=== PATIENT | female | born 1975 | race Hispanic/Latino ===

== ENCOUNTER 2017-06-18 21:17 | Emergency (ER) | payer SELFPAY ==
[2017-06-18] MEDS ORDERED: ALBUTEROL 2.5 MG/3 ML NEB SOL ONE (21:34)
[2017-06-18] MEDS ORDERED: IPRATROPIUM BROM 0.5MG/2.5ML ONE (21:34)
[2017-06-18] MEDS ORDERED: DEXAMETHASONE 10 MG/ML VIAL ONE (21:58)
[2017-06-18] MEDS ORDERED: AZITHROMYCIN 250 MG TAB ONE (21:58)
--- NOTE | 2017-06-18 22:49 | RAD REPORT ---
EXAM DESCRIPTION: RAD - Chest Pa And Lat (2 Views) - 06/18/2017 10:42 pm CLINICAL HISTORY: SOB COMPARISON: None. FINDINGS: The lungs are clear. The heart is normal in size. No displaced fractures. IMPRESSION: No acute or concerning finding suspected.
--- NOTE | 2017-06-18 23:33 | EDPHYS ---
Physician Documentation [facility] Name: Devora Baez Age: 41 yrs Sex: Female : 1975 Arrival Date: 06/18/2017 Time: 21:18 Bed 6 Private MD: ED Physician Chuck Joseph HPI: 06/18 21:48 This 41 yrs old Female presents to ER via Ambulatory with complaints of Cough, snw Shortness Of Breath, Breathing Difficulty. 21:48 The patient or guardian reports airway noise, cough, hoarse voice. Onset: The snw symptoms/episode began/occurred suddenly, and became persistent. Severity of symptoms: At their worst the symptoms were moderate, severe. Associated signs and symptoms: The patient has no apparent associated signs or symptoms. The patient has experienced similar episodes in the past, chronically, but today's symptoms are worse. The patient has not recently seen a physician. pt states she recently moved to [facility] to get assistance with medications and physicians. states she was dx with cystic fibrosis "a long time ago". states she takes no daily meds. Requests nebs, steroids, antibiotics.. 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 - Social history:: Smoking status: Patient/guardian denies using tobacco. ROS: 21:47 Constitutional: Negative for fever, chills, and weight loss, Eyes: Negative for injury, snw pain, redness, and discharge, ENT: Negative for injury, pain, and discharge, Neck: Negative for injury, pain, and swelling, Cardiovascular: Negative for chest pain, palpitations, and edema, Abdomen/GI: Negative for abdominal pain, nausea, vomiting, diarrhea, and constipation, Back: Negative for injury and pain, : Negative for injury, bleeding, discharge, and swelling, MS/Extremity: Negative for injury and deformity, Skin: Negative for injury, rash, and discoloration, Neuro: Negative for headache, weakness, numbness, tingling, and seizure. 21:47 Respiratory: Positive for cough, shortness of breath, wheezing, inspiratory, expiratory. Exam: 21:45 Constitutional: This is a well developed, well nourished patient who is awake, alert, snw and in no acute distress. Head/Face: Normocephalic, atraumatic. Eyes: Pupils equal round and reactive to light, extra-ocular motions intact. Lids and lashes normal. Conjunctiva and sclera are non-icteric and not injected. Cornea within normal limits. Periorbital areas with no swelling, redness, or edema. ENT: Nares patent. No nasal discharge, no septal abnormalities noted. Tympanic membranes are normal and external auditory canals are clear. Oropharynx with no redness, swelling, or masses, exudates, or evidence of obstruction, uvula midline. Mucous membranes moist. Neck: Trachea midline, no thyromegaly or masses palpated, and no cervical lymphadenopathy. Supple, full range of motion without nuchal rigidity, or vertebral point tenderness. No Meningismus. Chest/axilla: Normal chest wall appearance and motion. Nontender with no deformity. No lesions are appreciated. Cardiovascular: Regular rate and rhythm with a normal S1 and S2. No gallops, murmurs, or rubs. Normal PMI, no JVD. No pulse deficits. 21:45 Abdomen/GI: Soft, non-tender, with normal bowel sounds. No distension or tympany. No guarding or rebound. No evidence of tenderness throughout. Back: No spinal tenderness. No costovertebral tenderness. Full range of motion. Skin: Warm, dry with normal turgor. Normal color with no rashes, no lesions, and no evidence of cellulitis. MS/ Extremity: Pulses equal, no cyanosis. Neurovascular intact. Full, normal range of motion. Neuro: Awake and alert, GCS 15, oriented to person, place, time, and situation. Cranial nerves II-XII grossly intact. Motor strength 5/5 in all extremities. Sensory grossly intact. Cerebellar exam normal. Normal gait. 21:45 Respiratory: mild respiratory distress is noted, Respirations: labored breathing, accessory muscle usage, shallow respirations, tachypnea, Breath sounds: wheezing: inspiratory expiratory is heard diffusely. Vital Signs: 21:22 BP 136 / 86; Pulse 87; Resp 19; Temp 97.8; Pulse Ox 100% on R/A; Weight 92.99 kg; la1 Height 4 ft. 11 in. (149.86 cm); 22:28 BP 119 / 91; Pulse 109; Resp 20; Pulse Ox 98% on R/A; Pain 0/10; ao 23:27 BP 118 / 73; Pulse 98; Resp 16; Pulse Ox 99% on R/A; Pain 0/10; ao 21:22 Body Mass Index 41.40 (92.99 kg, 149.86 cm) la1 MDM: 21:25 Patient medically screened. snw 23:35 Data reviewed: vital signs, nurses notes. Data interpreted: Pulse oximetry: on room air snw is 99 %. Interpretation: normal. Counseling: I had a detailed discussion with the patient and/or guardian regarding: the historical points, exam findings, and any diagnostic results supporting the discharge/admit diagnosis, radiology results, the need for outpatient follow up, to return to the emergency department if symptoms worsen or persist or if there are any questions or concerns that arise at home. Special discussion: Based on the history and exam findings, there is no indication for further emergent testing or inpatient evaluation. I discussed with the patient/guardian the need to see the primary care provider for further evaluation of the symptoms. I discussed with the patient/guardian the need to see the associate professor of library science for further evaluation of the symptoms. 06/18 21:25 Order name: Chest Pa And Lat (2 Views) XRAY; Complete Time: 23:03 snw Administered Medications: 21:36 Drug: DuoNeb (3:1) (2.5 mg - 0.5 mg) 3 ml Route: Nebulizer; la1 23:43 Follow up: Response: No adverse reaction ao 22:03 Drug: Decadron 10 mg Route: IM; Site: left deltoid; ao 23:43 Follow up: Response: No adverse reaction ao 22:03 Drug: Zithromax 500 mg Route: PO; ao 23:43 Follow up: Response: No adverse reaction ao Disposition: 06/19 05:44 Co-signature as Attending Physician, Chuck Joseph MD I agree with the assessment and tw4 plan of care. Disposition: 06/18/17 23:32 Discharged to Home. Impression: Wheezing, Dyspnea, unspecified. - Condition is Stable. - Discharge Instructions: Asthma, Adult, Shortness of Breath. - Prescriptions for Prednisone 20 mg Oral Tablet - take 2 tablet by ORAL route once daily for 5 days; 10 tablet. Albuterol Sulfate 90 mcg/actuation - inhale 1-2 puff by INHALATION route every 4-6 hours; 1 Inhaler. Zithromax 500 mg Oral Tablet - take 1 tablet by ORAL route once daily for 5 days; 5 tablet. - Medication Reconciliation Form, Thank You Letter, Antibiotic Education, Prescription Opioid Use form. - Follow up: Private Physician; When: 1 - 2 days; Reason: Recheck today's complaints, Continuance of care, Re-evaluation by your physician. Follow up: Emergency Department; When: As needed; Reason: Worsening of condition. Signatures: Dispatcher [employer] EDMS Mandie Clark, MILAGRO-C METAL TUBE CUTTER-Csnw Venancio Alberts RN RN la1 Jose Eduardo Phillips RN RN ao Chuck Joseph MD MD tw4 Corrections: (The following items were deleted from the chart) 06/18 23:42 23:32 06/18/2017 23:32 Discharged to Home. Impression: Wheezing; Dyspnea, unspecified. ao Condition is Stable. Forms are Medication Reconciliation Form, Thank You Letter, Antibiotic Education, Prescription Opioid Use. Follow up: Private Physician; When: 1 - 2 days; Reason: Recheck today's complaints, Continuance of care, Re-evaluation by your physician. Follow up: Emergency Department; When: As needed; Reason: Worsening of condition. snw
--- NOTE | 2017-06-18 23:33 | ER ---
Nurse's Notes [facility] Name: Devora Baez Age: 41 yrs Sex: Female : 1975 Arrival Date: 06/18/2017 Time: 21:18 Bed 6 Private MD: Diagnosis: Wheezing;Dyspnea, unspecified Presentation: 06/18 21:22 Presenting complaint: Patient states: I have cystic fibrosis and I cannot afford to get la1 care anywhere. I am getting frequent attacks of SOB and I just had a really bad one. I need some IV steroids and breathing treatments. Transition of care: patient was not received from another setting of care. Onset of symptoms was June 18, 2017. Initial Sepsis Screen: Does the patient meet any 2 criteria? No. Patient's initial sepsis screen is negative. Does the patient have a suspected source of infection? No. Patient's initial sepsis screen is negative. Care prior to arrival: None. 21:22 Method Of Arrival: Ambulatory la1 21:22 Acuity: GARCIA 3 la1 Triage Assessment: 21:43 General: Appears in no apparent distress. General: Behavior is cooperative. ao Respiratory: Reports shortness of breath cough that is Onset: The symptoms/episode began/occurred at an unknown time. the patient has moderate shortness of breath. 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 - Social history:: Smoking status: Patient/guardian denies using tobacco. Screenin:42 Abuse screen: Denies threats or abuse. Denies injuries from another. Nutritional ao screening: No deficits noted. Tuberculosis screening: No symptoms or risk factors identified. Fall Risk None identified. Assessment: 21:35 General: Appears in no apparent distress. uncomfortable, obese, Behavior is. Pain: ao Complains of pain in chest. Pain:. Neuro: Level of Consciousness is awake, alert, obeys commands, Oriented to person, place, time, situation, Appropriate for age Moves all extremities. Speech is normal, Facial symmetry appears normal. Cardiovascular: Capillary refill < 3 seconds Patient's skin is warm and dry. Rhythm is regular. Respiratory: Airway is compromised Respiratory effort is even, Respiratory pattern is regular, Sputum is thick, GI: Abdomen is obese, Bowel sounds present X 4 quads. : No signs and/or symptoms were reported regarding the genitourinary system. EENT: No signs and/or symptoms were reported regarding the EENT system. Derm: No signs and/or symptoms reported regarding the dermatologic system. Musculoskeletal: No signs and/or symptoms reported regarding the musculoskeletal system. 22:26 Reassessment: Patient appears in no apparent distress at this time. Patient and/or ao family updated on plan of care and expected duration. Pain level reassessed. Patient is alert, oriented x 3, equal unlabored respirations, skin warm/dry/pink. waiting on dispo. 23:27 Reassessment: Patient appears in no apparent distress at this time. Patient and/or ao family updated on plan of care and expected duration. Pain level reassessed. Patient is alert, oriented x 3, equal unlabored respirations, skin warm/dry/pink. Patient states that she is feeling better and would like to be discharge. Mandie was notified and agree to discharge her. 23:42 Reassessment: DC instructions given to patient. Patient understand the POC and to ao follow up with PCP. Patient has no questions at this time. Vital Signs: 21:22 BP 136 / 86; Pulse 87; Resp 19; Temp 97.8; Pulse Ox 100% on R/A; Weight 92.99 kg; la1 Height 4 ft. 11 in. (149.86 cm); 22:28 BP 119 / 91; Pulse 109; Resp 20; Pulse Ox 98% on R/A; Pain 0/10; ao 23:27 BP 118 / 73; Pulse 98; Resp 16; Pulse Ox 99% on R/A; Pain 0/10; ao 21:22 Body Mass Index 41.40 (92.99 kg, 149.86 cm) la1 ED Course: 21:18 Patient arrived in ED. am2 21:22 Triage completed. la1 21:23 Arm band placed on left wrist. la1 21:24 Mandie Clark FNP-C is PHCP. snw 21:24 Chuck Joseph MD is Attending Physician. snw 21:28 Jose Eduardo Phillips, RN is Primary Nurse. ao 21:42 Patient has correct armband on for positive identification. Pulse ox on. NIBP on. ao 22:40 Chest Pa And Lat (2 Views) XRAY In Process Unspecified. EDMS 23:41 No provider procedures requiring assistance completed. Patient admitted, IV remains in ao place. Administered Medications: 21:36 Drug: DuoNeb (3:1) (2.5 mg - 0.5 mg) 3 ml Route: Nebulizer; la1 23:43 Follow up: Response: No adverse reaction ao 22:03 Drug: Decadron 10 mg Route: IM; Site: left deltoid; ao 23:43 Follow up: Response: No adverse reaction ao 22:03 Drug: Zithromax 500 mg Route: PO; ao 23:43 Follow up: Response: No adverse reaction ao Outcome: 23:32 Discharge ordered by . snmilagro 23:41 Discharged to home ambulatory. ao 23:41 Condition: stable 23:41 Discharge instructions given to patient, Instructed on discharge instructions, follow up and referral plans. Demonstrated understanding of instructions, follow-up care, medications, Prescriptions given X 3. 23:42 Patient left the ED. ao Signatures: Dispatcher [employer] EDMS Mandie Clark, PRODUCT/INDUSTRY CONSULTANT-C PRODUCT/INDUSTRY CONSULTANT-Csnw Venancio Alberts RN RN la1 Jose Eduardo Phillips, RN RN Salina Hdz
== END 2017-06-18 23:42 | disposition home or self-care (01) ==
LOC: ER 21:17
DX: R06.00 Dyspnea, unspecified (principal); Z88.8 Allergy status to other drugs, medicaments and biological substances
CPT/HCPCS: 71046; 94640; 96372; 99284; J1100

== ENCOUNTER 2021-05-29 19:02 | Emergency (ER) | payer OTHER ==
--- OUTSIDE RECORDS SUMMARY | 2021-05-29 19:09 | XMS REPORT | Continuity of Care Document ---
:1975 Author Organization [facility] t Address [address] [place] [address] Care Team Providers Name Role Phone PCP, DOES NOT HAVE A Primary Care Physician Unavailable Joyce Phillips Attending Clinician Unavailable GAURAV ARREOLA Attending Clinician Unavailable GAURAV ARREOLA Attending Clinician Unavailable VIKASH LOMBARDI Attending Clinician Unavailable JOSEFA Attending Clinician Unavailable Lab, - Db Attending Clinician Unavailable Gaurav Arreola MD Attending Clinician [place] Attending Clinician Unavailable Nicholas Cabrera Attending Clinician Unavailable Joyce Phillips Admitting Clinician Unavailable Nicholas Patrick Admitting Clinician Unavailable Payers Payer Name Policy Type Policy Number Effective Date Expiration Date S ource Problems This patient has no known problems. Allergies, Adverse Reactions, Alerts Allergy Allergy Status Severity Reaction(s) Onset Inactive Treating Comm ents Source Name Type Date Date Clinician DOXYCYCL DRUG Active Hiv Univers INE INGREDI 4-22 ity of 00:00: [address] PROMETHA DRUG Active Other-Cmnt Univ ers ZINE INGREDI -22 ity of 00:00: [address] Doxycycl Propensi Active Hives Univer s ine ty to - ity of adverse 00:00: [place] reaction [facility] Prometha Propensi Active Hives 2021-0 Univer s zine ty to 4-22 ity of adverse 00:00: [place] reaction [facility] prometha DA Active U 2020-0 [facility] zine HCl 6-21 Corpus 00:00: [place] [address] [place] prometha DA Active U HYPOTENSION 2020-0 [facility] zine HCl 6-21 Corpus 00:00: [place]amm[place] 00 [place] clindamy DA Active U hives 2020-0 [facility] leanna 6-21 Corpus 00:00: [place]ammie 00 [place] clindamy DA Active U 2020-0 [facility] leanna 6-21 Corpus 00:00: [place]ammie 00 [place] clindamy DA Active U 2020-0 [facility] leanna 1-05 Corpus 00:00: [place]amm[place] 00 [place] clindamy DA Active U hives 2020-0 [facility] leanna 1-05 Corpus 00:00: [place] 00 [place] prometha DA Active U 2020-1 [facility] zine HCl 2-19 Corpus 00:00: [place] 00 [place] prometha DA Active U HYPOTENSION 2020-1 [facility] zine HCl 2-19 Corpus 00:00: [place]ammie 00 [place] prometha DA Active U 2020-0 [facility] zine HCl 3-08 Corpus 00:00: [place]ammie 00 [place] prometha DA Active U HYPOTENSION 2020-0 [facility] zine HCl 3-08 Corpus 00:00: [place]ammie 00 [place] prometha DA Active U 2010-0 [facility] zine HCl 8-01 Corpus 00:00: [place]amm[place] 00 [place] prometha DA Active U HYPOTENSION 2010-0 [facility] zine HCl 8-01 Corpus 00:00: [place]amm[place] 00 [place] NO KNOWN Drug Active Univers ALLERGIE Class ity of [facility] Social History Social Habit Start Date Stop Date Quantity Comments Source Exposure to 2021-05-18 2021-05-28 Not sure [facility] SARS-CoV-2 (event) 00:00:00 13:13:00 Medica l Branch Sex Assigned At [birth year] [facility] 00:00:00 00:00:00 Medical Branch Smoking Status Start Date Stop Date Source Unknown if ever smoked [facility] Medications Ordered Filled Start Stop Current Ordering Indication Dosage Frequency Signature Comments Components Source Medication Medication Date Date Medication? Clinician (SIG) Name Name cetirizine Yes 10mg Take 10 mg U nivers 10 mg 4-18 by mouth ity of tablet 00:00: daily. [place] [address] Medical Branch pantoprazol Yes 40mg Take 40 mg Univers e 40 mg EC 4-14 by mouth ity o f tablet 00:00: daily. [place] [address] Medical Branch venlafaxine Yes TAKE ONE Un keanu 75 mg 4-06 (1) ity of tablet 00:00: TABLET(S) BY MOUTH Medical WITH FOOD Branch ONCE A DAY FOR 30 DAY(S). propranolol Yes TAKE ONE Un keanu [place] 80 mg 24 4-06 (1) ity of hr capsule 00:00: CAPSULE(S) [place] 00 BY MOUTH Medical ONCE A DAY Branch FOR 30 DAYS. gabapentin Yes 400mg Take 400 Un keanu 400 mg 4-06 mg by ity of capsule 00:00: mouth [place] daily. Medical Branch fluticasone Yes INSTILL Uni vers propionate 4-06 ONE (1) ity of 50 00:00: SPRAY IN [place] mcg/actuati 00 EACH Medical on nasal NOSTRIL Branch spray ONCE A DAY FOR 30 DAY(S). PROAIR HFA Yes INHALE ONE U nivers 90 4-05 (1) PUFF ity of mcg/actuati 00:00: NEEDED [place] on inhaler 00 BY MOUTH Medic al EVERY 4 Branch HOURS. predniSONE Yes TAKE TWO Uni vers 20 mg 4-05 (2) ity of tablet 00:00: TABLET(S) BY MOUTH Medical DAILY FOR Branch FIVE DAYS. levalbutero Yes INHALE THE Univers l 1.25 mg/3 4-05 CONTENTS ity of mL 00:00: OF ONE [place] nebulizer 00 VIAL VIA Medica l solution NEBULIZER Branch EVERY 8 HOURS. LINZESS 290 Yes TAKE ONE Un keanu mcg Cap 3-25 (1) ity of 00:00: CAPSULE(S) BY MOUTH Medical ONCE A DAY Branch AT LEAST 30 MINUTES BEFORE THE FIRST MEAL OF THE DAY. escitalopra Yes TAKE ONE Un keanu m oxalate 2-26 (1) ity of 10 mg 00:00: TABLET(S) [place] tablet 00 BY MOUTH Medical ONCE A DAY Branch FOR 90 DAYS. oseltamivir Yes TAKE ONE Un keanu 75 mg 2-25 (1) ity of capsule 00:00: CAPSULE(S) [place] 00 BY MOUTH Medical TWICE A Branch DAY FOR 5 DAYS. butalbital- Yes TAKE ONE Un keanu acetaminoph 2-25 (1) ity of en-caff 00:00: TABLET(S) [place] 50-325-40 00 BY MOUTH Medica l mg tablet EVERY FOUR Bran ch HOURS NEEDED. Procedures Procedure Date / Time Performed Performing Clinician [facility] ava [id number] 2020-07-28 00:00:00 REDVE [facility] Encounters Start End Encounter Admission Attending Care Care Encounter Source Date/Time Date/Time Type Type Clinicians Facility Department ID 2020-07-28 [facility] [id number] 11:53:00 Rachel [id number] [facility] 2020-02-11 Inpatient [facility] ER [id number] [facility] 13:38:00 [id number] [facility] 2020-02-03 Inpatient [facility] ER [id number] [facility] 13:40:00 [id number] [facility] 2020-01-28 Inpatient [facility] ER [id number] [facility] 11:40:00 [id number] [facility] 2020-01-25 Inpatient [facility] ER [id number] [facility] 19:07:00 [id number] [facility] 2020-01-06 Inpatient [facility] ER [id number] [facility] 09:54:00 [id number] [facility] 2019-11-09 Inpatient [facility] ER [id number] [facility] 22:06:00 [id number] [facility] 2019-07-04 Inpatient [facility] ER [id number] [facility] 02:45:00 [id number] [facility] 2019-05-23 Inpatient [facility] ER [id number] 16:42:00 [id number] [facility] 2019-04-14 Inpatient [facility] ER [id number] [facility] 17:14:00 [id number] [facility] 2019-03-19 Inpatient [facility] ER [id number] [facility] 17:44:00 [id number] [facility] 2021-07-30 2021-07-30 Outpatient R NEGRITO ARREOLA [facility] [id number] Univers 11:00:00 11:00:00 NEGRITO ARREOLA [id number] [facility] 2021-06-29 2021-06-29 Outpatient R HARJIT, [facility] [id number] Univers 11:00:00 11:00:00 JACKSON [id number] [facility] 2021-06-10 2021-06-10 Outpatient R JOSEFA, [facility] [id number] Univers 13:00:00 13:00:00 ANALI [id number] [facility] 2021-05-28 2021-05-28 [facility], Ang - Db [facility] [id number] Univers 15:00:00 15:15:00 Visit Negrito Arreola [facility] [id number] [facility] [id number] Obed as SHAKILA?BLEA [phone] [address] MEDICAL OFFICE BUILDING 2021-05-28 2021-05-28 Outpatient R [facility] [id number] Univers 15:00:00 15:00:00 [id number] [facility] 2021-05-28 2021-05-28 Outpatient NEGRITO GALE [facility] [id number] Univers 15:00:00 15:00:00 ELBANEGRITO Mena [facility] 2021-01-26 2021-01-26 Emergency EM [place], [facility] ER [id number] [facility] 21:25:00 22:28:00 Sendy [id number] [facility] 2021-01-26 2021-01-26 Emergency EM [place], [facility] [id number] [facility] 21:25:00 22:28:00 Sendy 30 [facility] 2020-09-19 2020-09-[address] [facility], [facility] ER [id number] [facility] 17:03:00 21:50:00 Medda [id number] [facility] 2020-07-27 2020-07-30 Inpatient SIMEON Phillips, [facility] [id number] [facility] 16:41:00 20:11:00 Rachel [id number] [facility] Results Test Description Test Time Test Comments Results Result Comments Source UA RFLX MICROSCOPIC CULTURE 2021-01-26 22:03:00 Test Item Value Reference Range Interpretation Comme nts UA COLOR (test code = COLU) YELLOW YELLOW UA APPEARANCE (test code = APPU) CLEAR CLEAR UA GLUCOSE DIPSTICK (test code = DGLUU) NEGATIVE mg/dL NEGATIVE UA BILIRUBIN DIPSTICK (test code = BILU) NEGATIVE NEGATIVE UA KETONE DIPSTICK (test code = KETU) NEGATIVE mg/dL NEGATIVE UA SPECIFIC GRAVITY (test code = SGU) 1.025 1.001-1.035 N UA BLOOD DIPSTICK (test code = ЮЛИЯ) 1+ NEGATIVE A UA PH DIPSTICK (test code = EDY) 6.0 5.5-7.0 N UA PROTEIN DIPSTICK (test code = PROU) 15 mg/dL NEGATIVE A UA UROBILINOGEN DIPSTICK (test code = URO) NORMAL mg/dL NORMAL UA NITRITE DIPSTICK (test code = BLANQUITA) NEGATIVE NEGATIVE UA LEUKOCYTE ESTERASE DIPSTICK (test code = LEUU) 25 NEGA TIVE A UA COMMENT (test code = COMU) LESS THAN 10 ML VOL URINE SPECIMEN DESCRIPTION (test code = UASPEC) Clean Catch UA WBC (test code = WBCU) < 10 #/hpf <10 UA SQUAMOUS CELLS (test code = SQU) 40 - 60 #/lpf <100 UA CULTURE NEEDED? (test code = UACULT) Criteria not met Indication for culture: Suprapubic PainURINE SOURCE: Clean CatchUA [id number] 22:03:00 Test Item Value Reference Range Interpretation Comments UA RBC (test code = RBCU) 16-20 #/hpf NONE SEEN UA BACTERIA (test code = BACU) 3+ #/hpf NONE SEEN UA MUCUS (test code = MUCU) 1+ #/lpf NONE SEEN Indication for culture: Suprapubic PainURINE SOURCE: Clean CatchLACTIC ACID 2020-09-19 19:59:00 Test Item Value Reference Range Interpretation Comments LACTIC ACID (test code = LACT) 0.8 MMOL/L 0.5-2.2 N COMPREHENSIVE METABOLIC [id number] 19:57:00 Test Item Value Reference Range Interpretation Comments SODIUM (test code = 138 MMOL/L 133-145 N NA) POTASSIUM (test code = 4.2 MMOL/L 3.6-5.2 N K) CHLORIDE (test code = 103 MMOL/L 100-108 N CL) CARBON DIOXIDE (test 29 MMOL/L 22-32 N code = CO2) GLUCOSE (test code = 76 MG/DL 65-99 N Results of this assay GLU) method may be f alsely depressed orele vated if patient is t aking sulfasalazine. BLOOD UREA NITROGEN 7 MG/DL 6-20 N (test code = BUN) GLOMERULAR FILTRATION 75 58-135 N Report ing units: RATE (test code = GFR) mL/mi n/1.73m\\S\\2 (Modified MDRD Formula) CREATININE (test code 0.82 MG/DL 0.60-1.00 N = CREAT) TOTAL PROTEIN (test 7.2 G/DL 6.4-8.2 N code = PROT) ALBUMIN (test code = 3.4 G/DL 3.4-5.0 N ALB) GLOBULIN (test code = 3.8 G/DL 1.5-3.8 N GLOB) ALBUMIN/GLOBULIN RATIO 0.9 1.1-2.2 L (test code = A/G) CALCIUM (test code = 8.8 MG/DL 8.7-10.5 N CA) BILIRUBIN TOTAL (test 0.3 MG/DL 0.0-1.0 N code = BILT) SGOT/AST (test code = 30 Units/L 15-37 N Result s of this assay AST) method may be f alsely depressed orele vated if patient is t aking sulfasalazine. SGPT/ALT (test code = 51 Units/L 30-65 N Result s of this assay ALT) method may be f alsely depressed orele vated if patient is t aking sulfasalazine. ALKALINE PHOSPHATASE 95 Units/L 50-136 N TOTAL (test code = ALKP) HCG SERUM [id number] 19:43:00 Test Item Value Reference Range Interpretation Comments HCG SERUM QUAL NEGATIVE NEGATIVE False negativ es may occur (test code = when levels of hCGare below HCGQL) 10 mIU/ml. When is still suspec ronald, a new specimenshould be obtained after 48 hours and re-tested.If wa iting 48 hours is not me dically advisable,the t est result should be confi rmed using aquantitative h CG assay. CBC W/AUTO [id number] 19:38:00 Test Item Value Reference Range Interpretation Comments WHITE BLOOD CELL (test code = 5.74 x10 3/uL 4.80-10.80 N WBC) RED BLOOD CELL (test code = 4.45 x10 6/uL 4.2-5.4 N RBC) HEMOGLOBIN (test code = HGB) 12.6 G/DL 12.0-16.0 N HEMATOCRIT (test code = HCT) 38.9 % 37-47 N MEAN CELL VOLUME (test code = 87.4 FL 81-99 N MCV) MEAN CELL HGB (test code = MCH) 28.3 PG 27-31 N MEAN CELL HGB CONCENTRATION 32.4 G/DL 33-37 L (test code = MCHC) RED CELL DISTRIBUTION WIDTH 17.2 % 11.5-14.5 H (test code = RDW) PLATELET COUNT (test code = 282 x10 3/uL 150-450 N PLT) MEAN PLATELET VOLUME (test code 8.8 FL 7.4-10.4 N = MPV) NEUTROPHIL % (test code = NT%) 45.9 % 42-86 N LYMPHOCYTE % (test code = LY%) 33.3 % 24-44 N MONOCYTE % (test code = MO%) 19.2 % 0.0-4.0 H EOSINOPHIL % (test code = EO%) 1.6 % 0.0-2.7 N BASOPHIL % (test code = BA%) 0.0 % 0.0-0.5 N NEUTROPHIL # (test code = NT#) 2.64 x10 3/uL 1.8-7.7 N LYMPHOCYTE # (test code = LY#) 1.91 x10 3/uL 1.0-4.8 N MONOCYTE # (test code = MO#) 1.10 x10 3/uL 0.0-0.8 H EOSINOPHIL # (test code = EO#) 0.09 x10 3/uL 0.0-0.5 N BASOPHIL # (test code = BA#) 0.00 x10 3/uL 0.0-0.2 N - XR CHEST 1 [id number] 18:12:00 [facility] : 1975 Sex: F Patient Name: KAREEN LOTT Unit No: [id number] EXAMS: CPT CODE: [id number] XR CHEST 1 V [id number] Reason: COUGH EXAM: - XR CHEST 1 V LOCATION: C3 HISTORY: COUGH COMPARISON: 07/27/2020 FINDINGS: Single view of the chest. No indwelling lines or tubes. No pneumothorax. The lungs are clear without significant effusions. The mediastinal contours are unremarkable/unchanged. No acute osseous findings are present. IMPRESSION: No acute cardiopulmonary abnormality. at 1812 Reported and signed by: Surjit Ortiz MD CC: Christiano Singh SAP ARIBA CONSULTANT; Radha Patrick DO; Omi Cabrera MD Technologist: Jame Medina CT Trscrpt Dt/ ([email or web address] Orig Print D/T: S: 09/19/2020 (181) [place] FSED NAME: KAREEN LOTT [facility] [address] [place] [address] PHYS: Omi Oh MD [address] : 1975 AGE: 45 SEX: F [place], [place] [address] LOC: REJI PHONE #: [phone] EXAM DATE: 09/19/2020 STATUS: REG ER FAX #: RAD NO: DC Dt: PAGE 1 Signed ReportCOVID 19 INHOUSE [id number] 17:59:00 Test Item Value Reference Range Interpretation Comments COVID 19 POSITIVE Negative A Results called to and read back INHOUSE AG by ARLEEN MORRIS PE, RN; [id number], (test code = 09/19/20, Mamadou Walters." [id number]) The Kelsie SARS Antigen DARELL does not differentia te betweenSARS-CoV and SARS-CoV-2 " The Kelsie SARS Antigen DARELL emp loys immunofluoresce ncetechnology in a sandwich design that is used with Kelsie todetect nucleocapsid protein from SA RS-CoV and SARS-CoV-2.This test allows for the detection o f SARS-CoV [id number]-6. The test detects, but does not differentiate,b etween the two viruses. " Resu lts are for the identification of UMBW-ArU-1kygwr ocapsid protein antigen. Antige n is generallydetect able in upper respiratory spe cimens during the acutephase of i nfection. Positive results indicat e the presenceof viral antigens, but clinical correlation wit h patienthistory and other diagn ostic information is necessary to determine infection statu s. Positive results do not rule outbacterial infection or co -infection with other viruses. Theagent detected may not be the definite cause of disease. " Nega tive results should be treat ed as presumptive " This test has not been FDA cleared or appr carol; the testhas been authorized by FDA under an Emergency UseAu thorization (EUA) for use by labo ratories certified underthe CLIA t hat meet the requirements to perform moderate,high o r waived complexity test s. This test is authorized foru se at the Point of Care (POC), i.e ., in patient caresettings op erating under a CLIA Certificat e of Waiver,Certific ate of Compliance, or Certificate of Accreditation MYCOPLASMA PNEUMONIAE [id number] 07:15:00 Test Item Value Reference Range Interpretation Comments MYCOPLASMA Negative Negative No Mycoplasma p neumoniae DNA PNEUMONIAE DNA detected.This test was (test code = developed and i ts performance MYCODNA) characteristics determined by [facility]. It kuo s not been cleared or appr ovedby the Food and Drug Admini stration. The FDA hasdetermin ed that such clearance or ap proval is notnecessary.Pe rformed At: [facility] [id number] [place], [place] [id number] ra Ame [place] Ph:[phone] AB MYCOPLASMA [id number] 22:07:00 Test Item Value Reference Range Interpretation Comments AB MYCOPLASMA IGM < 770 U/mL 0-769 (test code = Negative MYCOMAB) <770Clinically significant latonya unt of M. pneumoniae antibodynot det ected. Low Positive 770 - 950M. pneumonia e specific IgM presumptively d etected. Itis recommend ed that another sample be collected 1-2we eks later to assure reactivity. Positive >950Highly sign ificant amount of M. pn eumoniae specificIgM ant ibody detected.Perfor med At: [facility] [address] [id number] ra Ame [place] Ph:[phone] COMPREHENSIVE METABOLIC [id number] 17:26:00 Test Item Value Reference Range Interpretation Comments SODIUM (test code = 139 MMOL/L 133-145 N NA) POTASSIUM (test code = 4.2 MMOL/L 3.6-5.2 N K) CHLORIDE (test code = 102 MMOL/L 100-108 N CL) CARBON DIOXIDE (test 24 MMOL/L 22-32 N code = CO2) GLUCOSE (test code = 97 MG/DL 65-99 N Results of this GLU) assay method ma y be falsely depress ed orelevated if patient is taki ng sulfasalazine. BLOOD UREA NITROGEN 7 MG/DL 6-20 N (test code = BUN) GLOMERULAR FILTRATION 97 58-135 N Report ing units: RATE (test code = GFR) mL/mi n/1.73m\\S\\2 (Modified MDRD Formula) CREATININE (test code 0.66 MG/DL 0.60-1.00 N = CREAT) TOTAL PROTEIN (test 6.8 G/DL 6.4-8.2 N code = PROT) ALBUMIN (test code = 3.1 G/DL 3.4-5.0 L ALB) GLOBULIN (test code = 3.7 G/DL 1.5-3.8 N GLOB) ALBUMIN/GLOBULIN RATIO 0.8 1.1-2.2 L (test code = A/G) CALCIUM (test code = 8.4 MG/DL 8.7-10.5 L CA) BILIRUBIN TOTAL (test 0.3 MG/DL 0.0-1.0 N code = BILT) SGOT/AST (test code = 30 Units/L 15-37 N Result s of this AST) assay method ma y be falsely depress ed orelevated if patient is taki ng sulfasalazine. SGPT/ALT (test code = 44 Units/L 30-65 N Result s of this ALT) assay method ma y be falsely depress ed orelevated if patient is taki ng sulfasalazine. ALKALINE PHOSPHATASE 108 Units/L 50-136 N TOTAL (test code = ALKP) [id number] 17:26:00 Test Item Value Reference Range Interpretation Comments MAGNESIUM (test code = MAG) 2.1 MG/DL 1.8-2.4 N COMPREHENSIVE METABOLIC [id number] 08:59:00 Test Item Value Reference Range Interpretation Comments SODIUM (test code = 140 MMOL/L 133-145 N NA) POTASSIUM (test code = 3.9 MMOL/L 3.6-5.2 N K) CHLORIDE (test code = 107 MMOL/L 100-108 N CL) CARBON DIOXIDE (test 26 MMOL/L 22-32 N code = CO2) GLUCOSE (test code = 86 MG/DL 65-99 N Results of this assay GLU) method may be f alsely depressed orele vated if patient is t aking sulfasalazine. BLOOD UREA NITROGEN 9 MG/DL 6-20 N (test code = BUN) GLOMERULAR FILTRATION 85 58-135 N Report ing units: RATE (test code = GFR) mL/mi n/1.73m\\S\\2 (Modified MDRD Formula) CREATININE (test code 0.74 MG/DL 0.60-1.00 N = CREAT) TOTAL PROTEIN (test 6.6 G/DL 6.4-8.2 N code = PROT) ALBUMIN (test code = 2.8 G/DL 3.4-5.0 L ALB) GLOBULIN (test code = 3.8 G/DL 1.5-3.8 N GLOB) ALBUMIN/GLOBULIN RATIO 0.7 1.1-2.2 L (test code = A/G) CALCIUM (test code = 8.2 MG/DL 8.7-10.5 L CA) BILIRUBIN TOTAL (test 0.4 MG/DL 0.0-1.0 N code = BILT) SGOT/AST (test code = 16 Units/L 15-37 N Result s of this assay AST) method may be f alsely depressed orele vated if patient is t aking sulfasalazine. SGPT/ALT (test code = 37 Units/L 30-65 N Result s of this assay ALT) method may be f alsely depressed orele vated if patient is t aking sulfasalazine. ALKALINE PHOSPHATASE 86 Units/L 50-136 N TOTAL (test code = ALKP) [id number] 08:59:00 Test Item Value Reference Range Interpretation Comments MAGNESIUM (test code = MAG) 2.0 MG/DL 1.8-2.4 N C REACTIVE [id number] 08:50:00 Test Item Value Reference Range Interpretation Comments C REACTIVE PROTEIN (test code = 11.9 MG/DL < 0.9 H CRP) CBC W/AUTO [id number] 08:25:00 Test Item Value Reference Range Interpretation Comments WHITE BLOOD CELL (test code = 8.00 x10 3/uL 4.80-10.80 N WBC) RED BLOOD CELL (test code = 4.16 x10 6/uL 4.2-5.4 L RBC) HEMOGLOBIN (test code = HGB) 10.8 G/DL 12.0-16.0 L HEMATOCRIT (test code = HCT) 36.4 % 37-47 L MEAN CELL VOLUME (test code = 87.5 FL 81-99 N MCV) MEAN CELL HGB (test code = MCH) 26.0 PG 27-31 L MEAN CELL HGB CONCENTRATION 29.7 G/DL 33-37 L (test code = MCHC) RED CELL DISTRIBUTION WIDTH 19.7 % 11.5-14.5 H (test code = RDW) PLATELET COUNT (test code = 275 x10 3/uL 150-450 N PLT) MEAN PLATELET VOLUME (test code 9.3 FL 7.4-10.4 N = MPV) NEUTROPHIL % (test code = NT%) 64.2 % 42-86 N IMMATURE GRANULOCYTE % (test 0.6 % 0.0-2.0 N code = IG%) LYMPHOCYTE % (test code = LY%) 22.8 % 24-44 L MONOCYTE % (test code = MO%) 7.6 % 0.0-4.0 H EOSINOPHIL % (test code = EO%) 4.3 % 0.0-2.7 H BASOPHIL % (test code = BA%) 0.5 % 0.0-0.5 N NUCLEATED RBC % (test code = 0.0 % 0.0-0.0 N NRBC%) NEUTROPHIL # (test code = NT#) 5.14 x10 3/uL 1.8-7.7 N IMMATURE GRANULOCYTE # (test 0.05 x10 3/uL 0.00-0.03 H code = IG#) LYMPHOCYTE # (test code = LY#) 1.82 x10 3/uL 1.0-4.8 N MONOCYTE # (test code = MO#) 0.61 x10 3/uL 0.0-0.8 N EOSINOPHIL # (test code = EO#) 0.34 x10 3/uL 0.0-0.5 N BASOPHIL # (test code = BA#) 0.04 x10 3/uL 0.0-0.2 N NUCLEATED RBC # (test code = 0.0 X10 3/uL 0.0-0.2 N NRBC#) COMPREHENSIVE METABOLIC [id number] 08:23:00 Test Item Value Reference Range Interpretation Comments SODIUM (test code = 141 MMOL/L 133-145 N NA) POTASSIUM (test code = 3.8 MMOL/L 3.6-5.2 N K) CHLORIDE (test code = 106 MMOL/L 100-108 N CL) CARBON DIOXIDE (test 25 MMOL/L 22-32 N code = CO2) GLUCOSE (test code = 93 MG/DL 65-99 N Results of this assay GLU) method may be f alsely depressed orele vated if patient is t aking sulfasalazine. BLOOD UREA NITROGEN 8 MG/DL 6-20 N (test code = BUN) GLOMERULAR FILTRATION 96 58-135 N Report ing units: RATE (test code = GFR) mL/mi n/1.73m\\S\\2 (Modified MDRD Formula) CREATININE (test code 0.67 MG/DL 0.60-1.00 N = CREAT) TOTAL PROTEIN (test 5.9 G/DL 6.4-8.2 L code = PROT) ALBUMIN (test code = 2.9 G/DL 3.4-5.0 L ALB) GLOBULIN (test code = 3.0 G/DL 1.5-3.8 N GLOB) ALBUMIN/GLOBULIN RATIO 1.0 1.1-2.2 L (test code = A/G) CALCIUM (test code = 8.1 MG/DL 8.7-10.5 L CA) BILIRUBIN TOTAL (test 0.7 MG/DL 0.0-1.0 N code = BILT) SGOT/AST (test code = 15 Units/L 15-37 N Result s of this assay AST) method may be f alsely depressed orele vated if patient is t aking sulfasalazine. SGPT/ALT (test code = 35 Units/L 30-65 N Result s of this assay ALT) method may be f alsely depressed orele vated if patient is t aking sulfasalazine. ALKALINE PHOSPHATASE 90 Units/L 50-136 N TOTAL (test code = ALKP) [id number] 08:23:00 Test Item Value Reference Range Interpretation Comments MAGNESIUM (test code = MAG) 2.3 MG/DL 1.8-2.4 N CBC W/AUTO [id number] 08:20:00 Test Item Value Reference Range Interpretation Comments WHITE BLOOD CELL (test code = 12.63 x10 3/uL 4.80-10.80 H WBC) RED BLOOD CELL (test code = 4.15 x10 6/uL 4.2-5.4 L RBC) HEMOGLOBIN (test code = HGB) 10.7 G/DL 12.0-16.0 L HEMATOCRIT (test code = HCT) 36.0 % 37-47 L MEAN CELL VOLUME (test code = 86.7 FL 81-99 N MCV) MEAN CELL HGB (test code = 25.8 PG 27-31 L MCH) MEAN CELL HGB CONCENTRATION 29.7 G/DL 33-37 L (test code = MCHC) RED CELL DISTRIBUTION WIDTH 19.8 % 11.5-14.5 H (test code = RDW) PLATELET COUNT (test code = 278 x10 3/uL 150-450 N PLT) MEAN PLATELET VOLUME (test 9.0 FL 7.4-10.4 N code = MPV) NEUTROPHIL % (test code = NT%) 84.6 % 42-86 N IMMATURE GRANULOCYTE % (test 0.6 % 0.0-2.0 N code = IG%) LYMPHOCYTE % (test code = LY%) 9.0 % 24-44 L MONOCYTE % (test code = MO%) 5.1 % 0.0-4.0 H EOSINOPHIL % (test code = EO%) 0.2 % 0.0-2.7 N BASOPHIL % (test code = BA%) 0.5 % 0.0-0.5 N NUCLEATED RBC % (test code = 0.0 % 0.0-0.0 N NRBC%) NEUTROPHIL # (test code = NT#) 10.68 x10 3/uL 1.8-7.7 H IMMATURE GRANULOCYTE # (test 0.08 x10 3/uL 0.00-0.03 H code = IG#) LYMPHOCYTE # (test code = LY#) 1.14 x10 3/uL 1.0-4.8 N MONOCYTE # (test code = MO#) 0.65 x10 3/uL 0.0-0.8 N EOSINOPHIL # (test code = EO#) 0.02 x10 3/uL 0.0-0.5 N BASOPHIL # (test code = BA#) 0.06 x10 3/uL 0.0-0.2 N NUCLEATED RBC # (test code = 0.0 X10 3/uL 0.0-0.2 N NRBC#) AG STREPTOCOCCUS [id number] 06:43:00 Test Item Value Reference Range Interpretation Comments AG STREPTOCOCCUS NEGATIVE NEGATIVE Presumptive negative PNEUMO (test code = for pneu mococcal STREPPNAG) pneumonia, sugg estingno current or rece nt pneumococcal in fection. Infection duet o Strep pneumonia canno t be ruled out since the antigenpresent in the sample may be b elow the detection limit ofthe test. LEGIONELLA ANTIGEN [id number] 06:43:00 Test Item Value Reference Range Interpretation Comments LEGIONELLA ANTIGEN NEGATIVE Negative Presumpti ve NEGATIVE for URINE (test code = L. pneumo nphila serogroup LEGAGUR) 1 antigenin the urine, suggesting no c urrent, or past infection. Infection due to Legionel la cannot be ruled out si nce otherserogroups and species may cau se disease, antige n may not bepresent in ea rly detection, and the level of antigen pres entin the urine may be be low the detection limit of the test. UA RFLX MICROSCOPIC [id number] 06:29:00 Test Item Value Reference Range Interpretation Comments UA COLOR (test code = COLU) Light-Yellow YELLOW UA APPEARANCE (test code = CLEAR CLEAR APPU) UA GLUCOSE DIPSTICK (test NORMAL mg/dL NEGATIVE code = DGLUU) UA BILIRUBIN DIPSTICK (test NEGATIVE NEGATIVE code = BILU) UA KETONE DIPSTICK (test NEGATIVE mg/dL NEGATIVE code = KETU) UA SPECIFIC GRAVITY (test 1.042 1.001-1.035 H code = SGU) UA BLOOD DIPSTICK (test code NEGATIVE NEGATIVE = ЮЛИЯ) UA PH DIPSTICK (test code = 7.0 5.5-7.0 N EDY) UA PROTEIN DIPSTICK (test 10 mg/dL NEGATIVE code = PROU) UA UROBILINOGEN DIPSTICK NORMAL mg/dL NORMAL (test code = URO) UA NITRITE DIPSTICK (test NEGATIVE NEGATIVE code = BLANQUITA) UA LEUKOCYTE ESTERASE NEGATIVE NEGATIVE DIPSTICK (test code = LEUU) UA COMMENT (test code = VOLUME 10-12 ML COMU) URINE SPECIMEN DESCRIPTION Clean Catch (test code = UASPEC) UA WBC (test code = WBCU) < 10 #/HPF 0-10 UA SQUAMOUS CELLS (test code 41 - 60 #/LPF <100 A = SQU) UA CULTURE NEEDED? (test Criteria not met code = UACULT) Indication for culture: Suprapubic PainURINE SOURCE: Clean CatchUA [id number] 06:29:00 Test Item Value Reference Range Interpretation Comments UA RBC (test code = RBCU) 0-2 #/HPF NONE SEEN UA BACTERIA (test code = BACU) Trace HPF NONE SEEN UA TRANSITIONAL CELLS (test code = RARE #/LPF NONE SEEN TRANU) Indication for culture: Suprapubic PainURINE SOURCE: Clean CatchUA RFLX MICROSCOPIC [id number] 06:23:00 Test Item Value Reference Range Interpretation Comments UA COLOR (test code = COLU) Light-Yellow YELLOW UA APPEARANCE (test code = CLEAR CLEAR APPU) UA GLUCOSE DIPSTICK (test NORMAL mg/dL NEGATIVE code = DGLUU) UA BILIRUBIN DIPSTICK (test NEGATIVE NEGATIVE code = BILU) UA KETONE DIPSTICK (test code NEGATIVE mg/dL NEGATIVE = KETU) UA SPECIFIC GRAVITY (test 1.042 1.001-1.035 H code = SGU) UA BLOOD DIPSTICK (test code NEGATIVE NEGATIVE = ЮЛИЯ) UA PH DIPSTICK (test code = 7.0 5.5-7.0 N EDY) UA PROTEIN DIPSTICK (test 10 mg/dL NEGATIVE code = PROU) UA UROBILINOGEN DIPSTICK NORMAL mg/dL NORMAL (test code = URO) UA NITRITE DIPSTICK (test NEGATIVE NEGATIVE code = BLANQUITA) UA LEUKOCYTE ESTERASE NEGATIVE NEGATIVE DIPSTICK (test code = LEUU) UA COMMENT (test code = COMU) VOLUME 10-12 ML URINE SPECIMEN DESCRIPTION Clean Catch (test code = UASPEC) UA WBC (test code = WBCU) #/hpf <10 UA SQUAMOUS CELLS (test code #/lpf <100 = SQU) UA CULTURE NEEDED? (test code = UACULT) Indication for culture: Suprapubic PainURINE SOURCE: Clean CatchUA [id number] 06:23:00 Test Item Value Reference Range Interpretation Comments UA RBC (test code = RBCU) #/hpf NONE SEEN Indication for culture: Suprapubic PainURINE SOURCE: Clean CatchUA RFLX MICROSCOPIC [id number] 06:23:00 Test Item Value Reference Range Interpretation Comments UA COLOR (test code = COLU) Light-Yellow YELLOW UA APPEARANCE (test code = CLEAR CLEAR APPU) UA GLUCOSE DIPSTICK (test NORMAL mg/dL NEGATIVE code = DGLUU) UA BILIRUBIN DIPSTICK (test NEGATIVE NEGATIVE code = BILU) UA KETONE DIPSTICK (test code NEGATIVE mg/dL NEGATIVE = KETU) UA SPECIFIC GRAVITY (test 1.042 1.001-1.035 H code = SGU) UA BLOOD DIPSTICK (test code NEGATIVE NEGATIVE = ЮЛИЯ) UA PH DIPSTICK (test code = 7.0 5.5-7.0 N EDY) UA PROTEIN DIPSTICK (test 10 mg/dL NEGATIVE code = PROU) UA UROBILINOGEN DIPSTICK NORMAL mg/dL NORMAL (test code = URO) UA NITRITE DIPSTICK (test NEGATIVE NEGATIVE code = BLANQUITA) UA LEUKOCYTE ESTERASE NEGATIVE NEGATIVE DIPSTICK (test code = LEUU) UA COMMENT (test code = COMU) VOLUME 10-12 ML URINE SPECIMEN DESCRIPTION Clean Catch (test code = UASPEC) UA WBC (test code = WBCU) #/hpf <10 UA SQUAMOUS CELLS (test code #/lpf <100 = SQU) UA CULTURE NEEDED? (test code = UACULT) Indication for culture: Suprapubic PainURINE SOURCE: Clean CatchUA [id number] 06:23:00 Test Item Value Reference Range Interpretation Comments UA RBC (test code = RBCU) #/hpf NONE SEEN Indication for culture: Suprapubic PainURINE SOURCE: Clean CatchARTERIAL BLOOD [id number] 04:24:00 Test Item Value Reference Range Interpretation Comments ARTERIAL BLOOD GAS PH (test code 7.37 7.35-7.45 N = PHA) ARTERIAL BLOOD GAS PCO2 (test 41.3 mmHg 35.0-45.0 N code = PCO2A) ARTERIAL BLOOD GAS PO2 (test code 75.5 mmHg 80.0-100.0 L = PO2A) BICARBONATE TOTAL HCO3 (test code 23.5 mmol/L 20.0-26.0 N = HCO3) BASE EXCESS (test code = BESSIE) -1.6 mmol/L -3.0-3.0 N ABG O2 SATURATION (test code = 95.9 % 95-100 N SATA) ABG TYPE (test code = TYPEA) Arterial MODE (test code = MODE) RA ABG PATIENT RESP RATE (test code 20.0 /MIN = RRPATA) ABG TEMPERATURE (test code = 98.6 F TEMPA) CHANEL TEST (test code = ALN) Yes ABG SITE (test code = SITEA) LR TOTAL HGB (test code = THB) 12.3 G/DL 12.0-16.0 N OXYHEMOGLOBIN (test code = 94.0 % 92.0-98.0 N OOHGBT) CARBOXYHEMOGLOBIN (test code = 1.6 % 0.5-1.5 H HOHGBT) METHEMOGLOBIN (test code = 0.4 % 0.4-1.5 N METHGB) SED [id number] 23:10:00 Test Item Value Reference Range Interpretation Comments SED RATE (test code = SEDW) 19 MM/HR 0-20 N [id number] 22:39:00 Test Item Value Reference Range Interpretation Comments FERRITIN (test code = ORTIZ) 63 NG/ML 3-105 N PROTHROMBIN [id number] 22:27:00 Test Item Value Reference Range Interpretation Comments PROTHROMBIN TIME 14.2 SECONDS 9.6-12.3 H PATIENT (test code = PTP) INTERNATIONAL NORMAL 1.25 Recomme nded INR range RATIO (test code = (warfarin therapy): INR) 2.0 - 3.0I NR (International Normalized Rati o) should beused w hen interpreting or al anticoaglulant therapy. For at rial fibrillation an d treatment orprevention of deep vein thrombosis . Patients with Palmaz-Fran s tent *: 2 .0 - 3.0 Patients wi th mechanical hear t valve *: 2.5 - 3.5 Patients with flex-stent *: 3.0 - 4.0(*) = sign language interpreter's suggested range Is patient on anticoagulants? No AnticoagulantsTOTAL IRON BINDING PROFILE 2020-07-27 22:24:00 Test Item Value Reference Range Interpretation Comments SERUM IRON (test code = IRON) 26 MCG/DL 50-170 L TOTAL IRON BINDING CAPACITY (test 307 MCG/DL 280-400 N code = TIBC) IRON SATURATION (test code = 8 % 15-50 L FESAT) C REACTIVE [id number] 22:23:00 Test Item Value Reference Range Interpretation Comments C REACTIVE PROTEIN (test code = 9.3 MG/DL < 0.9 H CRP) - CTA CHEST FOR [id number] 21:13:00 [facility] : 1975 Sex: F Patient Name: KAREEN LOTT Unit No: [id number] EXAMS: CPT CODE: [id number] [place] [address] Reason: PE PROTOCOL DICTATION LOCATION: H48 HISTORY: Female, 44 years of age with cough, chest pain, sepsis, cellulitis EXAM: CT ANGIOGRAPHY OF THE CHEST COMPARISON: Chest x-ray performed same day; CT angiography of chest performed 02/11/2020 TECHNIQUE: Helical axial images were obtained from thoracic inlet to upper abdomen with nonionic IV contrast using the CT angiography protocol. Image post processing with MIP and multiplanar reconstruction were performed at the advancedworkstation. One or more of the following dose reduction techniques were used: Automatedexposure control; adjustment of the mA and/or kV according to the patient size; and/or use of iterative reconstruction technique. STATEMENT: Study is technically limited by patient's large body habitus. There is limited opacification of pulmonary arteries. FINDINGS: AORTA: No aneurysm or dissection. PULMONARY ARTERIES: Within normal limits size and only moderately enhanced. No obvious central or subcentral pulmonary artery filling defect. Distal pulmonary arteries not well assessed due to hemodilution. HEART: Heart is enlarged. No significant pericardial effusion. MEDIASTINUM: No pathologically enlarged lymph nodes by CT criteria. Visualized portions of thyroid gland unremarkable. PLEURA: No pleural effusions. LUNGS: Mild dependent atelectasis is noted. No significant emphysema. No focal infiltrate, consolidation or mass. OTHER: Cuts through the upper abdomen are unremarkable. IMPRESSION: 1. No obvious central or subcentral pulmonary embolism. 2. No aortic aneurysm or dissection. 3. Bibasilar atelectasis. No focal infiltrate or effusion. at 2112 Reported and signed by: Anali Carvalho MD CC: Kristi Quezada Technologist: Felicia MOTTA Trscrpt Dt/ (2112)RosaW Orig Print D/T: S: 07/27/2020 (2115) CTDI: DLP: [facility] NAME: KAREEN LOTT [address] PHYS: ALEE - Krist[place] [address] : 1975 AGE: 44 SEX: F LOC: DDelvinDERMS 1 PHONE #: [phone] EXAM DATE: 07/27/2020 STATUS: ADM IN FAX #: RAD NO: DC Dt: PAGE 1 Signed ReportCoronavirus 2019 nCoV [id number] 16:29:00 Test Item Value Reference Range Interpretation Comments Coronavirus 2019 nCoV Negative Negative ID NOW COVID-19 assay Bedside (test code = perform ed on the ID NOW [id number]) Instrument agustina rapid molecular in vi tro diagnostic test utilizing aniso thermal nucleic acid amplification t echnology intendedfor the qualitative det ection of nucleic acid fr om [id number]-DzJ-1 v iral RNA in direct nasal , nasopharyngeal orthroat swabs and nasal , nasopharyngeal or throat swabseluted in viral transport media from individuals who aresuspected of COVID-19 by their health care provider. Resu lts are for the identif ication of SARS-CoV-2 R NA.For Use Under an Em ergency Use Authorizati on (EUA) Only Negative r esults do not preclude SA RS-CoV-2 infection andsh ould not be used as the sole basis for patie nt managementdecis ions. Negative result s must be combined with clinicalobserva tions, patient history , and epidemiological informati on. NT PRO-BRAIN NATRIURETIC [id number] 15:41:00 Test Item Value Reference Range Interpretation Comments NT PRO-BRAIN 50 PG/ML 0-125 N Results of this assay NATRIURETIC PEPTI (test meth od may be falsely code = PROBNP) depressed ore levated if patient is t aking high doses of B iotin. - XR CHEST 1 [id number] 14:37:00 [facility] : 1975 Sex: F Patient Name: KAREEN LOTT Unit No: [id number] EXAMS: CPT CODE: [id number] XR CHEST 1 V 38764 Reason: CODE SEPSIS EXAM: - XR CHEST 1 V CLINICAL HISTORY: CODE SEPSIS COMPARISON: CTA chest 02/11/2020, chest radiograph 02/03/2020. LOCATION: C1 FINDINGS: The trachea appears normal. The mediastinum and cardiac silhouette are within normal limits for size. Minimal streaky airspace opacities are noted in the right lung base. No pleural ef fusions. Limited evaluation of soft tissues and osseous structures is grossly unremarkable. IMPRESSION: Minimal streaky airspace opacities noted in the right lung base. This finding is nonspecific and may represent atelectasis, sequelae of aspiration, or developing infection. at 1437 Reported and signed by: Behzad Lakhani MD CC: Kristi Guadarrama DO; Radha Patrick DO Technologist: Ana Paula Jordan RT; Karri Robertson Students Trscrpt Dt/ (6730)[email or web address] Orig PrintD/T: S: 07/27/2020 (7702) [facility] NAME: ORENPIPPA [address] PHYS: ALEE - [place] [address] : 1975 AGE: 44 SEX: F LOC: KIRBY PHONE #: [phone] EXAM DATE: 07/27/2020 STATUS: REG ER FAX #: RAD NO: DC Dt: PAGE 1 Signed ReportLACTIC [id number] 14:34:00 Test Item Value Reference Range Interpretation Comments LACTIC ACID (test code = LACT) 1.6 MMOL/L 0.5-2.2 N BASIC METABOLIC [id number] 14:34:00 Test Item Value Reference Range Interpretation Comments SODIUM (test code = 138 MMOL/L 133-145 N NA) POTASSIUM (test code = 3.9 MMOL/L 3.6-5.2 N K) CHLORIDE (test code = 101 MMOL/L 100-108 N CL) CARBON DIOXIDE (test 28 MMOL/L 22-32 N code = CO2) GLUCOSE (test code = 112 MG/DL 65-99 H Results of this assay GLU) method may be f alsely depressed orele vated if patient is t aking sulfasalazine. BLOOD UREA NITROGEN 11 MG/DL 6-20 N (test code = BUN) GLOMERULAR FILTRATION 85 58-135 N Report ing units: RATE (test code = GFR) mL/mi n/1.73m\\S\\2 (Modified MDRD Formula) CREATININE (test code 0.74 MG/DL 0.60-1.00 N = CREAT) CALCIUM (test code = 8.9 MG/DL 8.7-10.5 N CA) HEPATIC FUNCTION [id number] 14:34:00 Test Item Value Reference Range Interpretation Comments TOTAL PROTEIN (test 7.6 G/DL 6.4-8.2 N code = PROT) ALBUMIN (test code = 3.6 G/DL 3.4-5.0 N ALB) GLOBULIN (test code = 4.0 G/DL 1.5-3.8 H GLOB) ALBUMIN/GLOBULIN RATIO 0.9 1.1-2.2 L (test code = A/G) BILIRUBIN TOTAL (test 0.6 MG/DL 0.0-1.0 N code = BILT) BILIRUBIN DIRECT (test 0.1 MG/DL 0.0-0.3 N code = BILD) BILIRUBIN INDIRECT 0.5 MG/DL 0.0-0.7 N (test code = BILIND) SGOT/AST (test code = 21 Units/L 15-37 N Result s of this AST) assay method ma y be falsely depress ed orelevated if patient is taki ng sulfasalazine. SGPT/ALT (test code = 40 Units/L 30-65 N Result s of this ALT) assay method ma y be falsely depress ed orelevated if patient is taki ng sulfasalazine. ALKALINE PHOSPHATASE 102 Units/L 50-136 N TOTAL (test code = ALKP) [id number] 14:34:00 Test Item Value Reference Range Interpretation Comments TROPONIN-I (test < 0.04 NG/ML 0.00-0.06 N - The use of serial code = TROPI) sampling and t esting protocol is a recommended pra ctice.- An elevated tro ponin level alone is often not sufficient fo r diagnosis of my ocardial infarction.Resu lts of this assay meth od may be falsely depress ed orelevated if p atient is taking high dos es of Biotin. CBC W/AUTO [id number] 14:22:00 Test Item Value Reference Range Interpretation Comments WHITE BLOOD CELL 24.24 x10 3/uL 4.80-10.80 H Results c alled to (test code = WBC) and read b ack by LYNDSEY KEITH;1339, 07/27/20, D.[facility]. RED BLOOD CELL (test 4.64 x10 6/uL 4.2-5.4 N code = RBC) HEMOGLOBIN (test 12.0 G/DL 12.0-16.0 N code = HGB) HEMATOCRIT (test 39.3 % 37-47 N code = HCT) MEAN CELL VOLUME 84.7 FL 81-99 N (test code = MCV) MEAN CELL HGB (test 25.9 PG 27-31 L code = MCH) MEAN CELL HGB 30.5 G/DL 33-37 L CONCENTRATION (test code = MCHC) RED CELL 19.0 % 11.5-14.5 H DISTRIBUTION WIDTH (test code = RDW) PLATELET COUNT (test 361 x10 3/uL 150-450 N code = PLT) MEAN PLATELET VOLUME 8.8 FL 7.4-10.4 N (test code = MPV) NEUTROPHIL % (test 89.5 % 42-86 H code = NT%) IMMATURE GRANULOCYTE 0.6 % 0.0-2.0 N % (test code = IG%) LYMPHOCYTE % (test 4.3 % 24-44 L code = LY%) MONOCYTE % (test 4.7 % 0.0-4.0 H code = MO%) EOSINOPHIL % (test 0.5 % 0.0-2.7 N code = EO%) BASOPHIL % (test 0.4 % 0.0-0.5 N code = BA%) NUCLEATED RBC % 0.0 % 0.0-0.0 N (test code = NRBC%) NEUTROPHIL # (test 21.71 x10 3/uL 1.8-7.7 H code = NT#) IMMATURE GRANULOCYTE 0.14 x10 3/uL 0.00-0.03 H # (test code = IG#) LYMPHOCYTE # (test 1.04 x10 3/uL 1.0-4.8 N code = LY#) MONOCYTE # (test 1.15 x10 3/uL 0.0-0.8 H code = MO#) EOSINOPHIL # (test 0.11 x10 3/uL 0.0-0.5 N code = EO#) BASOPHIL # (test 0.09 x10 3/uL 0.0-0.2 N code = BA#) NUCLEATED RBC # 0.0 X10 3/uL 0.0-0.2 N (test code = NRBC#) MANUAL DIFF REQUIRED AUTODIFF TECH REVIEW Auto (test code = MDIFF) VERIFIED Differen tial verified by danita h review of smear . HCG SERUM [id number] 14:17:00 Test Item Value Reference Range Interpretation Comments HCG SERUM QUAL NEGATIVE NEGATIVE False negativ es may occur (test code = when levels of hCGare below HCGQL) 10 mIU/ml. When is still suspec ronald, a new specimenshould be obtained after 48 hours and re-tested.If wa iting 48 hours is not me dically advisable,the t est result should be confi rmed using aquantitative h CG assay. - DUP VEIN UNI/[id number] 13:50:00 [facility] : 1975 Sex: F Patient Name: KAREEN LOTT Unit No: [id number] EXAMS: CPT CODE: [id number] DUP VEIN UNI/LTD 38218 Right lower extremity venous Doppler ultrasound 07/27/2020 CLINICAL INDICATION: Pain and swelling COMPARISON: None available LOCATION: W1 TECHNIQUE: Grayscale, color Doppler, spectral wave form analysis of the deep venous system of the right lower extremity was performed. FINDINGS: The common femoral, femoral, and popliteal veins are normally compressible and demonstrate normal spontaneous phasic wave forms. The visualized calf veins are patent. IMPRESSION: No evidence for deep venous thrombus in the right lower extremity. at 1350 Reported and signed by: Hua Schneider MD CC: Kristi Guadarrama DO; Radha Patrick DO Technologist: Lauryn Lee Trnscrbd D/ (5470) [email or web address] Orig Print D/T: S: 07/27/2020 (6423) Probe: [facility] NAME: KAREEN LOTT [address] PHYS: ALEE Guadarrama,[place] [address] : 1975 AGE: 44 SEX: F LOC: YesiDelvinMECCA PHONE #: [phone] EXAM DATE: 07/27/2020 STATUS: REG ER FAX #: RAD NO: Page 1 [facility] W/AUTO [id number] 13:39:00 Test Item Value Reference Range Interpretation Comments WHITE BLOOD CELL (test 24.24 x10 3/uL 4.80-10.80 H Res ults called to code = WBC) and read back b henrique KEITH;1339, 07/27/20, D[facility]. RED BLOOD CELL (test 4.64 x10 6/uL 4.2-5.4 N code = RBC) HEMOGLOBIN (test code = 12.0 G/DL 12.0-16.0 N HGB) HEMATOCRIT (test code = 39.3 % 37-47 N HCT) MEAN CELL VOLUME (test 84.7 FL 81-99 N code = MCV) MEAN CELL HGB (test 25.9 PG 27-31 L code = MCH) MEAN CELL HGB 30.5 G/DL 33-37 L CONCENTRATION (test code = MCHC) RED CELL DISTRIBUTION 19.0 % 11.5-14.5 H WIDTH (test code = RDW) PLATELET COUNT (test 361 x10 3/uL 150-450 N code = PLT) MEAN PLATELET VOLUME 8.8 FL 7.4-10.4 N (test code = MPV) NEUTROPHIL % (test code 89.5 % 42-86 H = NT%) IMMATURE GRANULOCYTE % 0.6 % 0.0-2.0 N (test code = IG%) LYMPHOCYTE % (test code 4.3 % 24-44 L = LY%) MONOCYTE % (test code = 4.7 % 0.0-4.0 H MO%) EOSINOPHIL % (test code 0.5 % 0.0-2.7 N = EO%) BASOPHIL % (test code = 0.4 % 0.0-0.5 N BA%) NUCLEATED RBC % (test 0.0 % 0.0-0.0 N code = NRBC%) NEUTROPHIL # (test code 21.71 x10 3/uL 1.8-7.7 H = NT#) IMMATURE GRANULOCYTE # 0.14 x10 3/uL 0.00-0.03 H (test code = IG#) LYMPHOCYTE # (test code 1.04 x10 3/uL 1.0-4.8 N = LY#) MONOCYTE # (test code = 1.15 x10 3/uL 0.0-0.8 H MO#) EOSINOPHIL # (test code 0.11 x10 3/uL 0.0-0.5 N = EO#) BASOPHIL # (test code = 0.09 x10 3/uL 0.0-0.2 N BA#) NUCLEATED RBC # (test 0.0 X10 3/uL 0.0-0.2 N code = NRBC#) - CTA CHEST FOR [id number] 23:52:00 [facility] : 1975 Sex: F Patient Name: KAREEN LOTT Unit No: [id number] EXAMS: CPT CODE: [id number] [place] [address] Reason: right sided chest pain and short PROCEDURE INFORMATION: Exam: CT Angiography Chest With Contrast Exam date and time: 02/11/2020 11:20 PM Age: 44 years old Clinical indication: Other: Right sided chest pain and shortness of breath TECHNIQUE: Imaging protocol: Computed tomographic angiography of the chest with intravenous contrast. 3D rendering (Not supervised by radiologist): MIP and/or 3D reconstructed imageswere created by the technologist. Radiation optimization: All CT scans at this facility use at least one of these dose optimization techniques: automated exposure control; mA and/or kV adjustment per patient size (includes targeted exams where dose is matched to clinical indication); or iterative reconstruction. Contrast material: ISOVUE 370; Contrast volume:60 ml; Contrast route: INTRAVENOUS (IV); COMPARISON: CT CHEST W/O CONTRAST 08/30/2018 9:18 AM FINDINGS: Pulmonary arteries: Normal. No pulmonary emboli. Aorta:Unremarkable. No aortic aneurysm. No aortic dissection. Lungs: There is bibasilar atelectasis. There is mild interstitial coarsening. No consolidation. No masses. Pleuralspace: Unremarkable. No pneumothorax. No pleural effusion. Heart: The heart is enlarged. No pericardial effusion. Lymph nodes: Unremarkable. No enlarged lymph nodes. Bones/joints: Unremarkable. No acute fracture. Soft tissues: Unremarkable. IMPRESSION: No acute findings. INTERNAL CODING PURPOSES ONLY RESULT CODE: CVR at 2352 Reported and signed by: Sam Garibay MD CC: Fernando Gr MD; Danilo Patrick DO Technologist: Tiffany Kenny RT; Roxanna Perrin RT PRN Trscrpt Dt/ (2351)[email or web address].[email or web address] Orig Print D/T: S: 02/11/2020 (235) CTDI: DLP: [facility] NAME: KAREEN LOTT [address] PHYS: [place] [address] : 1975 AGE: 44 SEX: F LOC: ROSMERY PHONE #: [phone] EXAM DATE: 02/11/2020 STATUS: REG ER FAX #: RAD NO: DC Dt: PAGE 1 Signed Report- US ABDOMEN [id number] 19:21:00 [facility] : 1975 Sex: F Patient Name: KAREEN LOTT Unit No: [id number] EXAMS: CPT CODE: [id number] US ABDOMEN LTD 52484 INDICATION: Right upper quadrant abdominal pain COMPARISON: None TECHNIQUE: Multiple images from a real-time, duplex and color Doppler ultrasound of the gallbladder and biliary system are obtained. FINDINGS: Gallbladder wall is normal measuring 2 mm. There is a single large gallstone in the gallbladder neck measuring 2.7 cm in diameter. No sludge, polyps or abnormal tenderness over the gallbladder fossa is noted on real-time exam. Common bile duct is nondilated measuring 3 mm. IMPRESSION: Cholelithiasis. at 192 Reported and signed by: Fernando Solorio MD CC: Danilo Patrick DO Technologist: kSyla Delatorre Trnscrbd D/ (1920) [email or web address] Orig Print D/T: S: 02/11/2020 (1923) Probe: [facility] NAME: KAREEN LOTT [address] PHYS: Danilo Lanza [facility],[place] [address] : 1975 AGE: 44 SEX: F LOC: ROSMERY PHONE #: [phone] EXAM DATE: 02/11/2020TATUS: JUS ER FAX #: RAD NO: Page 1 Signed ReportCOMPREHENSIVE METABOLIC [id number] 14:49:00 Test Item Value Reference Range Interpretation Comments SODIUM (test code = 137 MMOL/L 133-145 N NA) POTASSIUM (test code = 4.4 MMOL/L 3.6-5.2 N K) CHLORIDE (test code = 102 MMOL/L 100-108 N CL) CARBON DIOXIDE (test 24 MMOL/L 22-32 N code = CO2) GLUCOSE (test code = 121 MG/DL 65-99 H Results of this assay GLU) method may be f alsely depressed orele vated if patient is t aking sulfasalazine. BLOOD UREA NITROGEN 11 MG/DL 6-20 N (test code = BUN) GLOMERULAR FILTRATION 101 58-135 N Report ing units: RATE (test code = GFR) mL/mi n/1.73m\\S\\2 (Modified MDRD Formula) CREATININE (test code 0.64 MG/DL 0.60-1.00 N = CREAT) TOTAL PROTEIN (test 7.9 G/DL 6.4-8.2 N code = PROT) ALBUMIN (test code = 3.4 G/DL 3.4-5.0 N ALB) GLOBULIN (test code = 4.5 G/DL 1.5-3.8 H GLOB) ALBUMIN/GLOBULIN RATIO 0.8 1.1-2.2 L (test code = A/G) CALCIUM (test code = 9.4 MG/DL 8.7-10.5 N CA) BILIRUBIN TOTAL (test 0.4 MG/DL 0.0-1.0 N code = BILT) SGOT/AST (test code = 14 Units/L 15-37 L Result s of this assay AST) method may be f alsely depressed orele vated if patient is t aking sulfasalazine. SGPT/ALT (test code = 32 Units/L 30-65 N Result s of this assay ALT) method may be f alsely depressed orele vated if patient is t aking sulfasalazine. ALKALINE PHOSPHATASE 95 Units/L 50-136 N TOTAL (test code = ALKP) [id number] 14:49:00 Test Item Value Reference Range Interpretation Comments LIPASE (test code = LIP) 238 Units/L 73-393 N UA RFLX [id number] 14:45:00 Test Item Value Reference Range Interpretation Comments UA COLOR (test code = COLU) YELLOW YELLOW UA APPEARANCE (test code = CLEAR CLEAR APPU) UA GLUCOSE DIPSTICK (test NEGATIVE mg/dL NEGATIVE code = DGLUU) UA BILIRUBIN DIPSTICK (test NEGATIVE NEGATIVE code = BILU) UA KETONE DIPSTICK (test code NEGATIVE mg/dL NEGATIVE = KETU) UA SPECIFIC GRAVITY (test 1.015 1.001-1.035 N code = SGU) UA BLOOD DIPSTICK (test code NEGATIVE NEGATIVE = ЮЛИЯ) UA PH DIPSTICK (test code = 9.0 5.5-7.0 H EDY) UA PROTEIN DIPSTICK (test NEGATIVE mg/dL NEGATIVE code = PROU) UA UROBILINOGEN DIPSTICK NORMAL mg/dL NORMAL (test code = URO) UA NITRITE DIPSTICK (test NEGATIVE NEGATIVE code = BLANQUITA) UA LEUKOCYTE ESTERASE TRACE NEGATIVE A DIPSTICK (test code = LEUU) UA COMMENT (test code = COMU) VOLUME 10-12 ML URINE SPECIMEN DESCRIPTION Clean Catch (test code = UASPEC) UA [id number] 14:45:00 Test Item Value Reference Range Interpretation Comments UA WBC (test code = WBCU) < 10 #/hpf <10 UA RBC (test code = RBCU) None Seen #/hpf NONE SEEN UA BACTERIA (test code = RARE #/hpf NONE SEEN BACU) UA SQUAMOUS CELLS (test code 20 - 40 #/lpf <100 = SQU) UA CULTURE NEEDED? (test Criteria not met code = UACULT) CBC W/AUTO [id number] 14:43:00 Test Item Value Reference Range Interpretation Comments WHITE BLOOD CELL (test 15.23 x10 3/uL 4.80-10.80 H Res ults called to code = WBC) and read back Aquiles RUTLEDGE RN;1430, 02/11/20, [id number]. RED BLOOD CELL (test 4.46 x10 6/uL 4.2-5.4 N code = RBC) HEMOGLOBIN (test code = 9.3 G/DL 12.0-16.0 L HGB) HEMATOCRIT (test code = 32.8 % 37-47 L HCT) MEAN CELL VOLUME (test 73.5 FL 81-99 L code = MCV) MEAN CELL HGB (test 20.9 PG 27-31 L code = MCH) MEAN CELL HGB 28.4 G/DL 33-37 L CONCENTRATION (test code = MCHC) RED CELL DISTRIBUTION 17.7 % 11.5-14.5 H WIDTH (test code = RDW) PLATELET COUNT (test 417 x10 3/uL 150-450 N code = PLT) MEAN PLATELET VOLUME 8.7 FL 7.4-10.4 N (test code = MPV) NEUTROPHIL % (test code 83.2 % 42-86 N = NT%) LYMPHOCYTE % (test code 13.3 % 24-44 L = LY%) MONOCYTE % (test code = 3.0 % 0.0-4.0 N MO%) EOSINOPHIL % (test code 0.3 % 0.0-2.7 N = EO%) BASOPHIL % (test code = 0.2 % 0.0-0.5 N BA%) NEUTROPHIL # (test code 12.68 x10 3/uL 1.8-7.7 H = NT#) LYMPHOCYTE # (test code 2.02 x10 3/uL 1.0-4.8 N = LY#) MONOCYTE # (test code = 0.45 x10 3/uL 0.0-0.8 N MO#) EOSINOPHIL # (test code 0.05 x10 3/uL 0.0-0.5 N = EO#) BASOPHIL # (test code = 0.03 x10 3/uL 0.0-0.2 N BA#) MANUAL DIFF REQUIRED SCAN PLT_RBC TECH REVIEW (test code = MDIFF) RBC [id number] 14:43:00 Test Item Value Reference Range Interpretation Comments RBC MORPHOLOGY COMMENT (test code See Comment = RBCM) POLYCHROMASIA (test code = POLC) 2+ HYPOCHROMIA (test code = HYPO) 1+ ANISOCYTOSIS (test code = ANISO) 1+ MICROCYTOSIS (test code = MICR) 1+ PLATELET [id number] 14:43:00 Test Item Value Reference Range Interpretation Comments PLATELET ESTIMATE (test code = PLTEST) Inc ADEQ A PLATELET [id number] 14:43:00 Test Item Value Reference Range Interpretation Comments PLATELET MORPHOLOGY (test code = Normal Normal PLTMORPH) LACTIC [id number] 14:43:00 Test Item Value Reference Range Interpretation Comments LACTIC ACID (test code = LACT) 1.4 MMOL/L 0.5-2.2 N CBC W/AUTO [id number] 14:39:00 Test Item Value Reference Range Interpretation Comments WHITE BLOOD CELL (test 15.23 x10 3/uL 4.80-10.80 H Res ults called to code = WBC) and read back Aquiles RUTLEDGE RN;1430, 02/11/20, [id number]. RED BLOOD CELL (test 4.46 x10 6/uL 4.2-5.4 N code = RBC) HEMOGLOBIN (test code = 9.3 G/DL 12.0-16.0 L HGB) HEMATOCRIT (test code = 32.8 % 37-47 L HCT) MEAN CELL VOLUME (test 73.5 FL 81-99 L code = MCV) MEAN CELL HGB (test 20.9 PG 27-31 L code = MCH) MEAN CELL HGB 28.4 G/DL 33-37 L CONCENTRATION (test code = MCHC) RED CELL DISTRIBUTION 17.7 % 11.5-14.5 H WIDTH (test code = RDW) PLATELET COUNT (test 417 x10 3/uL 150-450 N code = PLT) MEAN PLATELET VOLUME 8.7 FL 7.4-10.4 N (test code = MPV) NEUTROPHIL % (test code % 42-86 N = NT%) LYMPHOCYTE % (test code % 24-44 L = LY%) MONOCYTE % (test code = % 0.0-4.0 N MO%) EOSINOPHIL % (test code % 0.0-2.7 N = EO%) BASOPHIL % (test code = % 0.0-0.5 N BA%) NEUTROPHIL # (test code x10 3/uL 1.8-7.7 H = NT#) LYMPHOCYTE # (test code x10 3/uL 1.0-4.8 N = LY#) MONOCYTE # (test code = x10 3/uL 0.0-0.8 N MO#) EOSINOPHIL # (test code x10 3/uL 0.0-0.5 N = EO#) BASOPHIL # (test code = x10 3/uL 0.0-0.2 N BA#) MANUAL DIFF REQUIRED SCAN PLT_RBC TECH REVIEW (test code = MDIFF) RBC [id number] 14:39:00 Test Item Value Reference Range Interpretation Comments RBC MORPHOLOGY COMMENT (test code = RBCM) PLATELET [id number] 14:39:00 Test Item Value Reference Range Interpretation Comments PLATELET ESTIMATE (test code = PLTEST) ADEQ CBC W/AUTO [id number] 14:39:00 Test Item Value Reference Range Interpretation Comments WHITE BLOOD CELL (test 15.23 x10 3/uL 4.80-10.80 H Res ults called to code = WBC) and read back Aquiles RUTLEDGE RN;1430, 02/11/20, [id number]. RED BLOOD CELL (test 4.46 x10 6/uL 4.2-5.4 N code = RBC) HEMOGLOBIN (test code = 9.3 G/DL 12.0-16.0 L HGB) HEMATOCRIT (test code = 32.8 % 37-47 L HCT) MEAN CELL VOLUME (test 73.5 FL 81-99 L code = MCV) MEAN CELL HGB (test 20.9 PG 27-31 L code = MCH) MEAN CELL HGB 28.4 G/DL 33-37 L CONCENTRATION (test code = MCHC) RED CELL DISTRIBUTION 17.7 % 11.5-14.5 H WIDTH (test code = RDW) PLATELET COUNT (test 417 x10 3/uL 150-450 N code = PLT) MEAN PLATELET VOLUME 8.7 FL 7.4-10.4 N (test code = MPV) NEUTROPHIL % (test code % 42-86 N = NT%) LYMPHOCYTE % (test code % 24-44 L = LY%) MONOCYTE % (test code = % 0.0-4.0 N MO%) EOSINOPHIL % (test code % 0.0-2.7 N = EO%) BASOPHIL % (test code = % 0.0-0.5 N BA%) NEUTROPHIL # (test code x10 3/uL 1.8-7.7 H = NT#) LYMPHOCYTE # (test code x10 3/uL 1.0-4.8 N = LY#) MONOCYTE # (test code = x10 3/uL 0.0-0.8 N MO#) EOSINOPHIL # (test code x10 3/uL 0.0-0.5 N = EO#) BASOPHIL # (test code = x10 3/uL 0.0-0.2 N BA#) MANUAL DIFF REQUIRED SCAN PLT_RBC TECH REVIEW (test code = MDIFF) RBC [id number] 14:39:00 Test Item Value Reference Range Interpretation Comments RBC MORPHOLOGY COMMENT (test code = RBCM) PLATELET [id number] 14:39:00 Test Item Value Reference Range Interpretation Comments PLATELET ESTIMATE (test code = PLTEST) ADEQ UA RFLX [id number] 14:38:00 Test Item Value Reference Range Interpretation Comments UA COLOR (test code = COLU) YELLOW YELLOW UA APPEARANCE (test code = CLEAR CLEAR APPU) UA GLUCOSE DIPSTICK (test NEGATIVE mg/dL NEGATIVE code = DGLUU) UA BILIRUBIN DIPSTICK (test NEGATIVE NEGATIVE code = BILU) UA KETONE DIPSTICK (test code NEGATIVE mg/dL NEGATIVE = KETU) UA SPECIFIC GRAVITY (test 1.015 1.001-1.035 N code = SGU) UA BLOOD DIPSTICK (test code NEGATIVE NEGATIVE = ЮЛИЯ) UA PH DIPSTICK (test code = 9.0 5.5-7.0 H EDY) UA PROTEIN DIPSTICK (test NEGATIVE mg/dL NEGATIVE code = PROU) UA UROBILINOGEN DIPSTICK NORMAL mg/dL NORMAL (test code = URO) UA NITRITE DIPSTICK (test NEGATIVE NEGATIVE code = BLANQUITA) UA LEUKOCYTE ESTERASE TRACE NEGATIVE A DIPSTICK (test code = LEUU) UA COMMENT (test code = COMU) VOLUME 10-12 ML URINE SPECIMEN DESCRIPTION Clean Catch (test code = UASPEC) UA [id number] 14:38:00 Test Item Value Reference Range Interpretation Comments UA WBC (test code = WBCU) #/hpf <10 UA RBC (test code = RBCU) #/hpf NONE SEEN UA SQUAMOUS CELLS (test code = SQU) #/lpf <100 UA CULTURE NEEDED? (test code = UACULT) COMPREHENSIVE METABOLIC [id number] 14:38:00 Test Item Value Reference Range Interpretation Comments SODIUM (test code = 137 MMOL/L 133-145 N NA) POTASSIUM (test code = 4.4 MMOL/L 3.6-5.2 N K) CHLORIDE (test code = 102 MMOL/L 100-108 N CL) CARBON DIOXIDE (test 24 MMOL/L 22-32 N code = CO2) GLUCOSE (test code = 121 MG/DL 65-99 H Results of this assay GLU) method may be f alsely depressed orele vated if patient is t aking sulfasalazine. BLOOD UREA NITROGEN 11 MG/DL 6-20 N (test code = BUN) GLOMERULAR FILTRATION 101 58-135 N Report ing units: RATE (test code = GFR) mL/mi n/1.73m\\S\\2 (Modified MDRD Formula) CREATININE (test code 0.64 MG/DL 0.60-1.00 N = CREAT) TOTAL PROTEIN (test G/DL 6.4-8.2 code = PROT) ALBUMIN (test code = G/DL 3.4-5.0 ALB) GLOBULIN (test code = G/DL 1.5-3.8 GLOB) ALBUMIN/GLOBULIN RATIO 1.1-2.2 (test code = A/G) CALCIUM (test code = 9.4 MG/DL 8.7-10.5 N CA) BILIRUBIN TOTAL (test MG/DL 0.0-1.0 code = BILT) SGOT/AST (test code = Units/L 15-37 AST) SGPT/ALT (test code = Units/L 30-65 ALT) ALKALINE PHOSPHATASE Units/L 50-136 TOTAL (test code = ALKP) [id number] 14:38:00 Test Item Value Reference Range Interpretation Comments LIPASE (test code = LIP) Units/L 73-393 UA RFLX [id number] 14:38:00 Test Item Value Reference Range Interpretation Comments UA COLOR (test code = COLU) YELLOW YELLOW UA APPEARANCE (test code = CLEAR CLEAR APPU) UA GLUCOSE DIPSTICK (test NEGATIVE mg/dL NEGATIVE code = DGLUU) UA BILIRUBIN DIPSTICK (test NEGATIVE NEGATIVE code = BILU) UA KETONE DIPSTICK (test code NEGATIVE mg/dL NEGATIVE = KETU) UA SPECIFIC GRAVITY (test 1.015 1.001-1.035 N code = SGU) UA BLOOD DIPSTICK (test code NEGATIVE NEGATIVE = ЮЛИЯ) UA PH DIPSTICK (test code = 9.0 5.5-7.0 H EDY) UA PROTEIN DIPSTICK (test NEGATIVE mg/dL NEGATIVE code = PROU) UA UROBILINOGEN DIPSTICK NORMAL mg/dL NORMAL (test code = URO) UA NITRITE DIPSTICK (test NEGATIVE NEGATIVE code = BLANQUITA) UA LEUKOCYTE ESTERASE TRACE NEGATIVE A DIPSTICK (test code = LEUU) UA COMMENT (test code = COMU) VOLUME 10-12 ML URINE SPECIMEN DESCRIPTION Clean Catch (test code = UASPEC) UA [id number] 14:38:00 Test Item Value Reference Range Interpretation Comments UA WBC (test code = WBCU) #/hpf <10 UA RBC (test code = RBCU) #/hpf NONE SEEN UA SQUAMOUS CELLS (test code = SQU) #/lpf <100 UA CULTURE NEEDED? (test code = UACULT) UR HCG [id number] 14:37:00 Test Item Value Reference Range Interpretation Comments UR HCG QUAL (test NEGATIVE NEGATIVE False nega tives may occur code = HCGQLU) when levels o f hCGare below 20 mIU/ml. When is still suspec ronald, a new specimenshould be obtained after 48 hours and re-tested.If wa iting 48 hours is not me dically advisable,the t est result should be confi rmed using aquantitative h CG assay. CBC W/AUTO [id number] 14:30:00 Test Item Value Reference Range Interpretation Comments WHITE BLOOD CELL (test 15.23 x10 3/uL 4.80-10.80 H Res ults called to code = WBC) and read back Aquiles RUTLEDGE RN;1430, 02/11/20, [id number]. RED BLOOD CELL (test 4.46 x10 6/uL 4.2-5.4 N code = RBC) HEMOGLOBIN (test code = 9.3 G/DL 12.0-16.0 L HGB) HEMATOCRIT (test code = 32.8 % 37-47 L HCT) MEAN CELL VOLUME (test 73.5 FL 81-99 L code = MCV) MEAN CELL HGB (test 20.9 PG 27-31 L code = MCH) MEAN CELL HGB 28.4 G/DL 33-37 L CONCENTRATION (test code = MCHC) RED CELL DISTRIBUTION 17.7 % 11.5-14.5 H WIDTH (test code = RDW) PLATELET COUNT (test 417 x10 3/uL 150-450 N code = PLT) MEAN PLATELET VOLUME 8.7 FL 7.4-10.4 N (test code = MPV) NEUTROPHIL % (test code % 42-86 N = NT%) LYMPHOCYTE % (test code % 24-44 L = LY%) MONOCYTE % (test code = % 0.0-4.0 N MO%) EOSINOPHIL % (test code % 0.0-2.7 N = EO%) BASOPHIL % (test code = % 0.0-0.5 N BA%) NEUTROPHIL # (test code x10 3/uL 1.8-7.7 H = NT#) LYMPHOCYTE # (test code x10 3/uL 1.0-4.8 N = LY#) MONOCYTE # (test code = x10 3/uL 0.0-0.8 N MO#) EOSINOPHIL # (test code x10 3/uL 0.0-0.5 N = EO#) BASOPHIL # (test code = x10 3/uL 0.0-0.2 N BA#) - US ABDOMEN [id number] 18:10:00 [facility] 1975 Sex: F Patient Name: KAREEN LOTT Unit No: [id number] EXAMS: CPT CODE: [id number] US ABDOMEN LTD 29118 HISTORY: 44 years old Female withRUQ PAIN TECHNIQUE: Gonzales-scale and color and spectral Doppler ultrasound imaging of the abdomen was performed. COMPARISON: None. FINDINGS: Image quality: Degraded by body habitus and/or bowel gas artifact. LIVER: Partially imaged and is unremarkable. B ILIARY DUCTAL SYSTEM: Dilation: No intra- or extrahepatic biliary ductal dilation. Common Bile Duct: Measures 5 mm in greatest diameter. GALLBLADDER: Size: Normal. Gallbladder Wall: No gallbladder wall thickening. Cholelithiasis/Sludge: Wall echo shadowsign suggestive of a gallbladder full of gallstones. Pericholecystic Fluid: None identified. PERITONEUM: No free fluid is identified within the provided images. IMPRESSION: Cholelithiasis without sonographic evidence of cholecystitis. at 1810 Reported and signed by: Danelle Thrasher MD CC: Fely Watkins SAP ARIBA CONSULTANT; Cameron Pollard MD; Radha Ptarick DO Technologist: Sandee Garcia Trnscrbd D/ (1809) t.SDR.RKG Orig Print D/T: S: 02/03/2020 (1812) Probe: [facility] NAME: KAREEN LOTT [address] [facility] PHYS: [email or web address] [facility]ameron [place] [phone] : 1975 AGE: 44 SEX: F LOC: KIRBY PHONE #: [phone] EXAM DATE: 02/03/2020 STATUS: REG ER FAX #: RAD NO: Page 1 Signed Report- XR CHEST 1 [id number] 14:45:00 [facility] 1975 Sex: F Patient Name: KAREEN LOTT Unit No: [id number] EXAMS: CPT CODE: [id number] XR CHEST 1 V 65636 Reason: DYSPNEA, HX CHF, CF Indication: Dyspnea FINDINGS: Single view of the chest shows normal heart size and pulmonaryvasculature. The lungs are clear bilaterally. There is no focal infiltrate, pleural effusion or pneumothorax. IMPRESSION: No acute cardiopulmonary findings at 1444 Reported and signed by:Fernando Myles MD CC: Fely Watkins SAP ARIBA CONSULTANT; Cameron Ochoa MD; Radha Patrick DO Technologist: Flaco Guadarrama RT Trscrpt Dt/ (2654)t. ADAL.DKW Orig Print D/T: S: 02/03/2020 (0311) [facility] NAME: KAREEN LOTT [address] PHYS: [email or web address] - Gabriela,[place] [address] : 1975 AGE: 44 SEX: F LOC: KIRBY PHONE #: [phone] EXAM DATE: 02/03/2020 STATUS: REG ER FAX #: RAD NO: DC Dt: PAGE 1 Signed ReportCOMPREHENSIVE METABOLIC [id number] 14:28:00 Test Item Value Reference Range Interpretation Comments SODIUM (test code = 142 MMOL/L 133-145 N NA) POTASSIUM (test code = 4.1 MMOL/L 3.6-5.2 N K) CHLORIDE (test code = 106 MMOL/L 100-108 N CL) CARBON DIOXIDE (test 26 MMOL/L 22-32 N code = CO2) GLUCOSE (test code = 97 MG/DL 65-99 N Results of this assay GLU) method may be f alsely depressed orele vated if patient is t aking sulfasalazine. BLOOD UREA NITROGEN 10 MG/DL 6-20 N (test code = BUN) GLOMERULAR FILTRATION 101 58-135 N Report ing units: RATE (test code = GFR) mL/mi n/1.73m\\S\\2 (Modified MDRD Formula) CREATININE (test code 0.64 MG/DL 0.60-1.00 N = CREAT) TOTAL PROTEIN (test 7.1 G/DL 6.4-8.2 N code = PROT) ALBUMIN (test code = 3.1 G/DL 3.4-5.0 L ALB) GLOBULIN (test code = 4.0 G/DL 1.5-3.8 H GLOB) ALBUMIN/GLOBULIN RATIO 0.8 1.1-2.2 L (test code = A/G) CALCIUM (test code = 8.3 MG/DL 8.7-10.5 L CA) BILIRUBIN TOTAL (test 0.3 MG/DL 0.0-1.0 N code = BILT) SGOT/AST (test code = 20 Units/L 15-37 N Result s of this assay AST) method may be f alsely depressed orele vated if patient is t aking sulfasalazine. SGPT/ALT (test code = 44 Units/L 30-65 N Result s of this assay ALT) method may be f alsely depressed orele vated if patient is t aking sulfasalazine. ALKALINE PHOSPHATASE 97 Units/L 50-136 N TOTAL (test code = ALKP) [id number] 14:28:00 Test Item Value Reference Range Interpretation Comments LIPASE (test code = LIP) 154 Units/L 73-393 N [id number] 14:28:00 Test Item Value Reference Range Interpretation Comments MAGNESIUM (test code = MAG) 2.0 MG/DL 1.8-2.4 N NT PRO-BRAIN NATRIURETIC [id number] 14:28:00 Test Item Value Reference Range Interpretation Comments NT PRO-BRAIN 332 PG/ML 0-125 H Results of this assay NATRIURETIC PEPTI (test meth od may be falsely code = PROBNP) depressed ore levated if patient is t aking high doses of B iotin. [id number] 14:28:00 Test Item Value Reference Range Interpretation Comments TROPONIN-I (test < 0.04 NG/ML 0.00-0.06 N - The use of serial code = TROPI) sampling and t esting protocol is a recommended pra ctice.- An elevated tro ponin level alone is often not sufficient fo r diagnosis of my ocardial infarction.Resu lts of this assay meth od may be falsely depress ed orelevated if p atient is taking high dos es of Biotin. COMPREHENSIVE METABOLIC [id number] 14:27:00 Test Item Value Reference Range Interpretation Comments SODIUM (test code = 142 MMOL/L 133-145 N NA) POTASSIUM (test code = 4.1 MMOL/L 3.6-5.2 N K) CHLORIDE (test code = 106 MMOL/L 100-108 N CL) CARBON DIOXIDE (test 26 MMOL/L 22-32 N code = CO2) GLUCOSE (test code = 97 MG/DL 65-99 N Results of this assay GLU) method may be f alsely depressed orele vated if patient is t aking sulfasalazine. BLOOD UREA NITROGEN 10 MG/DL 6-20 N (test code = BUN) GLOMERULAR FILTRATION 101 58-135 N Report ing units: RATE (test code = GFR) mL/mi n/1.73m\\S\\2 (Modified MDRD Formula) CREATININE (test code 0.64 MG/DL 0.60-1.00 N = CREAT) TOTAL PROTEIN (test G/DL 6.4-8.2 code = PROT) ALBUMIN (test code = G/DL 3.4-5.0 ALB) GLOBULIN (test code = G/DL 1.5-3.8 GLOB) ALBUMIN/GLOBULIN RATIO 1.1-2.2 (test code = A/G) CALCIUM (test code = 8.3 MG/DL 8.7-10.5 L CA) BILIRUBIN TOTAL (test MG/DL 0.0-1.0 code = BILT) SGOT/AST (test code = Units/L 15-37 AST) SGPT/ALT (test code = Units/L 30-65 ALT) ALKALINE PHOSPHATASE Units/L 50-136 TOTAL (test code = ALKP) [id number] 14:27:00 Test Item Value Reference Range Interpretation Comments LIPASE (test code = LIP) Units/L 73-393 [id number] 14:27:00 Test Item Value Reference Range Interpretation Comments MAGNESIUM (test code = MAG) MG/DL 1.8-2.4 NT PRO-BRAIN NATRIURETIC [id number] 14:27:00 Test Item Value Reference Range Interpretation Comments NT PRO-BRAIN NATRIURETIC PEPTI (test PG/ML 0-125 code = PROBNP) [id number] 14:27:00 Test Item Value Reference Range Interpretation Comments TROPONIN-I (test < 0.04 NG/ML 0.00-0.06 N - The use of serial code = TROPI) sampling and t esting protocol is a recommended pra ctice.- An elevated tro ponin level alone is often not sufficient fo r diagnosis of my ocardial infarction.Resu lts of this assay meth od may be falsely depress ed orelevated if p atient is taking high dos es of Biotin. HCG SERUM [id number] 14:16:00 Test Item Value Reference Range Interpretation Comments HCG SERUM QUAL NEGATIVE NEGATIVE False negativ es may occur (test code = when levels of hCGare below HCGQL) 10 mIU/ml. When is still suspec ronald, a new specimenshould be obtained after 48 hours and re-tested.If wa iting 48 hours is not me dically advisable,the t est result should be confi rmed using aquantitative h CG assay. CBC W/AUTO [id number] 14:04:00 Test Item Value Reference Range Interpretation Comments WHITE BLOOD CELL (test code = 11.55 x10 3/uL 4.80-10.80 H WBC) RED BLOOD CELL (test code = 4.13 x10 6/uL 4.2-5.4 L RBC) HEMOGLOBIN (test code = HGB) 8.8 G/DL 12.0-16.0 L HEMATOCRIT (test code = HCT) 31.6 % 37-47 L MEAN CELL VOLUME (test code = 76.5 FL 81-99 L MCV) MEAN CELL HGB (test code = 21.3 PG 27-31 L MCH) MEAN CELL HGB CONCENTRATION 27.8 G/DL 33-37 L (test code = MCHC) RED CELL DISTRIBUTION WIDTH 17.3 % 11.5-14.5 H (test code = RDW) PLATELET COUNT (test code = 368 x10 3/uL 150-450 N PLT) MEAN PLATELET VOLUME (test 8.4 FL 7.4-10.4 N code = MPV) NEUTROPHIL % (test code = NT%) 68.7 % 42-86 N IMMATURE GRANULOCYTE % (test 1.0 % 0.0-2.0 N code = IG%) LYMPHOCYTE % (test code = LY%) 19.6 % 24-44 L MONOCYTE % (test code = MO%) 8.1 % 0.0-4.0 H EOSINOPHIL % (test code = EO%) 2.3 % 0.0-2.7 N BASOPHIL % (test code = BA%) 0.3 % 0.0-0.5 N NUCLEATED RBC % (test code = 0.3 % 0.0-0.0 H NRBC%) NEUTROPHIL # (test code = NT#) 7.94 x10 3/uL 1.8-7.7 H IMMATURE GRANULOCYTE # (test 0.11 x10 3/uL 0.00-0.03 H code = IG#) LYMPHOCYTE # (test code = LY#) 2.26 x10 3/uL 1.0-4.8 N MONOCYTE # (test code = MO#) 0.94 x10 3/uL 0.0-0.8 H EOSINOPHIL # (test code = EO#) 0.26 x10 3/uL 0.0-0.5 N BASOPHIL # (test code = BA#) 0.04 x10 3/uL 0.0-0.2 N NUCLEATED RBC # (test code = 0.0 X10 3/uL 0.0-0.2 N NRBC#) BASIC METABOLIC [id number] 12:42:00 Test Item Value Reference Range Interpretation Comments SODIUM (test code = 141 MMOL/L 133-145 N NA) POTASSIUM (test code = 4.1 MMOL/L 3.6-5.2 N K) CHLORIDE (test code = 105 MMOL/L 100-108 N CL) CARBON DIOXIDE (test 23 MMOL/L 22-32 N code = CO2) GLUCOSE (test code = 90 MG/DL 65-99 N Results of this assay GLU) method may be f alsely depressed orele vated if patient is t aking sulfasalazine. BLOOD UREA NITROGEN 10 MG/DL 6-20 N (test code = BUN) GLOMERULAR FILTRATION 94 58-135 N Report ing units: RATE (test code = GFR) mL/mi n/1.73m\\S\\2 (Modified MDRD Formula) CREATININE (test code 0.68 MG/DL 0.60-1.00 N = CREAT) CALCIUM (test code = 8.7 MG/DL 8.7-10.5 N CA) CBC W/AUTO [id number] 12:40:00 Test Item Value Reference Range Interpretation Comments WHITE BLOOD CELL 9.28 x10 3/uL 4.80-10.80 N (test code = WBC) RED BLOOD CELL (test 4.05 x10 6/uL 4.2-5.4 L code = RBC) HEMOGLOBIN (test 8.7 G/DL 12.0-16.0 L code = HGB) HEMATOCRIT (test 30.4 % 37-47 L code = HCT) MEAN CELL VOLUME 75.1 FL 81-99 L (test code = MCV) MEAN CELL HGB (test 21.5 PG 27-31 L code = MCH) MEAN CELL HGB 28.6 G/DL 33-37 L CONCENTRATION (test code = MCHC) RED CELL 17.7 % 11.5-14.5 H DISTRIBUTION WIDTH (test code = RDW) PLATELET COUNT (test 283 x10 3/uL 150-450 N code = PLT) MEAN PLATELET VOLUME 9.5 FL 7.4-10.4 N (test code = MPV) NEUTROPHIL % (test 58.3 % 42-86 N code = NT%) LYMPHOCYTE % (test 28.4 % 24-44 N code = LY%) MONOCYTE % (test 9.7 % 0.0-4.0 H code = MO%) EOSINOPHIL % (test 3.4 % 0.0-2.7 H code = EO%) BASOPHIL % (test 0.2 % 0.0-0.5 N code = BA%) NEUTROPHIL # (test 5.40 x10 3/uL 1.8-7.7 N code = NT#) LYMPHOCYTE # (test 2.64 x10 3/uL 1.0-4.8 N code = LY#) MONOCYTE # (test 0.90 x10 3/uL 0.0-0.8 H code = MO#) EOSINOPHIL # (test 0.32 x10 3/uL 0.0-0.5 N code = EO#) BASOPHIL # (test 0.02 x10 3/uL 0.0-0.2 N code = BA#) MANUAL DIFF REQUIRED AUTODIFF TECH REVIEW Auto (test code = MDIFF) VERIFIED Differen tial verified by danita h review of smear . CBC W/AUTO [id number] 12:38:00 Test Item Value Reference Range Interpretation Comments WHITE BLOOD CELL (test code = 9.28 x10 3/uL 4.80-10.80 N WBC) RED BLOOD CELL (test code = 4.05 x10 6/uL 4.2-5.4 L RBC) HEMOGLOBIN (test code = HGB) 8.7 G/DL 12.0-16.0 L HEMATOCRIT (test code = HCT) 30.4 % 37-47 L MEAN CELL VOLUME (test code = 75.1 FL 81-99 L MCV) MEAN CELL HGB (test code = MCH) 21.5 PG 27-31 L MEAN CELL HGB CONCENTRATION 28.6 G/DL 33-37 L (test code = MCHC) RED CELL DISTRIBUTION WIDTH 17.7 % 11.5-14.5 H (test code = RDW) PLATELET COUNT (test code = 283 x10 3/uL 150-450 N PLT) MEAN PLATELET VOLUME (test code 9.5 FL 7.4-10.4 N = MPV) NEUTROPHIL % (test code = NT%) % 42-86 N LYMPHOCYTE % (test code = LY%) % 24-44 N MONOCYTE % (test code = MO%) % 0.0-4.0 H EOSINOPHIL % (test code = EO%) % 0.0-2.7 H BASOPHIL % (test code = BA%) % 0.0-0.5 N NEUTROPHIL # (test code = NT#) x10 3/uL 1.8-7.7 N LYMPHOCYTE # (test code = LY#) x10 3/uL 1.0-4.8 N MONOCYTE # (test code = MO#) x10 3/uL 0.0-0.8 H EOSINOPHIL # (test code = EO#) x10 3/uL 0.0-0.5 N BASOPHIL # (test code = BA#) x10 3/uL 0.0-0.2 N Novel Coronavirus 2018 [id number] 18:45:00 Test Item Value Reference Range Interpretation Comments Novel Coronavirus Negative Negative [facility] Dx COVID-19 test 2019 nCoV (test code is a qu alitative test = COVID19) and does notpro vide quantitative va lue of the organism Results from this test must be correlated with theclinical his tory, epidemiological data and other dataavail able to the clinician e valuation the patient Interference fr om substances that were not evaluated could lead to erroneous resul ts A negative result does not exclude the pos sibility ofCOVID-19 infe ction. False negative test results may occ urdue to the presence of inhibitors. Te st results may als o beaffected by l evels of organism in the specimen that arebelow t hreshold detection for t he test. Negative result sshould not be used as a sole basis for diagn osis, treatment,or ot her patient managem ent decisions. - CT ABD PELVIS [id number] 00:20:00 Patient Name: KAREEN LOTT Unit No: [id number] EXAMS: CPT CODE: [id number] CT ABD PELVIS W/CONT [id number] Reason: epigastric and left upper quadra PROCEDURE INFORMATION: Exam: CT Abdomen And Pelvis With Contrast Exam date and time: 11/09/2019 11:53 PM Age: 44 years old Clinical indication: Abdominal pain; Epigastric; Prior surgery; Surgery date: 6+ months; Surgery type: Tubal and 4 c sections; Additional info: Epigastric and left upper quadrant abdominalpain TECHNIQUE: Imaging protocol: Computed tomography of the abdomen and pelviswith intravenous contrast. Radiation optimization: All CT scans at this facility use at least one of these dose optimization techniques: automated exposure control; mA and/or kV adjustment per patient size (includes targeted exams where dose is matched to clinical indication); or iterative reconstruction. Contrast material: [id number]; Contrast volume: 100 ml;Contrast route: INTRAVENOUS (IV); COMPARISON: CT ABD PELVIS W/CONT 04/14/2019 7:25 PM FINDINGS: Lungs: Respiratory motion at the lung bases. Lingular and right middle lobe scarring or atelectasis. Right lower lobe 5 mm pulmonary nodule (series 3, image 5), not significantly changed in size from April 2019. Liver: Liver size mildly prominent but not enlarged. e decreased hepatic attenuation suggestive of hepatic steatosis. Gallbladder and bile ducts: No calcified stones. No ductal dilation. Pancreas: Extensive fatty interdigitation throughout the pancreatic parenchyma. No peripancreatic inflammation. Spleen: No splenomegaly. Adrenals: No adrenal nodule. Kidneys and ureters: Symmetric phase of contrast. No hydronephrosis. Stomach and bowel: Stomach partially decompressed. No dilated loop of small bowel. Fluid-filled nondilated loops of distal small bowel. Mild colonic redundancy. Small colonic stool. Distal colon partially decompressed. Appendix: No evidence of appendicitis. Intraperitoneal space: No free air. No significant fluid collection. Vasculature: Normal caliber aorta. Lymph nodes: Scattered subcentimeter lymph nodes including along the aortocaval and periaortic chains. Non pathologically enlarged inguinal nodes. Urinary bladder: Urinary bladder partially decompressed. Reproductive: Uterus is present. Heterogenous uterine appearance suggestive of underlying leiomyoma. Trace hypoattenuating fluid/debris within the endometrial canal. Likely tampon in place. Bones/joints: Mild degenerative changes of the spine. Few tiny likely bone island similar to prior. Soft tissues: Fat containing periumbilical hernia. [facility] NAME: KAREEN LOTT [address] PHYS: [place] [address] : 1975 AGE: 44 SEX: F LOC: DBRIELLE PHONE #: [phone] EXAM DATE: 11/09/2019 STATUS: REG ER FAX #: RAD NO: DC Dt: PAGE 1 Signed Report (CONTINUED) Patient Name: KAREEN LOTT Unit No: [id number] EXAMS: CPT CODE: [id number] CT ABD PELVIS W/CONT [id number] <Continued> Reason: epigastric and left upper quadra IMPRESSION: No acute finding within the abdomen or pelvis. 5 mm pulmonary nodule, similar in size to April 2019. For patients at low risk (minimal or absent history of smoking and of other known risk factors), no routine follow-up is indicated. For patients at high risk (history of smoking or of other known risk factors), consider optional CT Chest at 12 months. (Reference: Kane) Hepatic steatosis. Likely leiomyomatous uterus. References: Kane H, et al. Guidelines for Management of Incidental Pulmonary Nodules Detected onCT Images: From the Fleischner Society 2017. Radiology. 2017;284(1):228-243. INTERNAL CODING PURPOSES ONLY RESULT CODE: CVR at 0020 Reported and signed by: Chao Skinner CC: Ari Al MD; Radha Patrick DO Technologist: Smita Hicks RT CT Trscrpt Dt/ (19)TARA.VR Orig Print D/T: S: 11/10/2019 (0020) CTDI: DLP: [facility] NAME: KAREEN LOTT [address] [facility] PHYS: [place] [address] : 1975 AGE: 44 SEX: F LOC: JORDYN PHONE #: [phone] EXAM DATE: 11/09/2019 STATUS: REG ER FAX #: RAD NO: DC Dt: PAGE 2 Signed ReportDRUG OF ABUSE SCREEN URINE 2019-11-09 23:33:00 Test Item Value Reference Interpretation Comments Range UR COCAINE (test NEGATIVE NEGATIVE code = COCAU) UR MDMA (test code = NEGATIVE NEGATIVE MDMAQLU) UR CANNABINOIDS NEGATIVE NEGATIVE (test code = CANU) UR AMPHETAMINE (test NEGATIVE NEGATIVE code = AMPHU) UR BARBITURATE QUAL NEGATIVE NEGATIVE (test code = BARBQLU) UR BENZODIAZEPINE NEGATIVE NEGATIVE (test code = BENZU) UR OPIATES QUAL NEGATIVE NEGATIVE (test code = OPIAQLU) UR PHENCYCLIDINE NEGATIVE NEGATIVE Urine Drug Abuse Screen (PCP) (test code = provides preliminary PHENCU) results thatmay be confirmed by fausto aguilar methods (i.e., GC[facility]) [facility]. Results of scre en may not be usedin crimi nal justice, job performance or professionalcre dential review, or infa nt custody issues. Negativ e [place] Level ng/ml ------- ----- Cocaine 300 Methamp hetamine (Ecstacy) 500 Cannabinoids (THC) 50 Amphetamine 1000 Barbiturate s 200 Benzodia zepines 200 Opiat es 300 Ph encyclidine (PCP) 25 ADD ONUA RFLX MICROSCOPIC [id number] 23:01:00 Test Item Value Reference Range Interpretation Comments UA COLOR (test code = COLU) YELLOW YELLOW UA APPEARANCE (test code = CLEAR CLEAR APPU) UA GLUCOSE DIPSTICK (test NEGATIVE mg/dL NEGATIVE code = DGLUU) UA BILIRUBIN DIPSTICK (test NEGATIVE NEGATIVE code = BILU) UA KETONE DIPSTICK (test code NEGATIVE mg/dL NEGATIVE = KETU) UA SPECIFIC GRAVITY (test 1.015 1.001-1.035 N code = SGU) UA BLOOD DIPSTICK (test code NEGATIVE NEGATIVE = ЮЛИЯ) UA PH DIPSTICK (test code = 8.0 5.5-7.0 H EDY) UA PROTEIN DIPSTICK (test NEGATIVE mg/dL NEGATIVE code = PROU) UA UROBILINOGEN DIPSTICK NORMAL mg/dL NORMAL (test code = URO) UA NITRITE DIPSTICK (test NEGATIVE NEGATIVE code = BLANQUITA) UA LEUKOCYTE ESTERASE NEGATIVE NEGATIVE DIPSTICK (test code = LEUU) UA COMMENT (test code = COMU) VOLUME 10-12 ML URINE SPECIMEN DESCRIPTION Clean Catch (test code = UASPEC) UA WBC (test code = WBCU) #/hpf <10 UA SQUAMOUS CELLS (test code #/lpf <100 = SQU) UA CULTURE NEEDED? (test code = UACULT) Indication for culture: Temperature > 100.4 FURINE SOURCE: Clean CatchUA RFLX MICROSCOPIC [id number] 23:01:00 Test Item Value Reference Range Interpretation Comments UA COLOR (test code = COLU) YELLOW YELLOW UA APPEARANCE (test code = CLEAR CLEAR APPU) UA GLUCOSE DIPSTICK (test NEGATIVE mg/dL NEGATIVE code = DGLUU) UA BILIRUBIN DIPSTICK (test NEGATIVE NEGATIVE code = BILU) UA KETONE DIPSTICK (test NEGATIVE mg/dL NEGATIVE code = KETU) UA SPECIFIC GRAVITY (test 1.015 1.001-1.035 N code = SGU) UA BLOOD DIPSTICK (test code NEGATIVE NEGATIVE = ЮЛИЯ) UA PH DIPSTICK (test code = 8.0 5.5-7.0 H EDY) UA PROTEIN DIPSTICK (test NEGATIVE mg/dL NEGATIVE code = PROU) UA UROBILINOGEN DIPSTICK NORMAL mg/dL NORMAL (test code = URO) UA NITRITE DIPSTICK (test NEGATIVE NEGATIVE code = BLANQUITA) UA LEUKOCYTE ESTERASE NEGATIVE NEGATIVE DIPSTICK (test code = LEUU) UA COMMENT (test code = VOLUME 10-12 ML COMU) URINE SPECIMEN DESCRIPTION Clean Catch (test code = UASPEC) UA WBC (test code = WBCU) < 10 #/hpf <10 UA SQUAMOUS CELLS (test code 0 - 20 #/lpf <100 = SQU) UA CULTURE NEEDED? (test Criteria not met code = UACULT) Indication for culture: Temperature > 100.4 FURINE SOURCE: Clean CatchCBC W/AUTO [id number] 23:00:00 Test Item Value Reference Range Interpretation Comments WHITE BLOOD CELL (test 22.44 x10 3/uL 4.80-10.80 H Res ults called to code = WBC) and read back Anne VILLA RN;2251, 11/09/19, D.LAB.AMQ. RED BLOOD CELL (test 4.49 x10 6/uL 4.2-5.4 N code = RBC) HEMOGLOBIN (test code 10.3 G/DL 12.0-16.0 L = HGB) HEMATOCRIT (test code 33.7 % 37-47 L = HCT) MEAN CELL VOLUME (test 75.1 FL 81-99 L code = MCV) MEAN CELL HGB (test 22.7 PG 27-31 L code = MCH) MEAN CELL HGB 30.3 G/DL 33-37 L CONCENTRATION (test code = MCHC) RED CELL DISTRIBUTION 19.5 % 11.5-14.5 H WIDTH (test code = RDW) PLATELET COUNT (test 404 x10 3/uL 150-450 N code = PLT) MEAN PLATELET VOLUME 8.8 FL 7.4-10.4 N (test code = MPV) MANUAL DIFF REQUIRED ADD MANUAL DIFF TECH REVIEW (test code = MDIFF) WBC [id number] 23:00:00 Test Item Value Reference Range Interpretation Comments RBC MORPHOLOGY COMMENT See Comment (test code = RBCM) TOTAL CELLS COUNTED (test 100 #CELLS code = TCC) SEGMENTED NEUTROPHILS (test 85 % 42-86 N code = SEG) BAND NEUTROPHIL (test code 3 % 0-11 N = BAND) LYMPHOCYTE (test code = 7 % 24-44 L LYMPH) MONOCYTE (test code = MON) 5 % 0-4 H BAND ABSOLUTE (test code = 0.67 x10 3/uL 0.0-0.7 N BAND#) NEUTROPHIL ABSOLUTE (test 19.07 x10 3/uL 6.0-26.0 N code = NEUTR#) LYMPH ABSOLUTE (test code = 1.57 x10 3/uL 2.0-17.0 L LYMPH#) ATYPICAL LYMPH ABSOLUTE 0.00 x10 3/uL 0.0-0.0 N (test code = ALYMPH#) MONOCYTE ABSOLUTE (test 1.12 x10 3/uL 0.4-3.1 N code = MON#) BASOPHIL ABSOLUTE (test 0.00 x10 3/uL 0.0-0.2 N code = BASO#) EOSINOPHIL ABSOLUTE (test 0.00 x10 3/uL 0.0-0.5 N code = EOS#) METAMYELO ABSOLUTE (test 0.00 x10 3/uL 0.0-0.0 N code = META#) MYELOCYTE ABSOLUTE (test 0.00 x10 3/uL 0.0-0.0 N code = MYELO#) PROMYELOCYTE ABSOLUTE (test 0.00 x10 3/uL 0.0-0.0 N code = PROM#) BLASTS ABSOLUTE (test code 0.00 x10 3/uL 0.0-0.0 N = BLAST#) OTHER CELLS ABSOLUTE (test 0.00 x10 3/uL 0.0-0.0 N code = OCT#) HYPOCHROMIA (test code = 1+ HYPO) POIKILOCYTOSIS (test code = 1+ POIK) ANISOCYTOSIS (test code = 2+ ANISO) MICROCYTOSIS (test code = 1+ MICR) PLATELET ESTIMATE (test Norm ADEQ code = PLTEST) PLATELET MORPHOLOGY (test Variable Plt Size Normal A code = PLTMORPH) COMPREHENSIVE METABOLIC [id number] 22:56:00 Test Item Value Reference Range Interpretation Comments SODIUM (test code = 136 MMOL/L 133-145 N NA) POTASSIUM (test code = 3.5 MMOL/L 3.6-5.2 L K) CHLORIDE (test code = 100 MMOL/L 100-108 N CL) CARBON DIOXIDE (test 27 MMOL/L 22-32 N code = CO2) GLUCOSE (test code = 103 MG/DL 65-99 H Results of this GLU) assay method ma y be falsely depress ed orelevated if patient is taki ng sulfasalazine. BLOOD UREA NITROGEN 10 MG/DL 6-20 N (test code = BUN) GLOMERULAR FILTRATION 65 58-135 N Report ing units: RATE (test code = GFR) mL/mi n/1.73m\\S\\2 (Modified MDRD Formula) CREATININE (test code 0.94 MG/DL 0.60-1.00 N = CREAT) TOTAL PROTEIN (test 7.5 G/DL 6.4-8.2 N code = PROT) ALBUMIN (test code = 3.7 G/DL 3.4-5.0 N ALB) GLOBULIN (test code = 3.8 G/DL 1.5-3.8 N GLOB) ALBUMIN/GLOBULIN RATIO 1.0 1.1-2.2 L (test code = A/G) CALCIUM (test code = 9.0 MG/DL 8.7-10.5 N CA) BILIRUBIN TOTAL (test 0.5 MG/DL 0.0-1.0 N code = BILT) SGOT/AST (test code = 21 Units/L 15-37 N Result s of this AST) assay method ma y be falsely depress ed orelevated if patient is taki ng sulfasalazine. SGPT/ALT (test code = 29 Units/L 30-65 L Result s of this ALT) assay method ma y be falsely depress ed orelevated if patient is taki ng sulfasalazine. ALKALINE PHOSPHATASE 103 Units/L 50-136 N TOTAL (test code = ALKP) [id number] 22:56:00 Test Item Value Reference Range Interpretation Comments LIPASE (test code = LIP) 129 Units/L 73-393 N [id number] 22:56:00 Test Item Value Reference Range Interpretation Comments TROPONIN-I (test < 0.04 NG/ML 0.00-0.06 N - The use of serial code = TROPI) sampling and t esting protocol is a recommended pra ctice.- An elevated tro ponin level alone is often not sufficient fo r diagnosis of my ocardial infarction.Resu lts of this assay meth od may be falsely depress ed orelevated if p atient is taking high dos es of Biotin. LACTIC [id number] 22:55:00 Test Item Value Reference Range Interpretation Comments LACTIC ACID (test code = LACT) 1.6 MMOL/L 0.5-2.2 N COMPREHENSIVE METABOLIC [id number] 22:50:00 Test Item Value Reference Range Interpretation Comments SODIUM (test code = 136 MMOL/L 133-145 N NA) POTASSIUM (test code = 3.5 MMOL/L 3.6-5.2 L K) CHLORIDE (test code = 100 MMOL/L 100-108 N CL) CARBON DIOXIDE (test 27 MMOL/L 22-32 N code = CO2) GLUCOSE (test code = 103 MG/DL 65-99 H Results of this assay GLU) method may be f alsely depressed orele vated if patient is t aking sulfasalazine. BLOOD UREA NITROGEN 10 MG/DL 6-20 N (test code = BUN) GLOMERULAR FILTRATION 65 58-135 N Report ing units: RATE (test code = GFR) mL/mi n/1.73m\\S\\2 (Modified MDRD Formula) CREATININE (test code 0.94 MG/DL 0.60-1.00 N = CREAT) TOTAL PROTEIN (test G/DL 6.4-8.2 code = PROT) ALBUMIN (test code = G/DL 3.4-5.0 ALB) GLOBULIN (test code = G/DL 1.5-3.8 GLOB) ALBUMIN/GLOBULIN RATIO 1.1-2.2 (test code = A/G) CALCIUM (test code = 9.0 MG/DL 8.7-10.5 N CA) BILIRUBIN TOTAL (test MG/DL 0.0-1.0 code = BILT) SGOT/AST (test code = Units/L 15-37 AST) SGPT/ALT (test code = Units/L 30-65 ALT) ALKALINE PHOSPHATASE Units/L 50-136 TOTAL (test code = ALKP) [id number] 22:50:00 Test Item Value Reference Range Interpretation Comments LIPASE (test code = LIP) Units/L 73-393 [id number] 22:50:00 Test Item Value Reference Range Interpretation Comments TROPONIN-I (test code = TROPI) NG/ML 0.00-0.06 CBC W/AUTO [id number] 22:48:00 Test Item Value Reference Range Interpretation Comments WHITE BLOOD CELL (test 22.44 x10 3/uL 4.80-10.80 H Res ults called to code = WBC) and read back Anne VILLA RN;2982, 11/09/19, D.LAB.AMQ. RED BLOOD CELL (test 4.49 x10 6/uL 4.2-5.4 N code = RBC) HEMOGLOBIN (test code 10.3 G/DL 12.0-16.0 L = HGB) HEMATOCRIT (test code 33.7 % 37-47 L = HCT) MEAN CELL VOLUME (test 75.1 FL 81-99 L code = MCV) MEAN CELL HGB (test 22.7 PG 27-31 L code = MCH) MEAN CELL HGB 30.3 G/DL 33-37 L CONCENTRATION (test code = MCHC) RED CELL DISTRIBUTION 19.5 % 11.5-14.5 H WIDTH (test code = RDW) PLATELET COUNT (test 404 x10 3/uL 150-450 N code = PLT) MEAN PLATELET VOLUME 8.8 FL 7.4-10.4 N (test code = MPV) NEUTROPHIL % (test % 42-86 H code = NT%) LYMPHOCYTE % (test % 24-44 L code = LY%) MONOCYTE % (test code % 0.0-4.0 H = MO%) EOSINOPHIL % (test % 0.0-2.7 N code = EO%) BASOPHIL % (test code % 0.0-0.5 N = BA%) NEUTROPHIL # (test x10 3/uL 1.8-7.7 H code = NT#) LYMPHOCYTE # (test x10 3/uL 1.0-4.8 N code = LY#) MONOCYTE # (test code x10 3/uL 0.0-0.8 H = MO#) EOSINOPHIL # (test x10 3/uL 0.0-0.5 N code = EO#) BASOPHIL # (test code x10 3/uL 0.0-0.2 N = BA#) MANUAL DIFF REQUIRED ADD MANUAL DIFF TECH REVIEW (test code = MDIFF) WBC [id number] 22:48:00 Test Item Value Reference Range Interpretation Comments RBC MORPHOLOGY COMMENT (test code = RBCM) PLATELET ESTIMATE (test code = PLTEST) ADEQ CBC W/AUTO [id number] 22:48:00 Test Item Value Reference Range Interpretation Comments WHITE BLOOD CELL (test 22.44 x10 3/uL 4.80-10.80 H Res ults called to code = WBC) and read back Anne VILLA RN;7194, 11/09/19, D.LAB.AMQ. RED BLOOD CELL (test 4.49 x10 6/uL 4.2-5.4 N code = RBC) HEMOGLOBIN (test code 10.3 G/DL 12.0-16.0 L = HGB) HEMATOCRIT (test code 33.7 % 37-47 L = HCT) MEAN CELL VOLUME (test 75.1 FL 81-99 L code = MCV) MEAN CELL HGB (test 22.7 PG 27-31 L code = MCH) MEAN CELL HGB 30.3 G/DL 33-37 L CONCENTRATION (test code = MCHC) RED CELL DISTRIBUTION 19.5 % 11.5-14.5 H WIDTH (test code = RDW) PLATELET COUNT (test 404 x10 3/uL 150-450 N code = PLT) MEAN PLATELET VOLUME 8.8 FL 7.4-10.4 N (test code = MPV) NEUTROPHIL % (test % 42-86 H code = NT%) LYMPHOCYTE % (test % 24-44 L code = LY%) MONOCYTE % (test code % 0.0-4.0 H = MO%) EOSINOPHIL % (test % 0.0-2.7 N code = EO%) BASOPHIL % (test code % 0.0-0.5 N = BA%) NEUTROPHIL # (test x10 3/uL 1.8-7.7 H code = NT#) LYMPHOCYTE # (test x10 3/uL 1.0-4.8 N code = LY#) MONOCYTE # (test code x10 3/uL 0.0-0.8 H = MO#) EOSINOPHIL # (test x10 3/uL 0.0-0.5 N code = EO#) BASOPHIL # (test code x10 3/uL 0.0-0.2 N = BA#) MANUAL DIFF REQUIRED ADD MANUAL DIFF TECH REVIEW (test code = MDIFF) WBC [id number] 22:48:00 Test Item Value Reference Range Interpretation Comments RBC MORPHOLOGY COMMENT (test code = RBCM) PLATELET ESTIMATE (test code = PLTEST) ADEQ - XR CHEST 1 [id number] 22:38:00 Patient Name: KAREEN LOTT Unit No: [id number] EXAMS: CPT CODE: [id number] XR CHEST 1 V [id number] Reason: sob PROCEDURE INFORMATION: Exam: XR Chest, 1 View Exam date and time: 11/09/2019 10:34 PM Age: 44 years old Clinical indication: Shortness of breath; Patient HX: Fever, nausea, diarrhea x 2 days; Additional info: SOB TECHNIQUE: Imaging protocol: XR of the chest Views: 1 view. COMPARISON: CR XR CHEST 1 V 07/04/2019 2:56 AM FINDINGS: Lungs: Lungs well expanded. Faint basilar streaky likely atelectasis. Summation from chest wall/breast soft tissues at the lower lung tsephens. No dense consolidation. Pleural space: No large pleuraleffusion. No pneumothorax. Heart/Mediastinum: Cardiomediastinal silhouette within normal limits for size given technique. Mediastinal contour similar to prior. Bones/joints: No displaced fracture. IMPRESSION: Faint basilar likely atelectasis. No dense consolidation. INTERNAL CODING PURPOSES ONLY RESULT CODE: CVR at 2238 Reported and signed by: Chao Cisneros MD [employer] CC: Ari Al MD; Radha Patrick DO Technologist: JEN PURCELL Trscrpt Dt/ (2237)VRAD.VR Orig Print D/T: S: 11/09/2019 (2237) [facility] [address] [facility] PHYS: [place] [address] : 1975 AGE: 44 SEX: F LOC: JORDYN PHONE #: [phone] EXAM DATE: 11/09/2019 STATUS: PRE ER FAX #: RAD NO: DC Dt: PAGE 1 Signed ReportTROPONIN I [id number] 05:30:00 Test Item Value Reference Range Interpretation Comments TROPONIN I RAPID 0.00 NG/ML 0.00-0.08 N Performed b y certified (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 DRUG OF ABUSE SCREEN [id number] 03:55:00 Test Item Value Reference Interpretation Comments Range UR COCAINE (test NEGATIVE NEGATIVE code = COCAU) UR MDMA (test code = NEGATIVE NEGATIVE MDMAQLU) UR CANNABINOIDS NEGATIVE NEGATIVE (test code = CANU) UR AMPHETAMINE (test NEGATIVE NEGATIVE code = AMPHU) UR BARBITURATE QUAL NEGATIVE NEGATIVE (test code = BARBQLU) UR BENZODIAZEPINE NEGATIVE NEGATIVE (test code = BENZU) UR OPIATES QUAL NEGATIVE NEGATIVE (test code = OPIAQLU) UR PHENCYCLIDINE NEGATIVE NEGATIVE Urine Drug Abuse Screen (PCP) (test code = provides preliminary PHENCU) results thatmay be confirmed by fausto aguilar methods (i.e., GC/MS) at [facility]. Results of scre en may not be usedin crimi nal justice, job performance or professionalcre dential review, or infa nt custody issues. Negativ e [place] Level ng/ml ------- ----- Cocaine 300 Methamp hetamine (Ecstacy) 500 Cannabinoids (THC) 50 Amphetamine 1000 Barbiturate s 200 Benzodia zepines 200 Opiat es 300 Ph encyclidine (PCP) 25 COMPREHENSIVE METABOLIC [id number] 03:47:00 Test Item Value Reference Range Interpretation Comments SODIUM (test code = 139 MMOL/L 133-145 N NA) POTASSIUM (test code = 3.5 MMOL/L 3.6-5.2 L K) CHLORIDE (test code = 102 MMOL/L 100-108 N CL) CARBON DIOXIDE (test 26 MMOL/L 22-32 N code = CO2) GLUCOSE (test code = 93 MG/DL 65-99 N Results of this assay GLU) method may be f alsely depressed orele vated if patient is t aking sulfasalazine. BLOOD UREA NITROGEN 11 MG/DL 6-20 N (test code = BUN) GLOMERULAR FILTRATION 98 58-135 N Report ing units: RATE (test code = GFR) mL/mi n/1.73m\\S\\2 (Modified MDRD Formula) CREATININE (test code 0.66 MG/DL 0.60-1.00 N = CREAT) TOTAL PROTEIN (test 7.3 G/DL 6.4-8.2 N code = PROT) ALBUMIN (test code = 3.4 G/DL 3.4-5.0 N ALB) GLOBULIN (test code = 3.9 G/DL 1.5-3.8 H GLOB) ALBUMIN/GLOBULIN RATIO 0.9 1.1-2.2 L (test code = A/G) CALCIUM (test code = 8.3 MG/DL 8.7-10.5 L CA) BILIRUBIN TOTAL (test 0.3 MG/DL 0.0-1.0 N code = BILT) SGOT/AST (test code = 9 Units/L 15-37 L Result s of this assay AST) method may be f alsely depressed orele vated if patient is t aking sulfasalazine. SGPT/ALT (test code = 23 Units/L 30-65 L Result s of this assay ALT) method may be f alsely depressed orele vated if patient is t aking sulfasalazine. ALKALINE PHOSPHATASE 89 Units/L 50-136 N TOTAL (test code = ALKP) [id number] 03:47:00 Test Item Value Reference Range Interpretation Comments MAGNESIUM (test code = MAG) 1.9 MG/DL 1.8-2.4 N NT PRO-BRAIN NATRIURETIC [id number] 03:47:00 Test Item Value Reference Range Interpretation Comments NT PRO-BRAIN 132 PG/ML 0-125 H Results of this assay NATRIURETIC PEPTI (test meth od may be falsely code = PROBNP) depressed ore levated if patient is t aking high doses of B iotin. CPK-MB [id number] 03:47:00 Test Item Value Reference Range Interpretation Comments CK (test code = 58 Units/L 26-192 N CKT) CKMB (test code = 0.5 NG/ML 0.0-3.6 N CKMB sugge stive of CKMBT) non-AMI; MB Ind ex is not reported. [id number] 03:47:00 Test Item Value Reference Range Interpretation Comments ALCOHOL (test code = < 3 MG/DL 0-10 N 0 - 10: Should be ALC) interpreted as NEGATIVE. 11 - 50: None to mild euphoria. 51 - 100: Mild influence on vision and dark adapta tion. 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 > 400: Fatalities repo rted. Results are for medical purposes only a nd not forlegal or emp loyment evaluative purp oses. CBC W/AUTO [id number] 03:41:00 Test Item Value Reference Range Interpretation Comments WHITE BLOOD CELL (test 14.26 x10 3/uL 4.80-10.80 H Res ults called to code = WBC) and read back b y GEOFFREY MAIER RN;0341, 07/04/19, D.LAB.CH. RED BLOOD CELL (test 4.26 x10 6/uL 4.2-5.4 N code = RBC) HEMOGLOBIN (test code = 10.0 G/DL 12.0-16.0 L HGB) HEMATOCRIT (test code = 33.0 % 37-47 L HCT) MEAN CELL VOLUME (test 77.5 FL 81-99 L code = MCV) MEAN CELL HGB (test 23.5 PG 27-31 L code = MCH) MEAN CELL HGB 30.3 G/DL 33-37 L CONCENTRATION (test code = MCHC) RED CELL DISTRIBUTION 20.9 % 11.5-14.5 H WIDTH (test code = RDW) PLATELET COUNT (test 392 x10 3/uL 150-450 N code = PLT) MEAN PLATELET VOLUME 8.9 FL 7.4-10.4 N (test code = MPV) NEUTROPHIL % (test code 72.1 % 42-86 N = NT%) LYMPHOCYTE % (test code 18.4 % 24-44 L = LY%) MONOCYTE % (test code = 9.3 % 0.0-4.0 H MO%) EOSINOPHIL % (test code 0.1 % 0.0-2.7 N = EO%) BASOPHIL % (test code = 0.1 % 0.0-0.5 N BA%) NEUTROPHIL # (test code 10.29 x10 3/uL 1.8-7.7 H = NT#) LYMPHOCYTE # (test code 2.62 x10 3/uL 1.0-4.8 N = LY#) MONOCYTE # (test code = 1.33 x10 3/uL 0.0-0.8 H MO#) EOSINOPHIL # (test code 0.01 x10 3/uL 0.0-0.5 N = EO#) BASOPHIL # (test code = 0.01 x10 3/uL 0.0-0.2 N BA#) PROTHROMBIN [id number] 03:37:00 Test Item Value Reference Range Interpretation Comments PROTHROMBIN TIME 11.1 SECONDS 9.9-13.2 N Referen ce Range PATIENT (test code = revised from PTP) 10.7-13.9 as of 03/24/17. INTERNATIONAL NORMAL 0.97 Recomme nded INR range RATIO (test code = (warfarin therapy): INR) 2.0 - 3.0I NR (International Normalized Rati o) should beused w hen interpreting or al anticoaglulant therapy. For at rial fibrillation an d treatment orprevention of deep vein thrombosis . Patients with Palmaz-Fran s tent *: 2 .0 - 3.0 Patients wi th mechanical hear t valve *: 2.5 - 3.5 Patients with flex-stent *: 3.0 - 4.0(*) = sign language interpreter's suggested range Is patient on anticoagulants? UnknownCOMPREHENSIVE METABOLIC [id number] 03:32:00 Test Item Value Reference Range Interpretation Comments SODIUM (test code = 139 MMOL/L 133-145 N NA) POTASSIUM (test code = 3.5 MMOL/L 3.6-5.2 L K) CHLORIDE (test code = 102 MMOL/L 100-108 N CL) CARBON DIOXIDE (test 26 MMOL/L 22-32 N code = CO2) GLUCOSE (test code = 93 MG/DL 65-99 N Results of this assay GLU) method may be f alsely depressed orele vated if patient is t aking sulfasalazine. BLOOD UREA NITROGEN 11 MG/DL 6-20 N (test code = BUN) GLOMERULAR FILTRATION 98 58-135 N Report ing units: RATE (test code = GFR) mL/mi n/1.73m\\S\\2 (Modified MDRD Formula) CREATININE (test code 0.66 MG/DL 0.60-1.00 N = CREAT) TOTAL PROTEIN (test G/DL 6.4-8.2 code = PROT) ALBUMIN (test code = G/DL 3.4-5.0 ALB) GLOBULIN (test code = G/DL 1.5-3.8 GLOB) ALBUMIN/GLOBULIN RATIO 1.1-2.2 (test code = A/G) CALCIUM (test code = 8.3 MG/DL 8.7-10.5 L CA) BILIRUBIN TOTAL (test MG/DL 0.0-1.0 code = BILT) SGOT/AST (test code = Units/L 15-37 AST) SGPT/ALT (test code = Units/L 30-65 ALT) ALKALINE PHOSPHATASE Units/L 50-136 TOTAL (test code = ALKP) [id number] 03:32:00 Test Item Value Reference Range Interpretation Comments MAGNESIUM (test code = MAG) MG/DL 1.8-2.4 NT PRO-BRAIN NATRIURETIC [id number] 03:32:00 Test Item Value Reference Range Interpretation Comments NT PRO-BRAIN NATRIURETIC PEPTI (test PG/ML 0-125 code = PROBNP) CPK-MB [id number] 03:32:00 Test Item Value Reference Range Interpretation Comments CK (test code = CKT) Units/L 26-192 CKMB (test code = CKMBT) NG/ML 0.0-3.6 CKMB INDEX (test code = CKMBI) % 0.0-2.4 [id number] 03:32:00 Test Item Value Reference Range Interpretation Comments ALCOHOL (test code = ALC) MG/DL 0-10 HCG SERUM [id number] 03:32:00 Test Item Value Reference Range Interpretation Comments HCG SERUM QUAL NEGATIVE NEGATIVE False negativ es may occur (test code = when levels of hCGare below HCGQL) 10 mIU/ml. When is still suspec ronald, a new specimenshould be obtained after 48 hours and re-tested.If wa iting 48 hours is not me dically advisable,the t est result should be confi rmed using aquantitative h CG assay. 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 - CT HEAD/BRAIN W/O [id number] 03:16:00 Patient Name: KAREEN LOTT Unit No: [id number] EXAMS: CPT CODE: [id number] CT HEAD/BRAIN W/O CONT [id number] Reason: NUMBNESS PROCEDURE INFORMATION: Exam: CT Head Without Contrast Exam date and time: 07/04/2019 3:06 AM Age: 43 years old Clinical indication: Numbness / parasthesia; Patient HX: Shielded TECHNIQUE: Imaging protocol: Computed tomography of the head without contrast. Radiation optimization: All CT scans at this facility use at least one of these dose optimization techniques: automated exposure control; mA and/or kV adjustment per patient size (includes targeted exams where doseis matched to clinical indication); or iterative reconstruction. COMPARISON: CT HEAD/BRAIN W/O CONT 10/28/2016 4:39 PM FINDINGS: Brain: Normal. No hemor rhage. Unremarkable white matter. No mass effect. Ventricles: Normal. No ventriculomegaly. Bones/joints: Unremarkable. No acute fracture. Sinuses: Moderate circumferential mucosal thickening in the bilateral, ethmoid, maxillary and sphenoid sinuses. Mastoid air cells: Visualized mastoid air cells are well aerated. Soft tissues: Unremarkable. IMPRESSION: 1. No acute intracranial abnormality. 2. Sinus mucosal disease. at 0316 Reported and signed by: Liz COLLINSAD CC: Katya Hudson MD; Radha Patrick DO Technologist: Marimar Elias CT Trscrpt Dt/ (315)VRAD.VROrig Print D/T: S: 07/04/2019 (315) CTDI: DLP: [facility] NAME: KAREEN LOTT [address] [facility] PHYS: Kat[place] [address] : 1975 AGE: 43 SEX: F LOC: D.NER PHONE #: [phone] EXAM DATE: 07/04/2019 STATUS: PRE ER FAX #: RAD NO: DC Dt: PAGE 1 Signed Report- XR CHEST 1 [id number] 03:15:00 Patient Name: KAREEN LOTT Unit No: [id number] EXAMS: CPT CODE: [id number] XR CHEST 1 V 17430 Reason: CHEST PAIN PROCEDURE INFORMATION: Exam: XR Chest, 1 View Exam date and time: 07/04/2019 3:06 AM Age: 43 years old Clinical indication: Left-sided chest pain; Patient HX: HX cystic fibrosis. Shielded TECHNIQUE: Imaging protocol: XR of the chest Views: 1 view. COMPARISON: CR XR CHEST 1 V 08/31/2018 1:49 PM FINDINGS: Lungs: Bibasilar hazy airspace opacities which appear similar to the prior study and may be due to atelectasis h owever superimposed pulmonary edema versus developing pneumonia is not excluded. Pleural space: No large pleural effusion. No pneumothorax. Heart/Mediastinum: No cardiomegaly. Bones/joints: Unremarkable. IMPRESSION: Bibasilar hazy airspace opacities which appear similar to the prior study and may be due to atelectasis however superi mposed pulmonary edema versus developing pneumonia is not excluded. at 0315 Reported and signed by: Liz COLLINSAD CC: Ning Hudson MD; Radha Patrick DO Technologist: Marimar Elias CT Trscrpt Dt/ (314)VRAD.VR Orig Print D/T: S: 07/04/2019 (314) [facility] NAME: KAREEN LOTT [address] [facility] PHYS: Katya Burrell MD [place], [place] : 1975 AGE: 43 SEX: F ACCT NO: D [id number] LOC: JORDYN PHONE #: [phone] EXAM DATE: 07/04/2019 STATUS: PRE ER FAX #: RAD NO: DC Dt: PAGE 1 Signed Report- XR FOOT 3+V RT 2019-05-23 17:15:00 Patient Name: KAREEN LOTT Unit No: [id number] EXAMS: CPT CODE: [id number] XR FOOT 3+V RT [id number] Reason: pain History: Ankle pain. Right foot, 3 views. FINDINGS: Osseous structures are intact and show normalalignment. Accessory ossicle adjacent to the cuboid bone of the lateral midfoot is incidentally noted and measures 5 mm in diameter. Osseous spurring of the posterior calcaneus is seen at the insertion of the plantar fascia and Achilles tendon. No other abnormalities are seen. Mortise joint and ankle joint appear within normal limits as visualized on this exam. No ankle joint effusion is seen. IMPRESSION: 1. Posterior calcaneal osseous spurring. 2. No focal pathology seen within the ankle joint with limited views provided. 3. Small accessory ossicle lateral to the cuboid bone at the lateral midfoot. Number for remaining exam is within normal limits. at 1715 Reported and signed by: Stevenson Maguire MD CC: Jeff Pineda MD; Radha Patrick DO Technologist: Zohaib Muñoz CT Trscrpt Dt/ (2155)t.[email or web address].ELG Orig Print D/T: S: 05/23/2019 (6019) [facility] NAME: KAREEN LOTT [id number] [facility] PHYS: [place] [address] : 1975 AGE: 43 SEX: F LOC: D.NER PHONE #: [phone] EXAM DATE: 05/23/2019 STATUS: REG ER FAX #: RAD NO: DC Dt: PAGE 1 Signed Report- CT ABD PELVIS W/CONT 2019-04-14 21:04:00 Patient Name: KAREEN LOTT Unit No: [id number] EXAMS: CPT CODE: [id number] CT ABD PELVIS W/CONT 61528 Reason: adominal pain, ventral hernia PROCEDURE INFORMATION: Exam: CT Abdomen And Pelvis With Contrast Exam date and time: 04/14/2019 7:58 PM Age: 43 years old Clinical indication: Abdominal pain; Prior surgery; Surgery date: 6+ months; Additional info: Adominal pain, ventral hernia TECHNIQUE: Imaging protocol: Computed tomography of the abdomen and pelvis with intravenous contrast. Radiation optimization: All CT scans at this facility use at least one of these dose optimization techniques: automated exposure control; mA and/or kV adjustment per patient size (includes targeted exams where dose is matched to clinical indication); or iterative reconstruction. Contrast material: ISOVUE 300; Contrast volume: 80 ml; Contrast route: IV; COMPARISON: CT ABD PELVIS W/CONT 10/28/2016 5:39 PM FINDINGS: Lungs: Right middle lobe atelectasis. Atelectasis within the lingula. Small noncalcified right lower lobe pulmonary nodule measuring5 x 5 x 4 mm. Liver: Mild fatty infiltration of the liver. Gallbladder and bile ducts: Normal. No calcified stones. No ductal dilation. Pancreas: Normal. No ductal dilation. Spleen: Normal. No splenomegaly. Adrenals: Normal. No mass. Kidneys andureters: Normal. No hydronephrosis. Stomach and bowel: Mild stool within the transverse and right colon. No large or small bowel dilatation to suggest obstruction. No bowel wall thickening. Appendix: Normal appendix. Intraperitoneal space: No pneumoperitoneum. No ascites. Vasculature: Unremarkable. No abdominal aortic aneurysm. Lymph nodes: No retroperi toneal or mesenteric adenopathy. Bladder: Minimal wall thickening of the urinary bladder consistent with under distention versus cystitis. Reproductive: Tampon within the vagina. Bones/joints: Unremarkable. No acute fracture. Soft tissues: Small fat containing umbilical hernia. IMPRESSION: 1. No definite acute findings. No acute infl ammatory process or bowel obstruction. 2. Minimal wall thickening of the urinary bladder consistent with under distention versus cystitis. 3. Small noncalcified right lower lobe pulmonary nodule measuring 5 x 5 x 4 mm.For patients at low risk (minimal or [facility] NAME: KAREEN LOTT [address] [facility] PHYS: Alla Beltrán [place] [address] : 1975 AGE: 43 SEX: F LOC: KIRBY PHONE #: [phone] EXAM DATE: 04/14/2019 STATUS: REG ER FAX #: RAD NO: DC Dt: PAGE 1 Signed Report (CONTINUED) Patient Name: KAREEN LOTT Unit No: [id number] EXAMS: CPT CODE: [id number] CT ABD PELVIS W/CONT 11064 <Continued> Reason: adominal pain, ventral hernia absent history of smoking and of other known risk factors), no routine follow-up is indicated. For patients at high risk (history of smoking or of other known risk factors), consider optional CT Chest at 12 months. Kane Jackson, [employer]ner [employer], 2017. 4. Mild fatty infiltration of the liver. 5. Small fat containing umbilical hernia. at 2104 Reported and signed by: Karin Skinner CC: Alla Vargas DO; Yaz Urias SAP ARIBA CONSULTANT; Radha Patrick DO Technologist: Len Stark CT Trscrpt Dt/ (2103)[email or web address].VR Orig Print D/T: S: 04/14/2019 (2103) CTDI: DLP: [facility] NAME: KAREEN LOTT [address] PHYS: [place] [address] : 1975 AGE: 43 SEX: F LOC: DGERDA PHONE #: [phone] EXAM DATE: 04/14/2019 STATUS: REG ER FAX #: RAD NO: DC Dt: PAGE 2 Signed ReportCOMPREHENSIVE METABOLIC [id number] 18:06:00 Test Item Value Reference Range Interpretation Comments SODIUM (test code = 141 MMOL/L 133-145 N NA) POTASSIUM (test code = 3.5 MMOL/L 3.6-5.2 L K) CHLORIDE (test code = 104 MMOL/L 100-108 N CL) CARBON DIOXIDE (test 29 MMOL/L 22-32 N code = CO2) GLUCOSE (test code = 79 MG/DL 65-99 N Results of this assay GLU) method may be f alsely depressed orele vated if patient is t aking sulfasalazine. BLOOD UREA NITROGEN 12 MG/DL 6-20 N (test code = BUN) GLOMERULAR FILTRATION 79 58-135 N Report ing units: RATE (test code = GFR) mL/mi n/1.73m\\S\\2 (Modified MDRD Formula) CREATININE (test code 0.79 MG/DL 0.60-1.00 N = CREAT) TOTAL PROTEIN (test 7.5 G/DL 6.4-8.2 N code = PROT) ALBUMIN (test code = 3.6 G/DL 3.4-5.0 N ALB) GLOBULIN (test code = 3.9 G/DL 1.5-3.8 H GLOB) ALBUMIN/GLOBULIN RATIO 0.9 1.1-2.2 L (test code = A/G) CALCIUM (test code = 8.6 MG/DL 8.7-10.5 L CA) BILIRUBIN TOTAL (test 0.3 MG/DL 0.0-1.0 N code = BILT) BILIRUBIN INDIRECT 0.2 MG/DL 0.0-0.7 N (test code = BILIND) SGOT/AST (test code = 13 Units/L 15-37 L Result s of this assay AST) method may be f alsely depressed orele vated if patient is t aking sulfasalazine. SGPT/ALT (test code = 23 Units/L 30-65 L Result s of this assay ALT) method may be f alsely depressed orele vated if patient is t aking sulfasalazine. ALKALINE PHOSPHATASE 84 Units/L 50-136 N TOTAL (test code = ALKP) HEPATIC FUNCTION [id number] 18:06:00 Test Item Value Reference Range Interpretation Comments BILIRUBIN DIRECT (test code = BILD) 0.1 MG/DL 0.0-0.3 N [id number] 18:06:00 Test Item Value Reference Range Interpretation Comments LIPASE (test code = LIP) 273 Units/L 73-393 N UA RFLX MICROSCOPIC [id number] 18:01:00 Test Item Value Reference Range Interpretation Comments UA COLOR (test code = COLU) Light-Yellow YELLOW UA APPEARANCE (test code = CLEAR CLEAR APPU) UA GLUCOSE DIPSTICK (test NORMAL mg/dL NEGATIVE code = DGLUU) UA BILIRUBIN DIPSTICK (test NEGATIVE NEGATIVE code = BILU) UA KETONE DIPSTICK (test NEGATIVE mg/dL NEGATIVE code = KETU) UA SPECIFIC GRAVITY (test 1.037 1.001-1.035 H code = SGU) UA BLOOD DIPSTICK (test code 2+ NEGATIVE A = ЮЛИЯ) UA PH DIPSTICK (test code = 5.5 5.5-7.0 N EDY) UA PROTEIN DIPSTICK (test 20 mg/dL NEGATIVE code = PROU) UA UROBILINOGEN DIPSTICK NORMAL mg/dL NORMAL (test code = URO) UA NITRITE DIPSTICK (test NEGATIVE NEGATIVE code = BLANQUITA) UA LEUKOCYTE ESTERASE NEGATIVE NEGATIVE DIPSTICK (test code = LEUU) UA COMMENT (test code = VOLUME 10-12 ML COMU) URINE SPECIMEN DESCRIPTION Clean Catch (test code = UASPEC) UA WBC (test code = WBCU) < 10 #/HPF 0-10 UA SQUAMOUS CELLS (test code 21 - 40 #/LPF <100 A = SQU) UA CULTURE NEEDED? (test Criteria not met code = UACULT) Indication for culture: Suprapubic PainURINE SOURCE: Clean CatchUA [id number] 18:01:00 Test Item Value Reference Range Interpretation Comments UA RBC (test code = RBCU) None Seen #/hpf NONE SEEN Indication for culture: Suprapubic PainURINE SOURCE: Clean CatchCBC W/AUTO [id number] 18:00:00 Test Item Value Reference Range Interpretation Comments WHITE BLOOD CELL (test 12.13 x10 3/uL 4.80-10.80 H Res ults called to code = WBC) and read back Tavo BELL ;1800, 04/14/19 , D.LAB.LP. RED BLOOD CELL (test 4.54 x10 6/uL 4.2-5.4 N code = RBC) HEMOGLOBIN (test code = 9.7 G/DL 12.0-16.0 L HGB) HEMATOCRIT (test code = 33.5 % 37-47 L HCT) MEAN CELL VOLUME (test 73.8 FL 81-99 L code = MCV) MEAN CELL HGB (test 21.4 PG 27-31 L code = MCH) MEAN CELL HGB 29.0 G/DL 33-37 L CONCENTRATION (test code = MCHC) RED CELL DISTRIBUTION 17.1 % 11.5-14.5 H WIDTH (test code = RDW) PLATELET COUNT (test 410 x10 3/uL 150-450 N code = PLT) MEAN PLATELET VOLUME 8.7 FL 7.4-10.4 N (test code = MPV) NEUTROPHIL % (test code 63.3 % 42-86 N = NT%) IMMATURE GRANULOCYTE % 0.3 % 0.0-2.0 N (test code = IG%) LYMPHOCYTE % (test code 26.3 % 24-44 N = LY%) MONOCYTE % (test code = 7.7 % 0.0-4.0 H MO%) EOSINOPHIL % (test code 2.1 % 0.0-2.7 N = EO%) BASOPHIL % (test code = 0.3 % 0.0-0.5 N BA%) NUCLEATED RBC % (test 0.0 % 0.0-0.0 N code = NRBC%) NEUTROPHIL # (test code 7.68 x10 3/uL 1.8-7.7 N = NT#) IMMATURE GRANULOCYTE # 0.04 x10 3/uL 0.00-0.03 H (test code = IG#) LYMPHOCYTE # (test code 3.19 x10 3/uL 1.0-4.8 N = LY#) MONOCYTE # (test code = 0.93 x10 3/uL 0.0-0.8 H MO#) EOSINOPHIL # (test code 0.25 x10 3/uL 0.0-0.5 N = EO#) BASOPHIL # (test code = 0.04 x10 3/uL 0.0-0.2 N BA#) NUCLEATED RBC # (test 0.0 X10 3/uL 0.0-0.2 N code = NRBC#) UA RFLX MICROSCOPIC [id number] 18:00:00 Test Item Value Reference Range Interpretation Comments UA COLOR (test code = COLU) Light-Yellow YELLOW UA APPEARANCE (test code = CLEAR CLEAR APPU) UA GLUCOSE DIPSTICK (test NORMAL mg/dL NEGATIVE code = DGLUU) UA BILIRUBIN DIPSTICK (test NEGATIVE NEGATIVE code = BILU) UA KETONE DIPSTICK (test code NEGATIVE mg/dL NEGATIVE = KETU) UA SPECIFIC GRAVITY (test 1.037 1.001-1.035 H code = SGU) UA BLOOD DIPSTICK (test code 2+ NEGATIVE A = ЮЛИЯ) UA PH DIPSTICK (test code = 5.5 5.5-7.0 N EDY) UA PROTEIN DIPSTICK (test 20 mg/dL NEGATIVE code = PROU) UA UROBILINOGEN DIPSTICK NORMAL mg/dL NORMAL (test code = URO) UA NITRITE DIPSTICK (test NEGATIVE NEGATIVE code = BLANQUITA) UA LEUKOCYTE ESTERASE NEGATIVE NEGATIVE DIPSTICK (test code = LEUU) UA COMMENT (test code = COMU) VOLUME 10-12 ML URINE SPECIMEN DESCRIPTION Clean Catch (test code = UASPEC) UA WBC (test code = WBCU) #/hpf <10 UA SQUAMOUS CELLS (test code #/lpf <100 = SQU) UA CULTURE NEEDED? (test code = UACULT) Indication for culture: Suprapubic PainURINE SOURCE: Clean CatchUA [id number] 18:00:00 Test Item Value Reference Range Interpretation Comments UA RBC (test code = RBCU) #/hpf NONE SEEN Indication for culture: Suprapubic PainURINE SOURCE: Clean CatchUA RFLX MICROSCOPIC [id number] 18:00:00 Test Item Value Reference Range Interpretation Comments UA COLOR (test code = COLU) Light-Yellow YELLOW UA APPEARANCE (test code = CLEAR CLEAR APPU) UA GLUCOSE DIPSTICK (test NORMAL mg/dL NEGATIVE code = DGLUU) UA BILIRUBIN DIPSTICK (test NEGATIVE NEGATIVE code = BILU) UA KETONE DIPSTICK (test NEGATIVE mg/dL NEGATIVE code = KETU) UA SPECIFIC GRAVITY (test 1.037 1.001-1.035 H code = SGU) UA BLOOD DIPSTICK (test code 2+ NEGATIVE A = ЮЛИЯ) UA PH DIPSTICK (test code = 5.5 5.5-7.0 N EDY) UA PROTEIN DIPSTICK (test 20 mg/dL NEGATIVE code = PROU) UA UROBILINOGEN DIPSTICK NORMAL mg/dL NORMAL (test code = URO) UA NITRITE DIPSTICK (test NEGATIVE NEGATIVE code = BLANQUITA) UA LEUKOCYTE ESTERASE NEGATIVE NEGATIVE DIPSTICK (test code = LEUU) UA COMMENT (test code = VOLUME 10-12 ML COMU) URINE SPECIMEN DESCRIPTION Clean Catch (test code = UASPEC) UA WBC (test code = WBCU) < 10 #/HPF 0-10 UA SQUAMOUS CELLS (test code 21 - 40 #/LPF <100 A = SQU) UA CULTURE NEEDED? (test Criteria not met code = UACULT) Indication for culture: Suprapubic PainURINE SOURCE: Clean CatchUA [id number] 18:00:00 Test Item Value Reference Range Interpretation Comments UA RBC (test code = RBCU) #/hpf NONE SEEN Indication for culture: Suprapubic PainURINE SOURCE: Clean CatchUA RFLX MICROSCOPIC [id number] 18:00:00 Test Item Value Reference Range Interpretation Comments UA COLOR (test code = COLU) Light-Yellow YELLOW UA APPEARANCE (test code = CLEAR CLEAR APPU) UA GLUCOSE DIPSTICK (test NORMAL mg/dL NEGATIVE code = DGLUU) UA BILIRUBIN DIPSTICK (test NEGATIVE NEGATIVE code = BILU) UA KETONE DIPSTICK (test code NEGATIVE mg/dL NEGATIVE = KETU) UA SPECIFIC GRAVITY (test 1.037 1.001-1.035 H code = SGU) UA BLOOD DIPSTICK (test code 2+ NEGATIVE A = ЮЛИЯ) UA PH DIPSTICK (test code = 5.5 5.5-7.0 N EDY) UA PROTEIN DIPSTICK (test 20 mg/dL NEGATIVE code = PROU) UA UROBILINOGEN DIPSTICK NORMAL mg/dL NORMAL (test code = URO) UA NITRITE DIPSTICK (test NEGATIVE NEGATIVE code = BLANQUITA) UA LEUKOCYTE ESTERASE NEGATIVE NEGATIVE DIPSTICK (test code = LEUU) UA COMMENT (test code = COMU) VOLUME 10-12 ML URINE SPECIMEN DESCRIPTION Clean Catch (test code = UASPEC) UA WBC (test code = WBCU) #/hpf <10 UA SQUAMOUS CELLS (test code #/lpf <100 = SQU) UA CULTURE NEEDED? (test code = UACULT) Indication for culture: Suprapubic PainURINE SOURCE: Clean CatchUA [id number] 18:00:00 Test Item Value Reference Range Interpretation Comments UA RBC (test code = RBCU) #/hpf NONE SEEN Indication for culture: Suprapubic PainURINE SOURCE: Clean CatchUR HCG QUAL 2019-04-14 17:47:00 Test Item Value Reference Range Interpretation Comments UR HCG QUAL (test NEGATIVE NEGATIVE False nega tives may occur code = HCGQLU) when levels o f hCGare below 20 mIU/ml. When is still suspec ronald, a new specimenshould be obtained after 48 hours and re-tested.If wa iting 48 hours is not me dically advisable,the t est result should be confi rmed using aquantitative h CG assay. CBC W/AUTO [id number] 18:53:00 Test Item Value Reference Range Interpretation Comments WHITE BLOOD CELL (test 14.42 x10 3/uL 4.80-10.80 H Res ults called to code = WBC) and read back Dg DEAN RN;183 4, 03/19/19, D.LAB.BBR. RED BLOOD CELL (test 4.45 x10 6/uL 4.2-5.4 N code = RBC) HEMOGLOBIN (test code = 9.7 G/DL 12.0-16.0 L HGB) HEMATOCRIT (test code = 32.3 % 37-47 L HCT) MEAN CELL VOLUME (test 72.6 FL 81-99 L code = MCV) MEAN CELL HGB (test 21.8 PG 27-31 L code = MCH) MEAN CELL HGB 30.0 G/DL 33-37 L CONCENTRATION (test code = MCHC) RED CELL DISTRIBUTION 17.9 % 11.5-14.5 H WIDTH (test code = RDW) PLATELET COUNT (test 293 x10 3/uL 150-450 N code = PLT) MEAN PLATELET VOLUME 9.8 FL 7.4-10.4 N (test code = MPV) NEUTROPHIL % (test code 84.9 % 42-86 N = NT%) LYMPHOCYTE % (test code 10.5 % 24-44 L = LY%) MONOCYTE % (test code = 4.1 % 0.0-4.0 H MO%) EOSINOPHIL % (test code 0.3 % 0.0-2.7 N = EO%) BASOPHIL % (test code = 0.2 % 0.0-0.5 N BA%) NEUTROPHIL # (test code 12.23 x10 3/uL 1.8-7.7 H = NT#) LYMPHOCYTE # (test code 1.52 x10 3/uL 1.0-4.8 N = LY#) MONOCYTE # (test code = 0.59 x10 3/uL 0.0-0.8 N MO#) EOSINOPHIL # (test code 0.05 x10 3/uL 0.0-0.5 N = EO#) BASOPHIL # (test code = 0.03 x10 3/uL 0.0-0.2 N BA#) MANUAL DIFF REQUIRED SCAN PLT_RBC TECH REVIEW (test code = MDIFF) RBC [id number] 18:53:00 Test Item Value Reference Range Interpretation Comments HYPOCHROMIA (test code = HYPO) 1+ BASOPHILIC STIPPLING (test code = STP) Slt ANISOCYTOSIS (test code = ANISO) 1+ MICROCYTOSIS (test code = MICR) 2+ PLATELET [id number] 18:53:00 Test Item Value Reference Range Interpretation Comments PLATELET ESTIMATE (test code = PLTEST) Norm ADEQ PROTHROMBIN [id number] 18:51:00 Test Item Value Reference Range Interpretation Comments PROTHROMBIN TIME 10.4 SECONDS 9.3-12.4 N Referen ce Range PATIENT (test code = revised from 9.3-12.4 PTP) as of 01/10/18. INTERNATIONAL NORMAL 1.03 Recomme nded INR range RATIO (test code = (warfarin therapy): INR) 2.0 - 3.0I NR (International Normalized Rati o) should beused w hen interpreting or al anticoaglulant therapy. For at rial fibrillation an d treatment orprevention of deep vein thrombosis . Patients with Palmaz-Fran s tent *: 2 .0 - 3.0 Patients wi th mechanical hear t valve *: 2.5 - 3.5 Patients with flex-stent *: 3.0 - 4.0(*) = sign language interpreter's suggested range Is patient on anticoagulants? No AnticoagulantsTHROMBOPLASTIN TIME PARTIAL 2019-03-19 18:51:00 Test Item Value Reference Range Interpretation Comments THROMBOPLASTIN TIME 18.7 SECONDS 21.8-35.9 L *Therap eutic level PARTIAL (test code = for hep yanique: 1.5 - PTT) 2.5 times the average patient value of 30.0 seconds. The a PTT should not be u sed to evaluate LMW heparin anticoagulant therapy. Reference Range revised from 21.8-35.9 as of 01/10/2018 Is patient on anticoagulants? No AnticoagulantsCOMPREHENSIVE METABOLIC PANEL 2019-03-19 18:47:00 Test Item Value Reference Range Interpretation Comments SODIUM (test code = 138 MMOL/L 133-145 N NA) POTASSIUM (test code = 4.0 MMOL/L 3.6-5.2 N K) CHLORIDE (test code = 102 MMOL/L 100-108 N CL) CARBON DIOXIDE (test 27 MMOL/L 22-32 N code = CO2) GLUCOSE (test code = 102 MG/DL 65-99 H Results of this assay GLU) method may be f alsely depressed orele vated if patient is t aking sulfasalazine. BLOOD UREA NITROGEN 10 MG/DL 6-20 N (test code = BUN) GLOMERULAR FILTRATION 74 58-135 N Report ing units: RATE (test code = GFR) mL/mi n/1.73m\\S\\2 (Modified MDRD Formula) CREATININE (test code 0.84 MG/DL 0.60-1.00 N = CREAT) TOTAL PROTEIN (test 7.6 G/DL 6.4-8.2 N code = PROT) ALBUMIN (test code = 3.7 G/DL 3.4-5.0 N ALB) GLOBULIN (test code = 3.9 G/DL 1.5-3.8 H GLOB) ALBUMIN/GLOBULIN RATIO 0.9 1.1-2.2 L (test code = A/G) CALCIUM (test code = 8.5 MG/DL 8.7-10.5 L CA) BILIRUBIN TOTAL (test 0.3 MG/DL 0.0-1.0 N code = BILT) SGOT/AST (test code = 14 Units/L 15-37 L Result s of this assay AST) method may be f alsely depressed orele vated if patient is t aking sulfasalazine. SGPT/ALT (test code = 15 Units/L 30-65 L Result s of this assay ALT) method may be f alsely depressed orele vated if patient is t aking sulfasalazine. ALKALINE PHOSPHATASE 85 Units/L 50-136 N TOTAL (test code = ALKP) [id number] 18:47:00 Test Item Value Reference Range Interpretation Comments ACETAMINOPHEN (test 3 MCG/ML 10-30 L Acetamin ophen is code = ACET) possibly toxic at levels of: 1. m ore than 150 MCG/ML 4 hours post izaiah stion. 2. more than 5 0 MCG/ML 12 hours post ingestion. [id number] 18:47:00 Test Item Value Reference Range Interpretation Comments SALICYLATE (test code = < 3 MG/DL 0-20 N Refe rence Range: CIELO) Analgesic...... ...... ...... < 10 mg /dl Therapeutic.... ...... ...... 15-20 mg /dl Mild Toxicity....... ...... . > 30 mg/dl Severe Toxicity....... ..... > 60 mg/dl [id number] 18:47:00 Test Item Value Reference Range Interpretation Comments ALCOHOL (test code = 3 MG/DL 0-10 N 0 - 10: Should be ALC) interpreted as NEGATIVE. 11 - 50: None to mild euphoria. 51 - 100: Mild influence on vi brandie and dark adaptation . > 80: Legal into xication; Depression of C NS; Increasing degree of poisoning. > 400: Fatalities repo rted. Results are for medical purposes only a nd not forlegal or emp loyment evaluative purp oses. HCG SERUM [id number] 18:45:00 Test Item Value Reference Range Interpretation Comments HCG SERUM QUAL NEGATIVE NEGATIVE False negativ es may occur (test code = when levels of hCGare below HCGQL) 10 mIU/ml. When is still suspec ronald, a new specimenshould be obtained after 48 hours and re-tested.If wa iting 48 hours is not me dically advisable,the t est result should be confi rmed using aquantitative h CG assay. CBC W/AUTO [id number] 18:35:00 Test Item Value Reference Range Interpretation Comments WHITE BLOOD CELL (test 14.42 x10 3/uL 4.80-10.80 H Res ults called to code = WBC) and read back Dg DEAN RN;183 4, 03/19/19, D.LAB.BBR. RED BLOOD CELL (test 4.45 x10 6/uL 4.2-5.4 N code = RBC) HEMOGLOBIN (test code = 9.7 G/DL 12.0-16.0 L HGB) HEMATOCRIT (test code = 32.3 % 37-47 L HCT) MEAN CELL VOLUME (test 72.6 FL 81-99 L code = MCV) MEAN CELL HGB (test 21.8 PG 27-31 L code = MCH) MEAN CELL HGB 30.0 G/DL 33-37 L CONCENTRATION (test code = MCHC) RED CELL DISTRIBUTION 17.9 % 11.5-14.5 H WIDTH (test code = RDW) PLATELET COUNT (test 293 x10 3/uL 150-450 N code = PLT) MEAN PLATELET VOLUME 9.8 FL 7.4-10.4 N (test code = MPV) NEUTROPHIL % (test code 84.9 % 42-86 N = NT%) LYMPHOCYTE % (test code 10.5 % 24-44 L = LY%) MONOCYTE % (test code = 4.1 % 0.0-4.0 H MO%) EOSINOPHIL % (test code 0.3 % 0.0-2.7 N = EO%) BASOPHIL % (test code = 0.2 % 0.0-0.5 N BA%) NEUTROPHIL # (test code 12.23 x10 3/uL 1.8-7.7 H = NT#) LYMPHOCYTE # (test code 1.52 x10 3/uL 1.0-4.8 N = LY#) MONOCYTE # (test code = 0.59 x10 3/uL 0.0-0.8 N MO#) EOSINOPHIL # (test code 0.05 x10 3/uL 0.0-0.5 N = EO#) BASOPHIL # (test code = 0.03 x10 3/uL 0.0-0.2 N BA#) MANUAL DIFF REQUIRED SCAN PLT_RBC TECH REVIEW (test code = MDIFF) RBC [id number] 18:35:00 Test Item Value Reference Range Interpretation Comments RBC MORPHOLOGY COMMENT (test code = RBCM) PLATELET [id number] 18:35:00 Test Item Value Reference Range Interpretation Comments PLATELET ESTIMATE (test code = PLTEST) ADEQ CBC W/AUTO [id number] 18:35:00 Test Item Value Reference Range Interpretation Comments WHITE BLOOD CELL (test 14.42 x10 3/uL 4.80-10.80 H Res ults called to code = WBC) and read back Dg DEAN RN;183 4, 03/19/19, D.LAB.BBR. RED BLOOD CELL (test 4.45 x10 6/uL 4.2-5.4 N code = RBC) HEMOGLOBIN (test code = 9.7 G/DL 12.0-16.0 L HGB) HEMATOCRIT (test code = 32.3 % 37-47 L HCT) MEAN CELL VOLUME (test 72.6 FL 81-99 L code = MCV) MEAN CELL HGB (test 21.8 PG 27-31 L code = MCH) MEAN CELL HGB 30.0 G/DL 33-37 L CONCENTRATION (test code = MCHC) RED CELL DISTRIBUTION 17.9 % 11.5-14.5 H WIDTH (test code = RDW) PLATELET COUNT (test 293 x10 3/uL 150-450 N code = PLT) MEAN PLATELET VOLUME 9.8 FL 7.4-10.4 N (test code = MPV) NEUTROPHIL % (test code 84.9 % 42-86 N = NT%) LYMPHOCYTE % (test code 10.5 % 24-44 L = LY%) MONOCYTE % (test code = 4.1 % 0.0-4.0 H MO%) EOSINOPHIL % (test code 0.3 % 0.0-2.7 N = EO%) BASOPHIL % (test code = 0.2 % 0.0-0.5 N BA%) NEUTROPHIL # (test code 12.23 x10 3/uL 1.8-7.7 H = NT#) LYMPHOCYTE # (test code 1.52 x10 3/uL 1.0-4.8 N = LY#) MONOCYTE # (test code = 0.59 x10 3/uL 0.0-0.8 N MO#) EOSINOPHIL # (test code 0.05 x10 3/uL 0.0-0.5 N = EO#) BASOPHIL # (test code = 0.03 x10 3/uL 0.0-0.2 N BA#) MANUAL DIFF REQUIRED SCAN PLT_RBC TECH REVIEW (test code = MDIFF) RBC [id number] 18:35:00 Test Item Value Reference Range Interpretation Comments RBC MORPHOLOGY COMMENT (test code = RBCM) PLATELET [id number] 18:35:00 Test Item Value Reference Range Interpretation Comments PLATELET ESTIMATE (test code = PLTEST) ADEQ [id number] 11:48:00 Test Item Value Reference Range Interpretation Comments GLUBED (test code = 110 MG/DL 65-99 H Performe d by certified GLUBED) continuous vulcanizing machine operator at [facility] [id number] 06:39:00 Test Item Value Reference Range Interpretation Comments GLUBED (test code = 91 MG/DL 65-99 N Performe d by certified GLUBED) continuous vulcanizing machine operator at [facility] CBC W/AUTO [id number] 04:06:00 Test Item Value Reference Range Interpretation Comments WHITE BLOOD CELL (test code = 10.54 x10 3/uL 4.80-10.80 N WBC) RED BLOOD CELL (test code = 4.03 x10 6/uL 4.2-5.4 L RBC) HEMOGLOBIN (test code = HGB) 8.5 G/DL 12.0-16.0 L HEMATOCRIT (test code = HCT) 29.0 % 37-47 L MEAN CELL VOLUME (test code = 72.0 FL 81-99 L MCV) MEAN CELL HGB (test code = 21.1 PG 27-31 L MCH) MEAN CELL HGB CONCENTRATION 29.3 G/DL 33-37 L (test code = MCHC) RED CELL DISTRIBUTION WIDTH 18.1 % 11.5-14.5 H (test code = RDW) PLATELET COUNT (test code = 312 x10 3/uL 150-450 N PLT) MEAN PLATELET VOLUME (test 9.1 FL 7.4-10.4 N code = MPV) NEUTROPHIL % (test code = NT%) 66.7 % 42-86 N IMMATURE GRANULOCYTE % (test 0.4 % 0.0-2.0 N code = IG%) LYMPHOCYTE % (test code = LY%) 22.8 % 24-44 L MONOCYTE % (test code = MO%) 7.9 % 0.0-4.0 H EOSINOPHIL % (test code = EO%) 2.0 % 0.0-2.7 N BASOPHIL % (test code = BA%) 0.2 % 0.0-0.5 N NUCLEATED RBC % (test code = 0.0 % 0.0-0.0 N NRBC%) NEUTROPHIL # (test code = NT#) 7.04 x10 3/uL 1.8-7.7 N IMMATURE GRANULOCYTE # (test 0.04 x10 3/uL 0.00-0.03 H code = IG#) LYMPHOCYTE # (test code = LY#) 2.40 x10 3/uL 1.0-4.8 N MONOCYTE # (test code = MO#) 0.83 x10 3/uL 0.0-0.8 H EOSINOPHIL # (test code = EO#) 0.21 x10 3/uL 0.0-0.5 N BASOPHIL # (test code = BA#) 0.02 x10 3/uL 0.0-0.2 N NUCLEATED RBC # (test code = 0.0 X10 3/uL 0.0-0.2 N NRBC#) BASIC METABOLIC [id number] 03:40:00 Test Item Value Reference Range Interpretation Comments SODIUM (test code = 137 MMOL/L 133-145 N NA) POTASSIUM (test code = 4.0 MMOL/L 3.6-5.2 N K) CHLORIDE (test code = 103 MMOL/L 100-108 N CL) CARBON DIOXIDE (test 28 MMOL/L 22-32 N code = CO2) GLUCOSE (test code = 89 MG/DL 65-99 N Results of this assay GLU) method may be f alsely depressed orele vated if patient is t aking sulfasalazine. BLOOD UREA NITROGEN 11 MG/DL 6-20 N (test code = BUN) GLOMERULAR FILTRATION 82 58-135 N Report ing units: RATE (test code = GFR) mL/mi n/1.73m\\S\\2 (Modified MDRD Formula) CREATININE (test code 0.77 MG/DL 0.60-1.00 N = CREAT) CALCIUM (test code = 8.4 MG/DL 8.7-10.5 L CA) [id number] 22:01:00 Test Item Value Reference Range Interpretation Comments GLUBED (test code = 73 MG/DL 65-99 N Performe d by certified GLUBED) continuous vulcanizing machine operator at [facility] [id number] 21:08:00 Test Item Value Reference Range Interpretation Comments GLUBED (test code = 112 MG/DL 65-99 H Performe d by certified GLUBED) continuous vulcanizing machine operator at [facility] [id number] 21:08:00 Test Item Value Reference Range Interpretation Comments GLUBED (test code = 65 MG/DL 65-99 N Performe d by certified GLUBED) continuous vulcanizing machine operator at [facility] [id number] 17:07:00 Test Item Value Reference Range Interpretation Comments GLUBED (test code = 121 MG/DL 65-99 H Performe d by certified GLUBED) continuous vulcanizing machine operator at [facility] [id number] 06:18:00 Test Item Value Reference Range Interpretation Comments GLUBED (test code = 95 MG/DL 65-99 N Performe d by certified GLUBED) continuous vulcanizing machine operator at [facility] BASIC METABOLIC [id number] 03:38:00 Test Item Value Reference Range Interpretation Comments SODIUM (test code = 137 MMOL/L 133-145 N NA) POTASSIUM (test code = 3.7 MMOL/L 3.6-5.2 N K) CHLORIDE (test code = 103 MMOL/L 100-108 N CL) CARBON DIOXIDE (test 29 MMOL/L 22-32 N code = CO2) GLUCOSE (test code = 103 MG/DL 65-99 H Results of this assay GLU) method may be f alsely depressed orele vated if patient is t aking sulfasalazine. BLOOD UREA NITROGEN 14 MG/DL 6-20 N (test code = BUN) GLOMERULAR FILTRATION 67 58-135 N Report ing units: RATE (test code = GFR) mL/mi n/1.73m\\S\\2 (Modified MDRD Formula) CREATININE (test code 0.91 MG/DL 0.60-1.00 N = CREAT) CALCIUM (test code = 7.8 MG/DL 8.7-10.5 L CA) CBC W/AUTO [id number] 03:23:00 Test Item Value Reference Range Interpretation Comments WHITE BLOOD CELL (test code = 10.85 x10 3/uL 4.80-10.80 H WBC) RED BLOOD CELL (test code = 4.12 x10 6/uL 4.2-5.4 L RBC) HEMOGLOBIN (test code = HGB) 8.4 G/DL 12.0-16.0 L HEMATOCRIT (test code = HCT) 29.7 % 37-47 L MEAN CELL VOLUME (test code = 72.1 FL 81-99 L MCV) MEAN CELL HGB (test code = 20.4 PG 27-31 L MCH) MEAN CELL HGB CONCENTRATION 28.3 G/DL 33-37 L (test code = MCHC) RED CELL DISTRIBUTION WIDTH 18.1 % 11.5-14.5 H (test code = RDW) PLATELET COUNT (test code = 325 x10 3/uL 150-450 N PLT) MEAN PLATELET VOLUME (test 8.6 FL 7.4-10.4 N code = MPV) NEUTROPHIL % (test code = NT%) 60.4 % 42-86 N IMMATURE GRANULOCYTE % (test 0.8 % 0.0-2.0 N code = IG%) LYMPHOCYTE % (test code = LY%) 28.2 % 24-44 N MONOCYTE % (test code = MO%) 8.2 % 0.0-4.0 H EOSINOPHIL % (test code = EO%) 2.1 % 0.0-2.7 N BASOPHIL % (test code = BA%) 0.3 % 0.0-0.5 N NUCLEATED RBC % (test code = 0.0 % 0.0-0.0 N NRBC%) NEUTROPHIL # (test code = NT#) 6.55 x10 3/uL 1.8-7.7 N IMMATURE GRANULOCYTE # (test 0.09 x10 3/uL 0.00-0.03 H code = IG#) LYMPHOCYTE # (test code = LY#) 3.06 x10 3/uL 1.0-4.8 N MONOCYTE # (test code = MO#) 0.89 x10 3/uL 0.0-0.8 H EOSINOPHIL # (test code = EO#) 0.23 x10 3/uL 0.0-0.5 N BASOPHIL # (test code = BA#) 0.03 x10 3/uL 0.0-0.2 N NUCLEATED RBC # (test code = 0.0 X10 3/uL 0.0-0.2 N NRBC#) [id number] 20:59:00 Test Item Value Reference Range Interpretation Comments GLUBED (test code = 131 MG/DL 65-99 H Performe d by certified GLUBED) continuous vulcanizing machine operator at [facility] [id number] 17:19:00 Test Item Value Reference Range Interpretation Comments GLUBED (test code = 71 MG/DL 65-99 N Performe d by certified GLUBED) continuous vulcanizing machine operator at [facility] [id number] 17:17:00 Test Item Value Reference Range Interpretation Comments GLUBED (test code = 99 MG/DL 65-99 N Performe d by certified GLUBED) continuous vulcanizing machine operator at [facility] [id number] 11:27:00 Test Item Value Reference Range Interpretation Comments GLUBED (test code = 137 MG/DL 65-99 H Performe d by certified GLUBED) continuous vulcanizing machine operator at [facility] [id number] 06:28:00 Test Item Value Reference Range Interpretation Comments GLUBED (test code = 100 MG/DL 65-99 H Performe d by certified GLUBED) continuous vulcanizing machine operator at [facility] CBC W/AUTO [id number] 04:31:00 Test Item Value Reference Range Interpretation Comments WHITE BLOOD CELL (test code = 12.66 x10 3/uL 4.80-10.80 H WBC) RED BLOOD CELL (test code = 4.09 x10 6/uL 4.2-5.4 L RBC) HEMOGLOBIN (test code = HGB) 8.5 G/DL 12.0-16.0 L HEMATOCRIT (test code = HCT) 29.6 % 37-47 L MEAN CELL VOLUME (test code = 72.4 FL 81-99 L MCV) MEAN CELL HGB (test code = 20.8 PG 27-31 L MCH) MEAN CELL HGB CONCENTRATION 28.7 G/DL 33-37 L (test code = MCHC) RED CELL DISTRIBUTION WIDTH 18.3 % 11.5-14.5 H (test code = RDW) PLATELET COUNT (test code = 372 x10 3/uL 150-450 N PLT) MEAN PLATELET VOLUME (test 8.9 FL 7.4-10.4 N code = MPV) NEUTROPHIL % (test code = NT%) 66.0 % 42-86 N IMMATURE GRANULOCYTE % (test 0.9 % 0.0-2.0 N code = IG%) LYMPHOCYTE % (test code = LY%) 23.4 % 24-44 L MONOCYTE % (test code = MO%) 8.8 % 0.0-4.0 H EOSINOPHIL % (test code = EO%) 0.7 % 0.0-2.7 N BASOPHIL % (test code = BA%) 0.2 % 0.0-0.5 N NUCLEATED RBC % (test code = 0.0 % 0.0-0.0 N NRBC%) NEUTROPHIL # (test code = NT#) 8.37 x10 3/uL 1.8-7.7 H IMMATURE GRANULOCYTE # (test 0.11 x10 3/uL 0.00-0.03 H code = IG#) LYMPHOCYTE # (test code = LY#) 2.96 x10 3/uL 1.0-4.8 N MONOCYTE # (test code = MO#) 1.11 x10 3/uL 0.0-0.8 H EOSINOPHIL # (test code = EO#) 0.09 x10 3/uL 0.0-0.5 N BASOPHIL # (test code = BA#) 0.02 x10 3/uL 0.0-0.2 N NUCLEATED RBC # (test code = 0.0 X10 3/uL 0.0-0.2 N NRBC#) BASIC METABOLIC [id number] 04:22:00 Test Item Value Reference Range Interpretation Comments SODIUM (test code = 139 MMOL/L 133-145 N NA) POTASSIUM (test code = 3.9 MMOL/L 3.6-5.2 N K) CHLORIDE (test code = 104 MMOL/L 100-108 N CL) CARBON DIOXIDE (test 30 MMOL/L 22-32 N code = CO2) GLUCOSE (test code = 127 MG/DL 65-99 H Results of this assay GLU) method may be f alsely depressed orele vated if patient is t aking sulfasalazine. BLOOD UREA NITROGEN 18 MG/DL 6-20 N (test code = BUN) GLOMERULAR FILTRATION 77 58-135 N Report ing units: RATE (test code = GFR) mL/mi n/1.73m\\S\\2 (Modified MDRD Formula) CREATININE (test code 0.81 MG/DL 0.60-1.00 N = CREAT) CALCIUM (test code = 8.0 MG/DL 8.7-10.5 L CA) [id number] 21:30:00 Test Item Value Reference Range Interpretation Comments GLUBED (test code = 154 MG/DL 65-99 H Performe d by certified GLUBED) continuous vulcanizing machine operator at [facility] [id number] 21:30:00 Test Item Value Reference Range Interpretation Comments GLUBED (test code = 108 MG/DL 65-99 H Performe d by certified GLUBED) continuous vulcanizing machine operator at [facility] BASIC METABOLIC [id number] 17:41:00 Test Item Value Reference Range Interpretation Comments SODIUM (test code = 137 MMOL/L 133-145 N NA) POTASSIUM (test code = 4.6 MMOL/L 3.6-5.2 N K) CHLORIDE (test code = 102 MMOL/L 100-108 N CL) CARBON DIOXIDE (test 30 MMOL/L 22-32 N code = CO2) GLUCOSE (test code = 114 MG/DL 65-99 H Results of this assay GLU) method may be f alsely depressed orele vated if patient is t aking sulfasalazine. BLOOD UREA NITROGEN 15 MG/DL 6-20 N (test code = BUN) GLOMERULAR FILTRATION 74 58-135 N Report ing units: RATE (test code = GFR) mL/mi n/1.73m\\S\\2 (Modified MDRD Formula) CREATININE (test code 0.84 MG/DL 0.60-1.00 N = CREAT) CALCIUM (test code = 8.4 MG/DL 8.7-10.5 L CA) PT REFUSAL OF LABDRAW WANTS TO WAIT FOR MIDLINE TO BE PLAC[facility] [id number] 17:19:00 Test Item Value Reference Range Interpretation Comments WHITE BLOOD CELL (test code = 10.78 x10 3/uL 4.80-10.80 N WBC) RED BLOOD CELL (test code = 4.41 x10 6/uL 4.2-5.4 N RBC) HEMOGLOBIN (test code = HGB) 9.1 G/DL 12.0-16.0 L HEMATOCRIT (test code = HCT) 32.0 % 37-47 L MEAN CELL VOLUME (test code = 72.6 FL 81-99 L MCV) MEAN CELL HGB (test code = 20.6 PG 27-31 L MCH) MEAN CELL HGB CONCENTRATION 28.4 G/DL 33-37 L (test code = MCHC) RED CELL DISTRIBUTION WIDTH 18.2 % 11.5-14.5 H (test code = RDW) PLATELET COUNT (test code = 351 x10 3/uL 150-450 N PLT) MEAN PLATELET VOLUME (test 8.4 FL 7.4-10.4 N code = MPV) NEUTROPHIL % (test code = NT%) 84.9 % 42-86 N IMMATURE GRANULOCYTE % (test 1.3 % 0.0-2.0 N code = IG%) LYMPHOCYTE % (test code = LY%) 11.0 % 24-44 L MONOCYTE % (test code = MO%) 2.6 % 0.0-4.0 N EOSINOPHIL % (test code = EO%) 0.1 % 0.0-2.7 N BASOPHIL % (test code = BA%) 0.1 % 0.0-0.5 N NUCLEATED RBC % (test code = 0.0 % 0.0-0.0 N NRBC%) NEUTROPHIL # (test code = NT#) 9.15 x10 3/uL 1.8-7.7 H IMMATURE GRANULOCYTE # (test 0.14 x10 3/uL 0.00-0.03 H code = IG#) LYMPHOCYTE # (test code = LY#) 1.19 x10 3/uL 1.0-4.8 N MONOCYTE # (test code = MO#) 0.28 x10 3/uL 0.0-0.8 N EOSINOPHIL # (test code = EO#) 0.01 x10 3/uL 0.0-0.5 N BASOPHIL # (test code = BA#) 0.01 x10 3/uL 0.0-0.2 N NUCLEATED RBC # (test code = 0.0 X10 3/uL 0.0-0.2 N NRBC#) [id number] 11:57:00 Test Item Value Reference Range Interpretation Comments MARINO (test code = 98 MG/DL 65-99 N Performe d by certified GLUBED) continuous vulcanizing machine operator at [facility] CYTOLOGY NON [id number] 09:36:00 RUN DATE: 09/05/18 [place] [facility] LAB LIVE PAGE 1 RUN TIME: 09 Specimen Inquiry RUN USER: INTERFACE PATIENT: KAREEN LOTT LOC: D.D3W U #: [id number] AGE/SX: 43/F ROOM: [facility] RE08/30/18[facility] DR: Carolina Solorio MD : 75 BED: 1 DIS: STATUS: ADM IN TLOC: SPEC #: [id number] RECD: 08/31/18-1327 STATUS: GRACIELA ORDAZ #: [id number] KEAGAN: 08/31/18-[address] [facility] [address]: Hilton Wild MD ENTERED: 08/31/18-1341 SP TYPE: CYTO NG OTHR DR: Eladio Queen Jr, MD ORDERED: CYTOSPIN, FNAREPORT, PATHGM4/2 CODES: [id number] - BRONCHUS, NOS COPIES TO: Eladio Queen Jr, MD [address] [facility] [address] [place], [place] [id number] Hilton Wild MD [address] [address] [place] [address] HISTOLOGY: TISSUE ID BLK PCS JOLENE LEV PROCEDURE DISPOSITION _ ____ ___ ___ ___ BRONCHUS, NOS A BRONCHUS, NOS B 1 BRONCHUS, NOS C 1 2 S A-H E S A-H E S A-H E S A-H E S A-PAP S A-PAP S A-PAP S A-PAP S B-H E S B-PAP 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 BRONCHUS, NOS - RML BRUSHINGS 8 SLIDES IN 95%ALC B. BRONCHUS, NOS - RML WASHINGS REC'V 20CC RED CLOUDY FLUID C. BRONCHUS, NOS - RML TISSUE BIOPSY CONTINUED ON NEXT PAGE RUN DATE: 09/05/18 [facility] LAB LIVE PAGE 2 RUN TIME: 36 Specimen Inquiry RUN USER: INTERFACE SPEC #: [id number]: KAREEN LOTT #[id number] (Continued) CLINICAL HISTORY BRONCHIECTASIS FINAL DIAGNOSIS A. RIGHT MIDDLE LOBE BRONCHIAL BRUSHING: NEGATIVE FOR MALIGNANCY. B. RIGHT MIDDLE LOBE BRONCHIAL WASHING: NEGATIVE FOR MALIGNANCY, NEGATIVE FOR PNEUMOCYSTIS TYPE ORGANISMS ON SILVER STAIN. C. RIGHT MIDDLE LOBE BRONCHIAL BIOPSY: NEGATIVE FOR MALIGNANCY. JOB#:[id number] GROSS DESCRIPTION The case is received in three parts labeled with the patient's name and source. Specimen A is designated "right middle lobe brushings" and consists of eight slides in 95% alcohol, four H E, four PAP. Specimen B is designated "right middle lobe washings" and consists of 20 cc of red cloudy fluid which is submitted for processing. One H E, one PAP, one cell block. Specimen C is received in formalin designated "right middle lobe" and consists of multiple irregular waters-brown to red-waters soft tissue fragments measuring 0.1 - 0.3 cm in greatest dimensions, submitted in toto in block C. JOB#: [id number] MICROSCOPIC DESCRIPTION Examination of the stained smear preparations from the A specimen reveal predominantly bronchial epithelial cellswith some blood elements and histiocytes. No malignant cells are seen. Examination of the cytospin and cell block material from the B specimen reveals bronchial epithelial cells, histiocytes, neutrophils and blood elements. No malignant cells are seen. A GMS stain is performed on the cell blockand is negative for Pneumocystis type organisms. Sections and step sections of the C specimen show fibroconnective tissue containing bronchial epithelium. No malignancy is seen. JOB#: [id number] SPECIMEN PROCESSING * PROCESSING PERFORMED AT [email or web address] CONTINUED ON NEXT PAGE RUN DATE: 09/05/18 [facility] LAB LIVE PAGE 3 RUN TIME: 935 Specimen Inquiry RUN USER: INTERFACE SPEC #: [id number] PATIENT: KAREEN LOTT #[id number] (Continued) SURGERY INFORMATION Surgery date 08/31/18 Surgeon(s): Signed SIGNATURE ON Michael Ernst 09/05/18 0936 END OF REPORT [id number] 06:13:00 Test Item Value Reference Range Interpretation Comments GLUBED (test code = 93 MG/DL 65-99 N Performe d by certified GLUBED) continuous vulcanizing machine operator at [facility] [id number] 06:13:00 Test Item Value Reference Range Interpretation Comments GLUBED (test code = 91 MG/DL 65-99 N Performe d by certified GLUBED) continuous vulcanizing machine operator at [facility] IMMUNOGLOBULIN [id number] 03:07:00 Test Item Value Reference Range Interpretation Comments IMMUNOGLOBULIN E (test 148 IU/mL 6-495 Perfo rmed At: BN code = IGE) [address] [id number] ra Ame T[place]OCO Ph:[id number] 20:33:00 Test Item Value Reference Range Interpretation Comments GLUBED (test code = 128 MG/DL 65-99 H Performe d by certified GLUBED) continuous vulcanizing machine operator at [facility] [id number] 17:41:00 Test Item Value Reference Range Interpretation Comments GLUBED (test code = 128 MG/DL 65-99 H Performe d by certified GLUBED) continuous vulcanizing machine operator at [facility] CYSTIC FIBROSIS [id number] 16:08:00 Test Item Value Reference Range Interpretation Comments CYSTIC FIBROSIS Comment: () RESULTS: POS ITIVE for one DNA (test code = copy of the [id number] CYSTICFIB) mutationINTERPR ETATION:[facility] provided revealed one CF mutation;theref ore, 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 Thisr esult should be interpreted in the context of the clinicalindicat ion.COMMENTS: Genetic investment counselor ing is recommended to discuss the potentialclinic al and/or reproductive im plications of this result,as well as recommendations for testing other family me mbersand, when applicable , this individual's pa rtner. Thedetection ra te varies with ethnicity, and the presenceof a se cond, undetected muta tion in the CF gene cannot beruled out.Mutation De tection Detection rates are based on mutationRates a [place] Ethnic frequencies in patients affected withGr oups cystic fibr osis. Among individuals with an atypi royce or mild presentation (e.g. congen ital absence of the vas deferens, panc reatitis) detection rates may vary from those provided here: Detection Ethnicity RateAs hkenazi 97%Jewi shCaucasian 90%(non-Hispani c)-Monserrat rican 69 % 73%A brian 55%Thi s interpretation is based on the clinical an d familyrelations hip information pro vided and the currentundersta nding of the molecular yash ics of this condition.MUTAT IONS ANALYZED:G85E V520F P4295B 2183AA to YE803Z G5 42X S9780D 2184del SS484H S549N 394del TT 2789+5G to AR34 7H S549R 621+1G to T 3120+1G to AR34 7P G551D 711+1G to T 4255puaOC170W R553X 1078delT 3849+10kbC to WHgfwoH722 R5 60T 1717-1G to A 7273trkIUnyxiW1 08 N9203S 1898+1G to A 3905insTMETHODS /LIMITATIONS: DNA is isolated from the sample and test ed for the 32 CFmutations on the [place] [employer] ([employer]Regio ns of the CFTR gene are a mplified enzymatically a ndsubjected to a solution-p hase multiplex allele-specific primer extension with subsequent hybridization t o a beadarray and fluorescenc e detection. Polymorphisms F 508C,I506V and I507V are i ncluded in this panel to r ule outfalse positive deltaF 508 homozygotes. R eflex testing of5T is include d in the panel for R117H interpretation. False positive or neg ative results may occur for r easonsthat include genetic variants, blood transfusi ons, bonemarrow collier splantation, erroneous repre sentation offamily relati onships or contamination o f a samplewith mate rnal cells.REFERENCE S:1. Updates on Carrier Scre ening for Cystic Fibrosis . (2011) Am J Ob Gynecol 117(4):1028-103 12. Jakub et al. (2004) G enet Med 6:387-913. soumya Dickens al. (2002) Yash Me d 4:379-3914. Preconception a nd carrier screeni ng for cystic fibrosis: (25 02)ACOG.ACMG publicationResu lts Released By: Yayo barrios M.D., MedicalDi aayush Report Released By: Nivia Brown, MS, CGC, Geneti cCounselor CYSTIC FIBROSIS Comment () The assay pr ovides COMMENT (test information in tended to be code = CYSFCOM) used for car rierscreening in adults of repro ductive age, as an aid in newbornscreenin g, and as a confirmatory te st for another medical lyestablished diagnosis in ne wborns and children. The t est is notindicated fo r use in diagnosti c testing, pre-implantatio nscreening, or for any paul d-alone diagnostic purp oses withoutconfirma tion by another medical ly established gay gnostic productor procedure.Perfo rmed At: [facility] [id number] [place], [place] [id number] michael Jackson MD Ph:[phone] PROCALCITONIN (PCT)2018-09-04 15:48:00 Test Item Value Reference Range Interpretation Comments PROCALCITONIN (PCT) (test code = < 0.05 ng/mL 0.00-0.50 N PROCAL) ANTINUCLEAR ANTIBODIES [id number] 12:09:00 Test Item Value Reference Range Interpretation Comments CURT SCREEN (test code Negative () = ANASCR) Neg ative <1:80 Borderline 1:8 0 Positive >1:80Performed At: [facility] [id number] katrina Barnes MD [phone] RHEUMATOID FACTOR [id number] 11:09:00 Test Item Value Reference Range Interpretation Comments RHEUMATOID FACTOR SCREEN (test code NEGATIVE NEGATIVE = RA) VANCOMYCIN [id number] 09:47:00 Test Item Value Reference Range Interpretation Comments VANCOMYCIN RANDOM 6.9 MCG/ML No Ref Range No referen ce range (test code = VANCO) for rand om specimen collection. HIV 1 2 COMBO AG/AB [id number] 07:14:00 Test Item Value Reference Range Interpretation Comments HIV 1 2 COMBO AG/AB Non Reactive Non Reactive Performe d At: HD SCREEN (test code = [facility] [id number]) [facility], [place] [id number] ava Barnes MD Ph:[phone] HIV 4th Generat ion Detects HIV-spe cific antibodies and HIV-p24 antigen. [id number] 06:31:00 Test Item Value Reference Range Interpretation Comments GLUBED (test code = 86 MG/DL 65-99 N Performe d by certified GLUBED) continuous vulcanizing machine operator at [facility] UA RFLX MICROSCOPIC [id number] 04:28:00 Test Item Value Reference Range Interpretation Comments UA COLOR (test code = COLU) YELLOW YELLOW UA APPEARANCE (test code = CLEAR CLEAR APPU) UA GLUCOSE DIPSTICK (test NEGATIVE mg/dL NEGATIVE code = DGLUU) UA BILIRUBIN DIPSTICK (test NEGATIVE NEGATIVE code = BILU) UA KETONE DIPSTICK (test NEGATIVE mg/dL NEGATIVE code = KETU) UA SPECIFIC GRAVITY (test 1.020 1.001-1.035 N code = SGU) UA BLOOD DIPSTICK (test code NEGATIVE NEGATIVE = ЮЛИЯ) UA PH DIPSTICK (test code = 5.0 5.5-7.0 L EDY) UA PROTEIN DIPSTICK (test NEGATIVE mg/dL NEGATIVE code = PROU) UA UROBILINOGEN DIPSTICK NORMAL mg/dL NORMAL (test code = URO) UA NITRITE DIPSTICK (test NEGATIVE NEGATIVE code = BLANQUITA) UA LEUKOCYTE ESTERASE NEGATIVE NEGATIVE DIPSTICK (test code = LEUU) UA COMMENT (test code = VOLUME 10-12 ML COMU) URINE SPECIMEN DESCRIPTION Clean Catch (test code = UASPEC) UA WBC (test code = WBCU) < 10 #/hpf <10 UA SQUAMOUS CELLS (test code < 100 #/lpf <100 = SQU) UA CULTURE NEEDED? (test Criteria not met code = UACULT) Indication for culture: Dysuria/FrequencyURINE SOURCE: Clean CatchUA RFLX MICROSCOPIC [id number] 04:26:00 Test Item Value Reference Range Interpretation Comments UA COLOR (test code = COLU) YELLOW YELLOW UA APPEARANCE (test code = CLEAR CLEAR APPU) UA GLUCOSE DIPSTICK (test NEGATIVE mg/dL NEGATIVE code = DGLUU) UA BILIRUBIN DIPSTICK (test NEGATIVE NEGATIVE code = BILU) UA KETONE DIPSTICK (test code NEGATIVE mg/dL NEGATIVE = KETU) UA SPECIFIC GRAVITY (test 1.020 1.001-1.035 N code = SGU) UA BLOOD DIPSTICK (test code NEGATIVE NEGATIVE = ЮЛИЯ) UA PH DIPSTICK (test code = 5.0 5.5-7.0 L EDY) UA PROTEIN DIPSTICK (test NEGATIVE mg/dL NEGATIVE code = PROU) UA UROBILINOGEN DIPSTICK NORMAL mg/dL NORMAL (test code = URO) UA NITRITE DIPSTICK (test NEGATIVE NEGATIVE code = BLANQUITA) UA LEUKOCYTE ESTERASE NEGATIVE NEGATIVE DIPSTICK (test code = LEUU) UA COMMENT (test code = COMU) VOLUME 10-12 ML URINE SPECIMEN DESCRIPTION Clean Catch (test code = UASPEC) UA WBC (test code = WBCU) #/hpf <10 UA SQUAMOUS CELLS (test code #/lpf <100 = SQU) UA CULTURE NEEDED? (test code = UACULT) Indication for culture: Dysuria/FrequencyURINE SOURCE: Clean CatchBASIC METABOLIC [id number] 04:05:00 Test Item Value Reference Range Interpretation Comments SODIUM (test code = 138 MMOL/L 133-145 N NA) POTASSIUM (test code = 3.8 MMOL/L 3.6-5.2 N K) CHLORIDE (test code = 104 MMOL/L 100-108 N CL) CARBON DIOXIDE (test 28 MMOL/L 22-32 N code = CO2) GLUCOSE (test code = 104 MG/DL 65-99 H Results of this assay GLU) method may be f alsely depressed orele vated if patient is t aking sulfasalazine. BLOOD UREA NITROGEN 19 MG/DL 6-20 N (test code = BUN) GLOMERULAR FILTRATION 75 58-135 N Report ing units: RATE (test code = GFR) mL/mi n/1.73m\\S\\2 (Modified MDRD Formula) CREATININE (test code 0.83 MG/DL 0.60-1.00 N = CREAT) CALCIUM (test code = 8.7 MG/DL 8.7-10.5 N CA) CBC W/AUTO [id number] 03:37:00 Test Item Value Reference Range Interpretation Comments WHITE BLOOD CELL (test code = 20.55 x10 3/uL 4.80-10.80 H WBC) RED BLOOD CELL (test code = 4.67 x10 6/uL 4.2-5.4 N RBC) HEMOGLOBIN (test code = HGB) 9.8 G/DL 12.0-16.0 L HEMATOCRIT (test code = HCT) 33.5 % 37-47 L MEAN CELL VOLUME (test code = 71.7 FL 81-99 L MCV) MEAN CELL HGB (test code = 21.0 PG 27-31 L MCH) MEAN CELL HGB CONCENTRATION 29.3 G/DL 33-37 L (test code = MCHC) RED CELL DISTRIBUTION WIDTH 18.4 % 11.5-14.5 H (test code = RDW) PLATELET COUNT (test code = 397 x10 3/uL 150-450 N PLT) MEAN PLATELET VOLUME (test 8.8 FL 7.4-10.4 N code = MPV) NEUTROPHIL % (test code = NT%) 77.0 % 42-86 N IMMATURE GRANULOCYTE % (test 0.8 % 0.0-2.0 N code = IG%) LYMPHOCYTE % (test code = LY%) 15.9 % 24-44 L MONOCYTE % (test code = MO%) 5.7 % 0.0-4.0 H EOSINOPHIL % (test code = EO%) 0.5 % 0.0-2.7 N BASOPHIL % (test code = BA%) 0.1 % 0.0-0.5 N NUCLEATED RBC % (test code = 0.0 % 0.0-0.0 N NRBC%) NEUTROPHIL # (test code = NT#) 15.79 x10 3/uL 1.8-7.7 H IMMATURE GRANULOCYTE # (test 0.17 x10 3/uL 0.00-0.03 H code = IG#) LYMPHOCYTE # (test code = LY#) 3.27 x10 3/uL 1.0-4.8 N MONOCYTE # (test code = MO#) 1.18 x10 3/uL 0.0-0.8 H EOSINOPHIL # (test code = EO#) 0.11 x10 3/uL 0.0-0.5 N BASOPHIL # (test code = BA#) 0.03 x10 3/uL 0.0-0.2 N NUCLEATED RBC # (test code = 0.0 X10 3/uL 0.0-0.2 N NRBC#) RESPIRATORY VIRUS PANEL [id number] 03:07:00 Test Item Value Reference Range Interpretation Comments RSV A PCR (test code = RSV Negative Negative A) RSV B PCR (test code = RSV Negative Negative B) INFLUENZA A PCR (test code Negative Negative = FLUAPCR) INFLUENZA B PCR (test code Negative Negative = FLUBPCR) PARAINFLUENZA TYPE 1 PCR Negative Negative (test code = PIF1) PARAINFLUENZA TYPE 2 PCR Negative Negative (test code = PIF2) PARAINFLUENZA TYPE 3 PCR Negative Negative (test code = PIF3) RHINOVIRUS PCR (test code Negative Negative = RHINO) METAPNEUMOVIRUS PCR (test Negative Negative code = METAPNEU) ADENOVIRUS PCR (test code Negative Negative Pe rformed At: BN = ADENOPCR) [facility] [id number] ra Ame [place] Ph:[phone] [id number] 21:09:00 Test Item Value Reference Range Interpretation Comments GLUBED (test code = 128 MG/DL 65-99 H Performe d by certified GLUBED) continuous vulcanizing machine operator at [facility] [id number] 21:09:00 Test Item Value Reference Range Interpretation Comments GLUBED (test code = 103 MG/DL 65-99 H Performe d by certified GLUBED) continuous vulcanizing machine operator at [facility] [id number] 17:22:00 Test Item Value Reference Range Interpretation Comments GLUBED (test code = 149 MG/DL 65-99 H Performe d by certified GLUBED) continuous vulcanizing machine operator at [facility] SED [id number] 13:39:00 Test Item Value Reference Range Interpretation Comments SED RATE (test code = SEDW) 13 MM/HR 0-20 N C REACTIVE [id number] 12:51:00 Test Item Value Reference Range Interpretation Comments C REACTIVE PROTEIN (test code = 1.0 MG/DL < 0.9 H CRP) PROCALCITONIN (PCT)2018-09-03 11:53:00 Test Item Value Reference Range Interpretation Comments PROCALCITONIN (PCT) (test code = < 0.05 ng/mL 0.00-0.50 N PROCAL) [id number] 06:24:00 Test Item Value Reference Range Interpretation Comments GLUBED (test code = 86 MG/DL 65-99 N Performe d by certified GLUBED) continuous vulcanizing machine operator at [facility] CBC W/AUTO [id number] 04:42:00 Test Item Value Reference Range Interpretation Comments WHITE BLOOD CELL 19.06 x10 3/uL 4.80-10.80 H (test code = WBC) RED BLOOD CELL (test 4.76 x10 6/uL 4.2-5.4 N code = RBC) HEMOGLOBIN (test 10.1 G/DL 12.0-16.0 L code = HGB) HEMATOCRIT (test 34.2 % 37-47 L code = HCT) MEAN CELL VOLUME 71.8 FL 81-99 L (test code = MCV) MEAN CELL HGB (test 21.2 PG 27-31 L code = MCH) MEAN CELL HGB 29.5 G/DL 33-37 L CONCENTRATION (test code = MCHC) RED CELL 18.6 % 11.5-14.5 H DISTRIBUTION WIDTH (test code = RDW) PLATELET COUNT (test 409 x10 3/uL 150-450 N code = PLT) MEAN PLATELET VOLUME 8.9 FL 7.4-10.4 N (test code = MPV) NEUTROPHIL % (test 62.9 % 42-86 N code = NT%) IMMATURE GRANULOCYTE 0.9 % 0.0-2.0 N % (test code = IG%) LYMPHOCYTE % (test 28.9 % 24-44 N code = LY%) MONOCYTE % (test 6.3 % 0.0-4.0 H code = MO%) EOSINOPHIL % (test 0.9 % 0.0-2.7 N code = EO%) BASOPHIL % (test 0.1 % 0.0-0.5 N code = BA%) NUCLEATED RBC % 0.0 % 0.0-0.0 N (test code = NRBC%) NEUTROPHIL # (test 11.99 x10 3/uL 1.8-7.7 H code = NT#) IMMATURE GRANULOCYTE 0.17 x10 3/uL 0.00-0.03 H # (test code = IG#) LYMPHOCYTE # (test 5.50 x10 3/uL 1.0-4.8 H code = LY#) MONOCYTE # (test 1.21 x10 3/uL 0.0-0.8 H code = MO#) EOSINOPHIL # (test 0.17 x10 3/uL 0.0-0.5 N code = EO#) BASOPHIL # (test 0.02 x10 3/uL 0.0-0.2 N code = BA#) NUCLEATED RBC # 0.0 X10 3/uL 0.0-0.2 N (test code = NRBC#) MANUAL DIFF REQUIRED AUTODIFF TECH REVIEW Auto (test code = MDIFF) VERIFIED Differen tial verified by danita h review of smear . BASIC METABOLIC [id number] 04:28:00 Test Item Value Reference Range Interpretation Comments SODIUM (test code = 139 MMOL/L 133-145 N NA) POTASSIUM (test code = 4.1 MMOL/L 3.6-5.2 N K) CHLORIDE (test code = 102 MMOL/L 100-108 N CL) CARBON DIOXIDE (test 30 MMOL/L 22-32 N code = CO2) GLUCOSE (test code = 100 MG/DL 65-99 H Results of this assay GLU) method may be f alsely depressed orele vated if patient is t aking sulfasalazine. BLOOD UREA NITROGEN 15 MG/DL 6-20 N (test code = BUN) GLOMERULAR FILTRATION 86 58-135 N Report ing units: RATE (test code = GFR) mL/mi n/1.73m\\S\\2 (Modified MDRD Formula) CREATININE (test code 0.74 MG/DL 0.60-1.00 N = CREAT) CALCIUM (test code = 8.8 MG/DL 8.7-10.5 N CA) CBC W/AUTO [id number] 03:47:00 Test Item Value Reference Range Interpretation Comments WHITE BLOOD CELL (test code = 19.06 x10 3/uL 4.80-10.80 H WBC) RED BLOOD CELL (test code = 4.76 x10 6/uL 4.2-5.4 N RBC) HEMOGLOBIN (test code = HGB) 10.1 G/DL 12.0-16.0 L HEMATOCRIT (test code = HCT) 34.2 % 37-47 L MEAN CELL VOLUME (test code = 71.8 FL 81-99 L MCV) MEAN CELL HGB (test code = 21.2 PG 27-31 L MCH) MEAN CELL HGB CONCENTRATION 29.5 G/DL 33-37 L (test code = MCHC) RED CELL DISTRIBUTION WIDTH 18.6 % 11.5-14.5 H (test code = RDW) PLATELET COUNT (test code = 409 x10 3/uL 150-450 N PLT) MEAN PLATELET VOLUME (test 8.9 FL 7.4-10.4 N code = MPV) NEUTROPHIL % (test code = NT%) 62.9 % 42-86 N IMMATURE GRANULOCYTE % (test 0.9 % 0.0-2.0 N code = IG%) LYMPHOCYTE % (test code = LY%) 28.9 % 24-44 N MONOCYTE % (test code = MO%) 6.3 % 0.0-4.0 H EOSINOPHIL % (test code = EO%) 0.9 % 0.0-2.7 N BASOPHIL % (test code = BA%) 0.1 % 0.0-0.5 N NUCLEATED RBC % (test code = 0.0 % 0.0-0.0 N NRBC%) NEUTROPHIL # (test code = NT#) 11.99 x10 3/uL 1.8-7.7 H IMMATURE GRANULOCYTE # (test 0.17 x10 3/uL 0.00-0.03 H code = IG#) LYMPHOCYTE # (test code = LY#) 5.50 x10 3/uL 1.0-4.8 H MONOCYTE # (test code = MO#) 1.21 x10 3/uL 0.0-0.8 H EOSINOPHIL # (test code = EO#) 0.17 x10 3/uL 0.0-0.5 N BASOPHIL # (test code = BA#) 0.02 x10 3/uL 0.0-0.2 N NUCLEATED RBC # (test code = 0.0 X10 3/uL 0.0-0.2 N NRBC#) [id number] 21:25:00 Test Item Value Reference Range Interpretation Comments GLUBED (test code = 112 MG/DL 65-99 H Performe d by certified GLUBED) continuous vulcanizing machine operator at [facility] [id number] 17:14:00 Test Item Value Reference Range Interpretation Comments GLUBED (test code = 174 MG/DL 65-99 H Performe d by certified GLUBED) continuous vulcanizing machine operator at [facility] [id number] 11:28:00 Test Item Value Reference Range Interpretation Comments GLUBED (test code = 110 MG/DL 65-99 H Performe d by certified GLUBED) continuous vulcanizing machine operator at [facility] [id number] 06:08:00 Test Item Value Reference Range Interpretation Comments GLUBED (test code = 94 MG/DL 65-99 N Performe d by certified GLUBED) continuous vulcanizing machine operator at [facility] BASIC METABOLIC [id number] 03:53:00 Test Item Value Reference Range Interpretation Comments SODIUM (test code = 142 MMOL/L 133-145 N NA) POTASSIUM (test code = 3.9 MMOL/L 3.6-5.2 N K) CHLORIDE (test code = 106 MMOL/L 100-108 N CL) CARBON DIOXIDE (test 32 MMOL/L 22-32 N code = CO2) GLUCOSE (test code = 128 MG/DL 65-99 H Results of this assay GLU) method may be f alsely depressed orele vated if patient is t aking sulfasalazine. BLOOD UREA NITROGEN 16 MG/DL 6-20 N (test code = BUN) GLOMERULAR FILTRATION 82 58-135 N Report ing units: RATE (test code = GFR) mL/mi n/1.73m\\S\\2 (Modified MDRD Formula) CREATININE (test code 0.77 MG/DL 0.60-1.00 N = CREAT) CALCIUM (test code = 8.8 MG/DL 8.7-10.5 N CA) [id number] 03:53:00 Test Item Value Reference Range Interpretation Comments MAGNESIUM (test code = MAG) 1.9 MG/DL 1.8-2.4 N CBC W/AUTO [id number] 03:10:00 Test Item Value Reference Range Interpretation Comments WHITE BLOOD CELL (test code = 16.34 x10 3/uL 4.80-10.80 H WBC) RED BLOOD CELL (test code = 4.49 x10 6/uL 4.2-5.4 N RBC) HEMOGLOBIN (test code = HGB) 9.4 G/DL 12.0-16.0 L HEMATOCRIT (test code = HCT) 33.0 % 37-47 L MEAN CELL VOLUME (test code = 73.5 FL 81-99 L MCV) MEAN CELL HGB (test code = 20.9 PG 27-31 L MCH) MEAN CELL HGB CONCENTRATION 28.5 G/DL 33-37 L (test code = MCHC) RED CELL DISTRIBUTION WIDTH 18.9 % 11.5-14.5 H (test code = RDW) PLATELET COUNT (test code = 406 x10 3/uL 150-450 N PLT) MEAN PLATELET VOLUME (test 8.7 FL 7.4-10.4 N code = MPV) NEUTROPHIL % (test code = NT%) 63.6 % 42-86 N IMMATURE GRANULOCYTE % (test 0.9 % 0.0-2.0 N code = IG%) LYMPHOCYTE % (test code = LY%) 27.0 % 24-44 N MONOCYTE % (test code = MO%) 8.0 % 0.0-4.0 H EOSINOPHIL % (test code = EO%) 0.4 % 0.0-2.7 N BASOPHIL % (test code = BA%) 0.1 % 0.0-0.5 N NUCLEATED RBC % (test code = 0.0 % 0.0-0.0 N NRBC%) NEUTROPHIL # (test code = NT#) 10.41 x10 3/uL 1.8-7.7 H IMMATURE GRANULOCYTE # (test 0.14 x10 3/uL 0.00-0.03 H code = IG#) LYMPHOCYTE # (test code = LY#) 4.41 x10 3/uL 1.0-4.8 N MONOCYTE # (test code = MO#) 1.30 x10 3/uL 0.0-0.8 H EOSINOPHIL # (test code = EO#) 0.06 x10 3/uL 0.0-0.5 N BASOPHIL # (test code = BA#) 0.02 x10 3/uL 0.0-0.2 N NUCLEATED RBC # (test code = 0.0 X10 3/uL 0.0-0.2 N NRBC#) [id number] 21:34:00 Test Item Value Reference Range Interpretation Comments GLUBED (test code = 112 MG/DL 65-99 H Performe d by certified GLUBED) continuous vulcanizing machine operator at [facility] [id number] 17:22:00 Test Item Value Reference Range Interpretation Comments GLUBED (test code = 119 MG/DL 65-99 H Performe d by certified GLUBED) continuous vulcanizing machine operator at [facility] PROCALCITONIN (PCT)2018-09-01 16:53:00 Test Item Value Reference Range Interpretation Comments PROCALCITONIN (PCT) (test code = < 0.05 ng/mL 0.00-0.50 N PROCAL) GLYCOSYLATED HEMOGLOBIN (HA1C)2018-09-01 14:11:00 Test Item Value Reference Range Interpretation Comments GLYCOSYLATED HEMOGLOBIN (HA1C) 5.7 % TOT HB 4.5-6.2 N (test code = GLYHGB) [id number] 11:40:00 Test Item Value Reference Range Interpretation Comments GLUBED (test code = 190 MG/DL 65-99 H Performe d by certified GLUBED) continuous vulcanizing machine operator at [facility] [id number] 06:36:00 Test Item Value Reference Range Interpretation Comments GLUBED (test code = 176 MG/DL 65-99 H Performe d by certified GLUBED) continuous vulcanizing machine operator at [facility] ALPHA 1 [id number] 06:09:00 Test Item Value Reference Range Interpretation Comments ALPHA 1 ANTITRYPSIN 157 mg/dL 90-200 Performe d At: DA (test code = [id number]) [facility] [id number] [facility] [address] [place], [place] [id number] h RUSLAN [place] Ph:[phone] CBC W/AUTO [id number] 03:49:00 Test Item Value Reference Range Interpretation Comments WHITE BLOOD CELL 24.81 x10 3/uL 4.80-10.80 H (test code = WBC) RED BLOOD CELL (test 4.65 x10 6/uL 4.2-5.4 N code = RBC) HEMOGLOBIN (test 9.7 G/DL 12.0-16.0 L code = HGB) HEMATOCRIT (test 34.1 % 37-47 L code = HCT) MEAN CELL VOLUME 73.3 FL 81-99 L (test code = MCV) MEAN CELL HGB (test 20.9 PG 27-31 L code = MCH) MEAN CELL HGB 28.4 G/DL 33-37 L CONCENTRATION (test code = MCHC) RED CELL 18.6 % 11.5-14.5 H DISTRIBUTION WIDTH (test code = RDW) PLATELET COUNT (test 441 x10 3/uL 150-450 N code = PLT) MEAN PLATELET VOLUME 8.7 FL 7.4-10.4 N (test code = MPV) NEUTROPHIL % (test 88.5 % 42-86 H code = NT%) IMMATURE GRANULOCYTE 0.8 % 0.0-2.0 N % (test code = IG%) LYMPHOCYTE % (test 6.2 % 24-44 L code = LY%) MONOCYTE % (test 4.4 % 0.0-4.0 H code = MO%) EOSINOPHIL % (test 0.0 % 0.0-2.7 N code = EO%) BASOPHIL % (test 0.1 % 0.0-0.5 N code = BA%) NUCLEATED RBC % 0.0 % 0.0-0.0 N (test code = NRBC%) NEUTROPHIL # (test 21.94 x10 3/uL 1.8-7.7 H code = NT#) IMMATURE GRANULOCYTE 0.21 x10 3/uL 0.00-0.03 H # (test code = IG#) LYMPHOCYTE # (test 1.55 x10 3/uL 1.0-4.8 N code = LY#) MONOCYTE # (test 1.08 x10 3/uL 0.0-0.8 H code = MO#) EOSINOPHIL # (test 0.00 x10 3/uL 0.0-0.5 N code = EO#) BASOPHIL # (test 0.03 x10 3/uL 0.0-0.2 N code = BA#) NUCLEATED RBC # 0.0 X10 3/uL 0.0-0.2 N (test code = NRBC#) MANUAL DIFF REQUIRED AUTODIFF TECH REVIEW Auto (test code = MDIFF) VERIFIED Differen tial verified by danita h review of smear . BASIC METABOLIC [id number] 03:13:00 Test Item Value Reference Range Interpretation Comments SODIUM (test code = 139 MMOL/L 133-145 N NA) POTASSIUM (test code = 4.5 MMOL/L 3.6-5.2 N K) CHLORIDE (test code = 104 MMOL/L 100-108 N CL) CARBON DIOXIDE (test 30 MMOL/L 22-32 N code = CO2) GLUCOSE (test code = 240 MG/DL 65-99 H Results of this assay GLU) method may be f alsely depressed orele vated if patient is t aking sulfasalazine. BLOOD UREA NITROGEN 14 MG/DL 6-20 N (test code = BUN) GLOMERULAR FILTRATION 83 58-135 N Report ing units: RATE (test code = GFR) mL/mi n/1.73m\\S\\2 (Modified MDRD Formula) CREATININE (test code 0.76 MG/DL 0.60-1.00 N = CREAT) CALCIUM (test code = 8.6 MG/DL 8.7-10.5 L CA) [id number] 03:13:00 Test Item Value Reference Range Interpretation Comments MAGNESIUM (test code = MAG) 2.3 MG/DL 1.8-2.4 N CBC W/AUTO [id number] 03:09:00 Test Item Value Reference Range Interpretation Comments WHITE BLOOD CELL (test code = 24.81 x10 3/uL 4.80-10.80 H WBC) RED BLOOD CELL (test code = 4.65 x10 6/uL 4.2-5.4 N RBC) HEMOGLOBIN (test code = HGB) 9.7 G/DL 12.0-16.0 L HEMATOCRIT (test code = HCT) 34.1 % 37-47 L MEAN CELL VOLUME (test code = 73.3 FL 81-99 L MCV) MEAN CELL HGB (test code = 20.9 PG 27-31 L MCH) MEAN CELL HGB CONCENTRATION 28.4 G/DL 33-37 L (test code = MCHC) RED CELL DISTRIBUTION WIDTH 18.6 % 11.5-14.5 H (test code = RDW) PLATELET COUNT (test code = 441 x10 3/uL 150-450 N PLT) MEAN PLATELET VOLUME (test 8.7 FL 7.4-10.4 N code = MPV) NEUTROPHIL % (test code = NT%) % 42-86 H IMMATURE GRANULOCYTE % (test % 0.0-2.0 N code = IG%) LYMPHOCYTE % (test code = LY%) % 24-44 L MONOCYTE % (test code = MO%) % 0.0-4.0 H EOSINOPHIL % (test code = EO%) % 0.0-2.7 N BASOPHIL % (test code = BA%) % 0.0-0.5 N NUCLEATED RBC % (test code = % 0.0-0.0 N NRBC%) NEUTROPHIL # (test code = NT#) x10 3/uL 1.8-7.7 H IMMATURE GRANULOCYTE # (test x10 3/uL 0.00-0.03 H code = IG#) LYMPHOCYTE # (test code = LY#) x10 3/uL 1.0-4.8 N MONOCYTE # (test code = MO#) x10 3/uL 0.0-0.8 H EOSINOPHIL # (test code = EO#) x10 3/uL 0.0-0.5 N BASOPHIL # (test code = BA#) x10 3/uL 0.0-0.2 N NUCLEATED RBC # (test code = X10 3/uL 0.0-0.2 N NRBC#) [id number] 23:39:00 Test Item Value Reference Range Interpretation Comments GLUBED (test code = 218 MG/DL 65-99 H Performe d by certified GLUBED) continuous vulcanizing machine operator at [facility] [id number] 23:39:00 Test Item Value Reference Range Interpretation Comments GLUBED (test code = 116 MG/DL 65-99 H Performe d by certified GLUBED) continuous vulcanizing machine operator at [facility] [id number] 22:05:00 Test Item Value Reference Range Interpretation Comments TROPONIN-I (test < 0.04 NG/ML 0.00-0.06 N - The use of serial code = TROPI) sampling and t esting protocol is a recommended pra ctice.- An elevated tro ponin level alone is often not sufficient fo r diagnosis of my ocardial infarction.Resu lts of this assay meth od may be falsely depress ed orelevated if p atient is taking high dos es of Biotin. [id number] 20:59:00 Test Item Value Reference Range Interpretation Comments GLUBED (test code = 107 MG/DL 65-99 H Performe d by certified GLUBED) continuous vulcanizing machine operator at [facility] - XR CHEST 1 [id number] 13:59:00 Patient Name: KAREEN LOTT Unit No: [id number] EXAMS: CPT CODE: [id number] XR CHEST 1 V [id number] Reason: POST BRONCHOSCOPY Single view chest shows m ild right basilar infiltrate. There is no pneumothorax or pleural fluid. Heart size remains within normal limits. IMPRESSION: 1. Mild right basilar infiltrate similar to most recent prior at 1359 Reported and signed by: Fernando Myles MD CC: Janusz Fish MD; HILTON SUBRAMANIAN MD Technologist: Flaco Guadarrama RT Trscrpt Dt/ ([phone])[facility] Orig Print D/T: S: 08/31/2018 ([id number]) [facility] Cnt NAME: HÉCTOR LOTT [address] PHYS: RANDY DELUNA [place] [address] : 1975 AGE: 43 SEX: F LOC: [id number].[id number] 1 PHONE #: [phone] EXAM DATE: 08/31/2018STATUS: ADM IN FAX #: RAD NO: DC Dt: PAGE1 Signed Report- XR FLUOROSCOPY 0-60 [id number] 12:31:00 Patient Name: KAREEN LOTT Unit No: [id number] EXAMS: CPT CODE: [id number] XR FLUOROSCOPY 0-60 MIN 59950 Reason: POSSIBLE PNUEMONIA - XR FLUOROSCOPY 0-60 MIN 08/31/2018 10:00 AM 2 spot films were submitted from intraoperative procedure for bronchoscopy. Please refer to progress notes for specifics. at 1231 Reported and signed by: Herminio Benedict MD CC: Janusz Fish MD; Eladio Queen Jr, MD Technologist: Ana Paula Jordan RT Trscrpt Dt/ ([id number])[email or web address] Orig Print D/T: S: 08/31/2018 (1848) [facility]nt NAME: KAREEN LOTT [address] PHYS: Eladio De Leon Jr, [place] [address] : 1975 AGE: 43 SEX: F LOC: D.D325 1 PHONE #: [phone] EXAM DATE: 08/31/2018 STATUS: ADM IN FAX #: RAD NO: DC Dt: PAGE 1 Signed Report- XR CHEST 1 [id number] 11:01:00 Patient Name: KAREEN LOTT Unit No: [id number] EXAMS: CPT CODE: [id number] XR CHEST 1 V 20188 Reason: POST BRONCHOSCOPY PROCEDURE Single view chest shows normal heart size. No pneumothorax demonstrated. There is mild right basilar infiltrate. Lung stephens are otherwise clear. There is no pleural fluid. IMPRESSION: 1. Mild right basilar infiltrate at 1101 Reported and signed by: Fernando Myles MD CC: Janusz Fish MD; Eladio Queen Jr, MD Technologist: Ana Paula Jordan RT Trscrpt Dt/ (1101)[email or web address] Orig Print D/T: S: 08/31/2018 (1104) [facility] NAME: KAREEN LOTT [address] [facility] PHYS: Eladio De Leon Jr, [place] [address] : 1975 AGE: 43 SEX: F LOC: D.D325 1 PHONE #: [phone] EXAM DATE: 08/31/2018 STATUS: ADM IN FAX #: RAD NO: DC Dt: PAGE 1 Signed ReportIMMUNOGLOBULINS A,G [id number] 08:11:00 Test Item Value Reference Range Interpretation Comments IMMUNOGLOBULIN G (test 1058 mg/dL 700-1600 code = IGG) IMMUNOGLOBULIN M (test 154 mg/dL 26-217 Perfo rmed At: HD code = IGM) [facility] [address] [id number] Seth Barnes MD Ph:[phone] IMMUNOGLOBULIN A (test 288 mg/dL 87-352 code = IGA) [id number] 06:32:00 Test Item Value Reference Range Interpretation Comments GLUBED (test code = 84 MG/DL 65-99 N Performe d by certified GLUBED) continuous vulcanizing machine operator at [facility] BASIC METABOLIC [id number] 04:27:00 Test Item Value Reference Range Interpretation Comments SODIUM (test code = 139 MMOL/L 133-145 N NA) POTASSIUM (test code = 4.5 MMOL/L 3.6-5.2 N K) CHLORIDE (test code = 106 MMOL/L 100-108 N CL) CARBON DIOXIDE (test 25 MMOL/L 22-32 N code = CO2) GLUCOSE (test code = 238 MG/DL 65-99 H Results of this assay GLU) method may be f alsely depressed orele vated if patient is t aking sulfasalazine. BLOOD UREA NITROGEN 14 MG/DL 6-20 N (test code = BUN) GLOMERULAR FILTRATION 84 58-135 N Report ing units: RATE (test code = GFR) mL/mi n/1.73m\\S\\2 (Modified MDRD Formula) CREATININE (test code 0.75 MG/DL 0.60-1.00 N = CREAT) CALCIUM (test code = 8.2 MG/DL 8.7-10.5 L CA) [id number] 04:27:00 Test Item Value Reference Range Interpretation Comments MAGNESIUM (test code = MAG) 2.1 MG/DL 1.8-2.4 N BASIC METABOLIC [id number] 04:08:00 Test Item Value Reference Range Interpretation Comments SODIUM (test code = 139 MMOL/L 133-145 N NA) POTASSIUM (test code = 4.5 MMOL/L 3.6-5.2 N K) CHLORIDE (test code = 106 MMOL/L 100-108 N CL) CARBON DIOXIDE (test 25 MMOL/L 22-32 N code = CO2) GLUCOSE (test code = MG/DL 65-99 H Results of this assay GLU) method may be f alsely depressed orele vated if patient is t aking sulfasalazine. BLOOD UREA NITROGEN 14 MG/DL 6-20 N (test code = BUN) GLOMERULAR FILTRATION 84 58-135 N Report ing units: RATE (test code = GFR) mL/mi n/1.73m\\S\\2 (Modified MDRD Formula) CREATININE (test code 0.75 MG/DL 0.60-1.00 N = CREAT) CALCIUM (test code = 8.2 MG/DL 8.7-10.5 L CA) [id number] 04:08:00 Test Item Value Reference Range Interpretation Comments MAGNESIUM (test code = MAG) 2.1 MG/DL 1.8-2.4 N CBC W/AUTO [id number] 03:33:00 Test Item Value Reference Range Interpretation Comments WHITE BLOOD CELL (test code = 19.35 x10 3/uL 4.80-10.80 H WBC) RED BLOOD CELL (test code = 4.23 x10 6/uL 4.2-5.4 N RBC) HEMOGLOBIN (test code = HGB) 8.8 G/DL 12.0-16.0 L HEMATOCRIT (test code = HCT) 30.8 % 37-47 L MEAN CELL VOLUME (test code = 72.8 FL 81-99 L MCV) MEAN CELL HGB (test code = 20.8 PG 27-31 L MCH) MEAN CELL HGB CONCENTRATION 28.6 G/DL 33-37 L (test code = MCHC) RED CELL DISTRIBUTION WIDTH 18.6 % 11.5-14.5 H (test code = RDW) PLATELET COUNT (test code = 429 x10 3/uL 150-450 N PLT) MEAN PLATELET VOLUME (test 8.8 FL 7.4-10.4 N code = MPV) NEUTROPHIL % (test code = NT%) 87.2 % 42-86 H IMMATURE GRANULOCYTE % (test 1.7 % 0.0-2.0 N code = IG%) LYMPHOCYTE % (test code = LY%) 6.6 % 24-44 L MONOCYTE % (test code = MO%) 4.4 % 0.0-4.0 H EOSINOPHIL % (test code = EO%) 0.0 % 0.0-2.7 N BASOPHIL % (test code = BA%) 0.1 % 0.0-0.5 N NUCLEATED RBC % (test code = 0.0 % 0.0-0.0 N NRBC%) NEUTROPHIL # (test code = NT#) 16.88 x10 3/uL 1.8-7.7 H IMMATURE GRANULOCYTE # (test 0.32 x10 3/uL 0.00-0.03 H code = IG#) LYMPHOCYTE # (test code = LY#) 1.27 x10 3/uL 1.0-4.8 N MONOCYTE # (test code = MO#) 0.86 x10 3/uL 0.0-0.8 H EOSINOPHIL # (test code = EO#) 0.00 x10 3/uL 0.0-0.5 N BASOPHIL # (test code = BA#) 0.02 x10 3/uL 0.0-0.2 N NUCLEATED RBC # (test code = 0.0 X10 3/uL 0.0-0.2 N NRBC#) [id number] 20:43:00 Test Item Value Reference Range Interpretation Comments GLUBED (test code = 169 MG/DL 65-99 H Performe d by certified GLUBED) 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 No focal lung consolidation, pleural effusion or pneumothorax is identified. Visualized central airways are intact. Heart and great vessels are normal in appearance. There is no mediastinal or hilar adenopathy. There is no pericardial effusion. Bone windows show no destructive lesion. Incidental imaging of the upper abdomen is unremarkable. IMPRESSION: 1. Mild atelectatic changes, otherwise unremarkable imaging of the chest at 0929 Reported and signed by: Fernando Myles MD CC: Janusz Fish MD; Eladio Queen Jr, MD Technologist: Abhijit Al CTTrscrpt Dt/ (928)My Orig Print D/T: S: 08/30/2018 (931) CTDI: DLP: 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 BLOOD UREA NITROGEN 12 MG/DL 6-20 N (test code = BUN) GLOMERULAR FILTRATION 81 58-135 N Report ing units: RATE (test code = GFR) mL/mi n/1.73m\\S\\2 (Modified MDRD Formula) CREATININE (test code 0.78 MG/DL 0.60-1.00 N = CREAT) CALCIUM (test code = 9.3 MG/DL 8.7-10.5 N CA) [id number] 04:11:00 Test Item Value Reference Range Interpretation Comments MAGNESIUM (test code = MAG) 2.2 MG/DL 1.8-2.4 N BASIC METABOLIC [id number] 03:44:00 Test Item Value Reference Range Interpretation Comments SODIUM (test code = MMOL/L 133-145 N NA) POTASSIUM (test code = MMOL/L 3.6-5.2 K) CHLORIDE (test code = 104 MMOL/L 100-108 N CL) CARBON DIOXIDE (test 27 MMOL/L 22-32 N code = CO2) GLUCOSE (test code = 146 MG/DL 65-99 H Results of this assay GLU) method may be f alsely depressed orele vated if patient is t aking sulfasalazine. BLOOD UREA NITROGEN 12 MG/DL 6-20 N (test code = BUN) GLOMERULAR FILTRATION 81 58-135 N Report ing units: RATE (test code = GFR) mL/mi n/1.73m\\S\\2 (Modified MDRD Formula) CREATININE (test code 0.78 MG/DL 0.60-1.00 N = CREAT) CALCIUM (test code = 9.3 MG/DL 8.7-10.5 N CA) [id number] 03:44:00 Test Item Value Reference Range Interpretation Comments MAGNESIUM (test code = MAG) 2.2 MG/DL 1.8-2.4 N CBC W/AUTO [id number] 03:25:00 Test Item Value Reference Range Interpretation Comments WHITE BLOOD CELL (test code = 14.12 x10 3/uL 4.80-10.80 H WBC) RED BLOOD CELL (test code = 4.66 x10 6/uL 4.2-5.4 N RBC) HEMOGLOBIN (test code = HGB) 9.6 G/DL 12.0-16.0 L HEMATOCRIT (test code = HCT) 33.8 % 37-47 L MEAN CELL VOLUME (test code = 72.5 FL 81-99 L MCV) MEAN CELL HGB (test code = 20.6 PG 27-31 L MCH) MEAN CELL HGB CONCENTRATION 28.4 G/DL 33-37 L (test code = MCHC) RED CELL DISTRIBUTION WIDTH 18.4 % 11.5-14.5 H (test code = RDW) PLATELET COUNT (test code = 436 x10 3/uL 150-450 N PLT) MEAN PLATELET VOLUME (test 8.8 FL 7.4-10.4 N code = MPV) NEUTROPHIL % (test code = NT%) 89.1 % 42-86 H IMMATURE GRANULOCYTE % (test 1.1 % 0.0-2.0 N code = IG%) LYMPHOCYTE % (test code = LY%) 8.1 % 24-44 L MONOCYTE % (test code = MO%) 1.6 % 0.0-4.0 N EOSINOPHIL % (test code = EO%) 0.0 % 0.0-2.7 N BASOPHIL % (test code = BA%) 0.1 % 0.0-0.5 N NUCLEATED RBC % (test code = 0.0 % 0.0-0.0 N NRBC%) NEUTROPHIL # (test code = NT#) 12.57 x10 3/uL 1.8-7.7 H IMMATURE GRANULOCYTE # (test 0.15 x10 3/uL 0.00-0.03 H code = IG#) LYMPHOCYTE # (test code = LY#) 1.15 x10 3/uL 1.0-4.8 N MONOCYTE # (test code = MO#) 0.23 x10 3/uL 0.0-0.8 N EOSINOPHIL # (test code = EO#) 0.00 x10 3/uL 0.0-0.5 N BASOPHIL # (test code = BA#) 0.02 x10 3/uL 0.0-0.2 N NUCLEATED RBC # (test code = 0.0 X10 3/uL 0.0-0.2 N NRBC#) PROCALCITONIN (PCT)2018-08-29 22:38:00 Test Item Value Reference Range Interpretation Comments PROCALCITONIN (PCT) (test code = < 0.05 ng/mL 0.00-0.50 N PROCAL) [id number] 21:27:00 Test Item Value Reference Range Interpretation Comments GLUBED (test code = 168 MG/DL 65-99 H Performe d by certified GLUBED) 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 Technique: 1 view of chest. Comparison: 10/28/2016. Findings: HEART AND MEDIASTINUM: Within normal limits. LUNGS: Clear. Impression: 1. No evidence of acute cardiopulmonary disease. at 1201 Reported and signed by: Michael Vega MD CC: Alla Vargas DO Technologist: Karri Robertson Students; Cynthia Whittaker RT Trscrpt Dt/ (1201)[id number] Orig Print D/T: S: 08/29/2018 (1204) [facility] NAME: KAREEN LOTT [address] PHYS: Alla Beltrán [place] [address] : 1975 AGE: 43 SEX: F LOC: D.MECCA PHONE #: [phone] EXAM DATE: 08/29/2018 STATUS: REG ER FAX #: RAD NO:DC Dt: PAGE 1 Signed ReportCBC W/AUTO [id number] 11:49:00 Test Item Value Reference Range Interpretation Comments WHITE BLOOD CELL (test 13.16 x10 3/uL 4.80-10.80 H Res ults called to code = WBC) and read back Esteban HART Z ERT;1149, 08/29/18, D.LAB.RN. RED BLOOD CELL (test 4.68 x10 6/uL 4.2-5.4 N code = RBC) HEMOGLOBIN (test code 9.7 G/DL 12.0-16.0 L = HGB) HEMATOCRIT (test code 33.6 % 37-47 L = HCT) MEAN CELL VOLUME (test 71.8 FL 81-99 L code = MCV) MEAN CELL HGB (test 20.7 PG 27-31 L code = MCH) MEAN CELL HGB 28.9 G/DL 33-37 L CONCENTRATION (test code = MCHC) RED CELL DISTRIBUTION 18.5 % 11.5-14.5 H WIDTH (test code = RDW) PLATELET COUNT (test 402 x10 3/uL 150-450 N code = PLT) MEAN PLATELET VOLUME 8.3 FL 7.4-10.4 N (test code = MPV) NEUTROPHIL % (test 56.5 % 42-86 N code = NT%) IMMATURE GRANULOCYTE % 0.3 % 0.0-2.0 N (test code = IG%) LYMPHOCYTE % (test 33.4 % 24-44 N code = LY%) MONOCYTE % (test code 6.9 % 0.0-4.0 H = MO%) EOSINOPHIL % (test 2.5 % 0.0-2.7 N code = EO%) BASOPHIL % (test code 0.4 % 0.0-0.5 N = BA%) NUCLEATED RBC % (test 0.0 % 0.0-0.0 N code = NRBC%) NEUTROPHIL # (test 7.43 x10 3/uL 1.8-7.7 N code = NT#) IMMATURE GRANULOCYTE # 0.04 x10 3/uL 0.00-0.03 H (test code = IG#) LYMPHOCYTE # (test 4.40 x10 3/uL 1.0-4.8 N code = LY#) MONOCYTE # (test code 0.91 x10 3/uL 0.0-0.8 H = MO#) EOSINOPHIL # (test 0.33 x10 3/uL 0.0-0.5 N code = EO#) BASOPHIL # (test code 0.05 x10 3/uL 0.0-0.2 N = BA#) NUCLEATED RBC # (test 0.0 X10 3/uL 0.0-0.2 N code = NRBC#) BASIC METABOLIC [id number] 11:48:00 Test Item Value Reference Range Interpretation Comments SODIUM (test code = 138 MMOL/L 133-145 N NA) POTASSIUM (test code = 3.8 MMOL/L 3.6-5.2 N K) CHLORIDE (test code = 103 MMOL/L 100-108 N CL) CARBON DIOXIDE (test 29 MMOL/L 22-32 N code = CO2) GLUCOSE (test code = 116 MG/DL 65-99 H Results of this assay GLU) method may be f alsely depressed orele vated if patient is t aking sulfasalazine. BLOOD UREA NITROGEN 12 MG/DL 6-20 N (test code = BUN) GLOMERULAR FILTRATION 88 58-135 N Report ing units: RATE (test code = GFR) mL/mi n/1.73m\\S\\2 (Modified MDRD Formula) CREATININE (test code 0.72 MG/DL 0.60-1.00 N = CREAT) CALCIUM (test code = 8.4 MG/DL 8.7-10.5 L CA)
[2021-05-29 22:38] LABS: Absolute Lymphocytes (CBC) 2.3 K/uL (0.7-4.9); Lymphocytes % 13.6 % (15.3-44.8); MPV 7.3 fL (7.6-11.3); RBC Red Blood Cell Count 4.86 M/uL (3.86-4.86)
[2021-05-29] MEDS ORDERED: MORPHINE 4 MG/ML SYR ONE (22:49)
[2021-05-29] MEDS ORDERED: NA CHLORIDE 0.9% 1,000 ML ONE (22:49)
[2021-05-29] MEDS ORDERED: ONDANSETRON 4 MG/2 ML VIAL ONE (22:49)
[2021-05-29 23:00] LABS: Urine Blood 2+ (Negative); Urine Glucose Negative (Negative); Urine Protein Negative (Negative)
[2021-05-29 23:10] LABS: Urine Bacteria 20-50 /HPF (<20)
[2021-05-30 00:04] LABS: ALT/SGPT 30 U/L (12-78); AST/SGOT 14 U/L (15-37); Albumin 3.2 g/dL (3.4-5.0); Alkaline Phosphatase 90 U/L (45-117); BUN Blood Urea Nitrogen 9 mg/dL (7-18); Bicarbonate 28 mmol/L (21-32); Bilirubin Total 0.5 mg/dL (0.2-1.0); Glucose Level 99 mg/dL (74-106); Lipase 296 U/L (73-393); Potassium 3.6 mmol/L (3.5-5.1); Sodium Level 138 mmol/L (136-145)
[2021-05-30] MEDS ORDERED: CEFTRIAXONE 1000 MG/VIAL ONE (01:17)
[2021-05-30] MEDS ORDERED: NA CHLORIDE 0.9% 50 ML ONE (01:17)
--- NOTE | 2021-05-30 02:02 | EDPHYS ---
Physician Documentation [facility] Name: Devora Baez Age: 45 yrs Sex: Female : 1975 Arrival Date: 05/29/2021 Time: 19:04 Bed 6 Private MD: ED Physician Elias Newman HPI: 05/29 22:16 This 45 yrs old Female presents to ER via Wheelchair with complaints of kdr Abdominal Pain - Right sided. 22:16 The patient presents with abdominal pain right lower quadrant. Onset: The kdr symptoms/episode began/occurred suddenly. The symptoms do not radiate. Associated signs and symptoms: Pertinent positives: nausea, Pertinent negatives: anorexia, blood in stools, chest pain, fever, headache, hematuria, palpitations, vaginal discharge, vomiting, vomiting blood. The symptoms are described as constant, crampy, sharp, stabbing. Modifying factors: The symptoms are alleviated by remaining still, the symptoms are aggravated by coughing, movement. Severity of pain: At its worst the pain was moderate in the emergency department the pain. The patient has not recently seen a physician. 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 - Social history:: Smoking status: Patient denies any tobacco usage or history of. ROS: 22:16 Constitutional: Negative for fever, chills, and weight loss, Eyes: Negative for injury, kdr pain, redness, and discharge, ENT: Negative for injury, pain, and discharge, Neck: Negative for injury, pain, and swelling, Cardiovascular: Negative for chest pain, palpitations, and edema, Respiratory: Negative for shortness of breath, cough, wheezing, and pleuritic chest pain, Back: Negative for injury and pain, : Negative for injury, bleeding, discharge, and swelling, MS/Extremity: Negative for injury and deformity, Skin: Negative for injury, rash, and discoloration, Neuro: Negative for headache, weakness, numbness, tingling, and seizure activity. Psych: Negative for depression, anxiety, suicide ideation, homicidal ideation, and hallucinations, Allergy/Immunology: Negative for hives, rash, and allergies, Hematologic/Lymphatic: Negative for swollen nodes, abnormal bleeding, and unusual bruising. 22:16 Abdomen/GI: Positive for abdominal pain, nausea, constipation, Negative for black/tarry stool, rectal pain, rectal bleeding. Exam: 22:16 Constitutional: This is a well developed, well nourished patient who is awake, alert, kdr and in no acute distress. Head/Face: Normocephalic, atraumatic. Eyes: Pupils equal round and reactive to light, extra-ocular motions intact. Lids and lashes normal. Conjunctiva and sclera are non-icteric and not injected. Cornea within normal limits. Periorbital areas with no swelling, redness, or edema. Neck: Trachea midline, no thyromegaly or masses palpated, and no cervical lymphadenopathy. Supple, full range of motion without nuchal rigidity, or vertebral point tenderness. No Meningismus. Chest/axilla: Normal chest wall appearance and motion. Nontender with no deformity. No lesions are appreciated. Cardiovascular: Regular rate and rhythm with a normal S1 and S2. No gallops, murmurs, or rubs. Normal PMI, no JVD. No pulse deficits. Back: No spinal tenderness. No costovertebral tenderness. Full range of motion. Skin: Warm, dry with normal turgor. Normal color with no rashes, no lesions, and no evidence of cellulitis. MS/ Extremity: Pulses equal, no cyanosis. Neurovascular intact. Full, normal range of motion. Neuro: Awake and alert, GCS 15, oriented to person, place, time, and situation. Cranial nerves II-XII grossly intact. Motor strength 5/5 in all extremities. Sensory grossly intact. Cerebellar exam normal. Normal gait. Psych: Awake, alert, with orientation to person, place and time. Behavior, mood, and affect are within normal limits. 22:16 Respiratory: mild respiratory distress is noted, Respirations: normal, Breath sounds: rales, bronchial sounds, wheezin:16 Abdomen/GI: Inspection: obese Bowel sounds: diminished, Palpation: soft, mild abdominal tenderness, moderate abdominal tenderness, in the right lower quadrant. Vital Signs: 19:25 BP 135 / 86; Pulse 79; Resp 18; Temp 98.3(O); Pulse Ox 100% on R/A; Weight 113.4 kg; 5 Height 4 ft. 11 in. (149.86 cm); Pain 10/10; 05/30 00:54 BP 122 / 71; Pulse 67; Resp 18; Pulse Ox 96% ; Pain 8/10; al4 01:30 BP 110 / 53; Pulse 87; Resp 17; Pulse Ox 98% on R/A; al4 02:15 BP 95 / 73; Pulse 84; Resp 18 S; Pulse Ox 98% on R/A; al4 05/29 19:25 Body Mass Index 50.49 (113.40 kg, 149.86 cm) [facility] MDM: 05/29 22:16 Data reviewed: vital signs, nurses notes, lab test result(s), radiologic studies. [facility] Counseling: I had a detailed discussion with the patient and/or guardian regarding: the historical points, exam findings, and any diagnostic results supporting the discharge/admit diagnosis, lab results, radiology results. 05/30 02:02 Patient medically screened. [facility] 05/29 21:24 Order name: CBC with Diff; Complete Time: 22:58 [facility] 05/29 21:24 Order name: CMP; Complete Time: 00:53 [facility] 05/29 21:24 Order name: Lipase; Complete Time: 00:53 [facility] 05/29 23:00 Order name: Urine --Ancillary (enter results); Complete Time: 00:53 2 05/29 23:00 Order name: Urine Culture [facility] 05/29 23:00 Order name: Urine Microscopic Only; Complete Time: 00:53 [facility] 05/29 21:29 Order name: CT Abd/Pelvis - IV Contrast Only [facility] 05/29 21:29 Order name: US Transvaginal Study (Probe) [facility] 05/29 23:01 Order name: Urine Dipstick-Ancillary; Complete Time: 00:53 EDTN 05/30 00:59 Order name: CREATININE WHOLE BLOOD; Complete Time: 01:33 EDTN 05/29 21:24 Order name: IV Saline Lock; Complete Time: 22:42 kdr 05/29 21:24 Order name: Labs collected and sent; Complete Time: 22:56 kdr 05/29 21:24 Order name: Urine Dipstick-Ancillary (obtain specimen); Complete Time: 22:56 [facility] 05/29 21:24 Order name: Urine Test (obtain specimen); Complete Time: 22:59 kdr Administered Medications: 05/29 22:54 Drug: morphine 4 mg Route: IVP; Site: left wrist; vc1 05/30 00:51 Follow up: Response: No adverse reaction; RASS: Alert and Calm (0) al4 05/29 22:55 Drug: NS 0.9% 1000 ml {Note: Started by MINDA Ribeiro} Route: IV; Rate: 1 bolus; Site: al4 left wrist; 05/30 01:25 Follow up: IV Status: Completed infusion; IV Intake: 1000ml al4 05/29 22:55 Drug: Zofran (Ondansetron) 4 mg Route: IVP; Site: left wrist; vc1 05/30 00:51 Follow up: Response: No adverse reaction al4 01:25 Drug: Rocephin - (cefTRIAXone) 1 grams Route: IVPB; Infused Over: 30 mins; Site: left al4 wrist; 01:57 Follow up: Response: No adverse reaction; IV Status: Completed infusion al4 02:19 Drug: Acetaminophen-Codeine (300 mg-30 mg) 1 tablet Route: PO; al4 02:29 Follow up: Response: No adverse reaction al4 Disposition Summary: 05/30/21 02:02 Discharge Ordered Location: Home kdr Problem: new kdr Symptoms: have improved kdr Condition: Stable kdr Diagnosis - Other abdominal pain kdr - Ureteritis kdr Followup: kdr - With: Private Physician - When: 2 - 3 days - Reason: If symptoms return, Further diagnostic work-up, Recheck today's complaints, Continuance of care, Re-evaluation by your physician Discharge Instructions: - Discharge Summary Sheet kdr - Antibiotic Resistance kdr - Urethritis, Adult kdr - Abdominal Pain, Adult, [id number] kdr Forms: - Medication Reconciliation Form kdr - Thank You Letter kdr - Antibiotic Education kdr - Prescription Opioid Use kdr Prescriptions: - Miralax 17 gram Oral powder in packet - take 1 packet by ORAL route once daily As needed; 1 box; Refills: 0, Product kdr Selection Permitted - Bactrim DS 800-160 mg Oral Tablet - take 1 tablet by ORAL route every 12 hours for 7 days; 14 tablet; Refills: 0, kdr Product Selection Permitted - Tylenol-Codeine #3 300 mg-30 mg Oral - take 1 tablet by ORAL route every 4-6 hours As needed; 12 tablet; Refills: 0, kdr Product Selection Permitted Signatures: Dispatcher [employer] Elias Lawson MD MD kdr Ledbetter, Alexis al4 Mazur, Sarah RN RN sm5 Gema Murcia RN RN vc1 Yusra Levy PA PA sb3
--- NOTE | 2021-05-30 02:02 | ER ---
Nurse's Notes [facility] Name: Devora Baez Age: 45 yrs Sex: Female : 1975 Arrival Date: 05/29/2021 Time: 19:04 Bed 6 Private MD: Diagnosis: Other abdominal pain;Ureteritis Presentation: 05/29 19:25 Chief complaint: Patient states: RLQ abd pain radiating to her back since yesterday sm5 with nausea. Coronavirus screen: Vaccine status: Patient reports being unvaccinated. Ebola Screen: No symptoms or risks identified at this time. Initial Sepsis Screen: Does the patient meet any 2 criteria? No. Patient's initial sepsis screen is negative. Does the patient have a suspected source of infection? No. Patient's initial sepsis screen is negative. Risk Assessment: Do you want to hurt yourself or someone else? Patient reports no desire to harm self or others. Onset of symptoms was May 28, 2021. 19:25 Method Of Arrival: Wheelchair 5 19:25 Acuity: GARCIA 3 sm5 Triage Assessment: 19:28 General: Appears uncomfortable, Behavior is cooperative. Pain: Complains of pain in sm5 right lower abdomen. GI: Abdomen is obese, Reports nausea. 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 - Social history:: Smoking status: Patient denies any tobacco usage or history of. Screenin:29 Abuse screen: Denies threats or abuse. Denies injuries from another. Nutritional sm5 screening: No deficits noted. Tuberculosis screening: No symptoms or risk factors identified. Fall Risk None identified. Assessment: 22:50 General: Appears uncomfortable, Behavior is calm, cooperative. Pain: Complains of pain al4 in right lower quadrant Pain currently is 10 out of 10 on a pain scale. Pain began 2-3 days ago. Neuro: Level of Consciousness is awake, alert, obeys commands, Oriented to person, place, time, situation. Cardiovascular: Capillary refill < 3 seconds Patient's skin is warm and dry. Respiratory: Airway is patent Respiratory effort is unlabored, Respiratory pattern is regular. GI: Bowel sounds diminished in right lower quadrant Abdomen is tender to palpation in right lower quadrant. : Urine is clear. Musculoskeletal: Circulation, motion, and sensation intact. 23:16 Reassessment: Patient appears in no apparent distress at this time. patient is resting al4 with eyes closed. patient is snoring, breathing is unlabored. 05/30 00:55 Reassessment: Patient appears in no apparent distress at this time. Patient and/or al4 family updated on plan of care and expected duration. Pain level reassessed. 01:32 Reassessment: Patient appears in no apparent distress at this time. patient requested al4 ice chips. ice chips given with MD Newman permission. 02:26 Reassessment: Patient appears in no apparent distress at this time. Patient is alert, al4 oriented x 3, equal unlabored respirations, skin warm/dry/pink. Vital Signs: 05/29 19:25 BP 135 / 86; Pulse 79; Resp 18; Temp 98.3(O); Pulse Ox 100% on R/A; Weight 113.4 kg; 5 Height 4 ft. 11 in. (149.86 cm); Pain 10/10; 05/30 00:54 BP 122 / 71; Pulse 67; Resp 18; Pulse Ox 96% ; Pain 8/10; al4 01:30 BP 110 / 53; Pulse 87; Resp 17; Pulse Ox 98% on R/A; al4 02:15 BP 95 / 73; Pulse 84; Resp 18 S; Pulse Ox 98% on R/A; al4 05/29 19:25 Body Mass Index 50.49 (113.40 kg, 149.86 cm) [facility] ED Course: 05/29 19:04 Patient arrived in ED. kz 19:05 Elias Newman MD is Attending Physician. [facility] 19:27 Triage completed. [facility] 19:29 Arm band placed on right wrist. [facility] 22:06 Valencia Cleveland, MINDA is Primary Nurse. kd3 22:22 Inserted saline lock: 22 gauge in right antecubital area, using aseptic technique. vc1 Blood collected. 23:00 Urine collected: clean catch specimen, cloudy. mw2 23:01 Urine Microscopic Only Sent. mw2 23:01 Urine Culture Sent. mw2 23:55 CT Abd/Pelvis - IV Contrast Only In Process Unspecified. EDMS 05/30 00:40 US Transvaginal Study (Probe) In Process Unspecified. EDMS 00:55 Bed in low position. Call light in reach. al4 02:28 No provider procedures requiring assistance completed. IV discontinued, intact, al4 bleeding controlled, No redness/swelling at site. Pressure dressing applied. Administered Medications: 05/29 22:54 Drug: morphine 4 mg Route: IVP; Site: left wrist; vc1 05/30 00:51 Follow up: Response: No adverse reaction; RASS: Alert and Calm (0) al4 05/29 22:55 Drug: NS 0.9% 1000 ml {Note: Started by MINDA Ribeiro .} Route: IV; Rate: 1 bolus; Site: al4 left wrist; 05/30 01:25 Follow up: IV Status: Completed infusion; IV Intake: 1000ml al4 05/29 22:55 Drug: Zofran (Ondansetron) 4 mg Route: IVP; Site: left wrist; vc1 05/30 00:51 Follow up: Response: No adverse reaction al4 01:25 Drug: Rocephin - (cefTRIAXone) 1 grams Route: IVPB; Infused Over: 30 mins; Site: left al4 wrist; 01:57 Follow up: Response: No adverse reaction; IV Status: Completed infusion al4 02:19 Drug: Acetaminophen-Codeine (300 mg-30 mg) 1 tablet Route: PO; al4 02:29 Follow up: Response: No adverse reaction al4 Intake: 01:25 IV: 1000ml; Total: 1000ml. al4 Outcome: 02:02 Discharge ordered by . kdr 02:28 Discharged to home via wheelchair, with ride on the way al4 02:28 Condition: stable 02:28 Discharge instructions given to patient, Instructed on discharge instructions, follow up and referral plans. medication usage, Demonstrated understanding of instructions, follow-up care, medications, Prescriptions given X 3. 02:33 Patient left the ED. al4 Addendum: 06/02/2021 08:59 Addendum: Culture Results: Positive urine culture. No further action required. Bacteria s s sensitive to prescribed antibiotic. Signatures: Dispatcher [employer] EDAZ Elias Newman MD MD kdr Smirch, Shelby, RN RN ss Winchester, Faisal mw2 Valencia Cleveland, RN RN kd3 Lm King al4 Carolina Fox, RN RN sm5 Gema Murcia, RN RN vc1 Alla Keller kcaden Corrections: (The following items were deleted from the chart) 05/30 00:53 05/29 22:50 GI: Bowel sounds present X 4 quads. Abdomen is tender to palpation in right al4 lower quadrant al4 05/30 00:54 05/29 22:50 GI: Bowel sounds Abdomen is tender to palpation in right lower quadrant al4 al4
[2021-05-30] MEDS ORDERED: CODEINE 30MG/APAP 300MG TAB ONE (02:20)
[2021-05-30 02:56] VITALS: TEMP 98.3
[2021-05-30 03:00] VITALS: O2SAT 98
[2021-05-30 03:02] VITALS: BP 95/73
--- NOTE | 2021-05-30 18:27 | RAD REPORT ---
EXAM DESCRIPTION: CT - Abdomen Pelvis W Contrast - 05/30/2021 6:53 am CLINICAL HISTORY: 45-year-old female with RIGHT lower quadrant abdominal pain. COMPARISON: 05/14/2021 TECHNIQUE: CT of the abdomen and pelvis was performed following intravenous administration of contra st. Oral contrast was not administered. Multiplanar reformatted images were provided. This exam was p erformed according to our departmental dose optimization program which includes use of automated expo sure control, adjustment of the mA and/or kV according to patient size and/or use of iterative recons truction technique. FINDINGS: Chest: Evaluation through the lung bases reveals no focal opacity, pleural effusion or pne umothorax. Heart size is within normal limits. No pericardial effusion. Abdomen and pelvis: The liver, spleen, bilateral kidneys and bilateral adrenal glands are within norm al limits. Diffuse fatty replacement of the pancreas otherwise within normal limits. Surgical clips at the level of the gallbladder fossa status post cholecystectomy. Incidentally noted mild prominence of the RIGHT ureter with enhancement of the ureteral wall and peripheral ureteral str anding raising the possibility of ureteritis. The vessels are patent and normal in caliber. No abdominopelvic lymph nodes are noted to be pathologically enlarged by CT measurement criteria. Unformed stool present throughout the large and small bowel compatible with liquid fecal content/diar benita, raising the question of enteritis. The bowel is within normal limits without abnormal bowel wall thickness or bowel dilation. No free air. No free abdominopelvic fluid collections. The appendix is within normal limits. The uterus demonstrates an appearance of a bilobed structure with focus of hypoattenuation within the LEFT side fundus suggesting uterine leiomyoma in what may reflect an arcuate or bicornuate uterus. L EFT ovarian cyst measures 3.2 cm best practice guidelines:3.2 cm left ovarian simple-appearing cyst. No follow-up imaging is recommended. Reference: JACR 2019;17(2):248-254 The osseous structures are within normal limits. IMPRESSION: 1. No specific acute intra-abdominal findings are noted to suggest etiology of the pat ient's abdominal pain. 2. Unformed stool present throughout the large and small bowel compatible with liquid fecal content /diarrhea, raising the question of enteritis. 3. Incidentally noted mild prominence of the RIGHT ureter with enhancement of the ureteral wall and peripheral ureteral stranding raising the possibility of ureteritis. Electronically signed by: Carolina Chavez MD 05/30/2021 12:41 AM CDT Due to temporary technical issues with the PACS/Fluency reporting system, reports are being signed by the in house radiologists without review as a courtesy to insure prompt reporting. The interpreting radiologist is fully responsible for the content of the report.
--- NOTE | 2021-05-30 18:28 | RAD REPORT ---
EXAM DESCRIPTION: US - Transvaginal Study Probe - 05/30/2021 12:38 am CLINICAL HISTORY: 45 years Female, RLQ PAIN COMPARISON: None. TECHNIQUE: Complete pelvic ultrasound obtained with transvaginal imaging. FINDINGS: Uterus: Uterus measures 9.7 x 4.8 x 5.0 cm. Dissection in the uterine myometrium measuring 2.5 cm compatible with a uterine fibroid. Arcuate or bicornuate uterus. Endometrium: Endometrial thickness of 0.8 cm. Right ovary: The right ovary measures 3.8 x 2.5 x 3.4 cm. Left ovary: The left ovary is not visualized due to overlying structures. Adnexa: No additional adnexal findings. Free fluid: No free pelvic fluid. Duplex imaging: Color and spectral Doppler imaging demonstrates blood flow within the right ovary. IMPRESSION: 1. 2.5 cm uterine fibroid. 2. No acute abnormalities in the pelvis. The left ovary is not visualized. Electronically signed by: Flaco Beaulieu 05/30/2021 1:30 AM CDT Due to temporary technical issues with the PACS/Fluency reporting system, reports are being signed by the in house radiologists without review as a courtesy to insure prompt reporting. The interpreting radiologist is fully responsible for the content of the report.
== END 2021-05-30 02:33 | disposition home or self-care (01) ==
LOC: ER 19:02
DX: N28.86 Ureteritis cystica (principal); R11.0 Nausea; Z88.1 Allergy status to other antibiotic agents; Z88.8 Allergy status to other drugs, medicaments and biological substances
CPT/HCPCS: 96365; 96361; 87088; 85025; 87086; 36415; 81025; 82565; 87077; 87186; 83690; 80053; 74177; 76830; 96375; 99284; Q9967; J7030; J2405; 81003; 81015

== ENCOUNTER 2021-08-23 01:35 | Emergency (ER) | payer OTHER ==
[2021-08-23] MEDS ORDERED: MORPHINE 4 MG/ML SYR ONE (02:22)
[2021-08-23] MEDS ORDERED: ONDANSETRON 4 MG/2 ML VIAL ONE (02:22)
[2021-08-23 02:37] LABS: Absolute Lymphocytes (CBC) 2.7 K/uL (0.7-4.9); Hematocrit 36.8 % (36.0-45.0); Lymphocytes % 27.8 % (15.3-44.8); MCV 83.6 fL (80-100); MPV 7.2 fL (7.6-11.3); RBC Red Blood Cell Count 4.41 M/uL (3.86-4.86)
[2021-08-23 02:37] LABS: Urine Blood Trace-intact (Negative); Urine Glucose Negative (Negative); Urine Protein Negative (Negative); Urine Specific Gravity >=1.030 (1.005-1.030)
[2021-08-23 02:50] LABS: Potassium 3.9 mmol/L (3.5-5.1); Troponin High Sensitivity 5.6 pg/mL (<58.9)
--- NOTE | 2021-08-23 05:50 | ER ---
Nurse's Notes [facility] Name: Devora Baez Age: 46 yrs Sex: Female : 1975 Arrival Date: 08/23/2021 Time: 01:35 Bed 20 Private MD: Diagnosis: Chest pain, unspecified Presentation: 08/23 01:51 Chief complaint: Patient states: she started having severe chest pain about 2 hours bb ago. Coronavirus screen: At this time, the client does not indicate any symptoms associated with coronavirus-19. Ebola Screen: No symptoms or risks identified at this time. Initial Sepsis Screen: Does the patient meet any 2 criteria? No. Patient's initial sepsis screen is negative. Does the patient have a suspected source of infection? No. Patient's initial sepsis screen is negative. Risk Assessment: Do you want to hurt yourself or someone else? Patient reports no desire to harm self or others. Onset of symptoms was August 23, 2021. 01:51 Method Of Arrival: Wheelchair 01:51 Acuity: GARCIA 3 bb Triage Assessment: 02:26 General: Appears in no apparent distress. uncomfortable, Behavior is cooperative, vc1 crying. Pain: Complains of pain in left breast Pain does not radiate. Cardiovascular: Reports chest pain, Capillary refill Patient's skin is warm and dry. Chest pain is described as severe, quality is clutching, is located in left anterior chest wall. Respiratory: Airway is patent Respiratory effort is even, unlabored, Respiratory pattern is tachypnea. 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 - Social history:: Smoking status: Patient denies any tobacco usage or history of. Screenin:26 Abuse screen: Denies threats or abuse. Nutritional screening: On. Tuberculosis vc1 screening: No symptoms or risk factors identified. Fall Risk No fall in past 12 months (0 pts). Secondary diagnosis (15 points) impaired mobility, IV access (20 points). Ambulatory Aid- None/Bed Rest/Nurse Assist (0 pts). Gait- Impaired (20 pts.). Mental Status- Oriented to own ability (0 pts). Total [place] Fall Scale indicates High Risk Score (45 or more points). Fall prevention measures have been instituted. Family Present and informed to notify staff if the need to leave the bedside As available patient and family educated on Fall Prevention Program and Strategies. Assessment: 02:00 Pain: Pain began suddenly. vc1 03:37 Reassessment: Patient and/or family updated on plan of care and expected duration. Pain vc1 level reassessed. Patient is alert, oriented x 3, equal unlabored respirations, skin warm/dry/pink. 04:35 Reassessment: Patient and/or family updated on plan of care and expected duration. Pain vc1 level reassessed. Patient is alert, oriented x 3, equal unlabored respirations, skin warm/dry/pink. 05:45 Reassessment: Patient and/or family updated on plan of care and expected duration. Pain vc1 level reassessed. Patient is alert, oriented x 3, equal unlabored respirations, skin warm/dry/pink. Vital Signs: 01:51 BP 134 / 73; Pulse 81; Resp 20 S; Temp 97.4(TE); Pulse Ox 100% on R/A; Weight 100.7 kg bb (R); Height 4 ft. 11 in. (149.86 cm) (R); Pain 9/10; 02:30 BP 112 / 82; Pulse 80; Resp 18; Pulse Ox 97% on R/A; vc1 03:15 BP 113 / 68; Pulse 77; Resp 18; Pulse Ox 97% on R/A; vc1 04:35 BP 121 / 69; Pulse 73; Resp 17; Pulse Ox 99% ; vc1 05:45 BP 124 / 71; Pulse 65; Resp 18; Pulse Ox 99% ; vc1 01:51 Body Mass Index 44.84 (100.70 kg, 149.86 cm) bb ED Course: 01:35 Patient arrived in ED. ja2 01:52 Triage completed. bb 01:52 Arm band placed on Patient placed in an exam room, on a stretcher, on awake overnight monitor, bb on pulse oximetry. EKG completed in triage. Results shown to MD. 02:10 Inserted saline lock: 22 gauge in right antecubital area, using aseptic technique. vc1 Blood collected. 02:12 Gema Murcia, MINDA is Primary Nurse. vc1 02:13 XRAY Chest (1 view) Sent. vc1 02:14 XRAY Chest (1 view) In Process Unspecified. EDMS 02:28 Patient has correct armband on for positive identification. Bed in low position. Call vc1 light in reach. Client placed on continuous cardiac and pulse oximetry monitoring. NIBP monitoring applied. 02:28 Patient maintains SpO2 saturation greater than 95% on room air. vc1 03:06 Inocencio Marinelli MD is Attending Physician. [facility] 03:35 No provider procedures requiring assistance completed. vc1 06:19 IV discontinued, intact, bleeding controlled, No redness/swelling at site. Pressure vc1 dressing applied. Administered Medications: 02:24 Drug: Zofran (Ondansetron) 4 mg Route: IVP; Site: right antecubital; vc1 02:24 Drug: morphine 4 mg Route: IVP; Infused Over: 4 mins; Site: right antecubital; vc1 Medication: 03:35 VIS not applicable for this client. vc1 Outcome: 05:50 Discharge ordered by . [facility] 06:18 Discharged to home ambulatory, with family. vc1 06:18 Condition: good 06:18 Discharge instructions given to patient, Instructed on discharge instructions, follow up and referral plans. medication usage, Demonstrated understanding of instructions, follow-up care, medications, Prescriptions given X 2. 06:19 Patient left the ED. vc1 Signatures: Dispatcher [employer] Inessa Taveras RN RN bb Holmes, Maurice, MD MD [facility] Honey Davies [facility] Gema Murcia RN RN vc1
--- NOTE | 2021-08-23 05:51 | EDPHYS ---
Physician Documentation [facility] Name: Devora Baez Age: 46 yrs Sex: Female : 1975 Arrival Date: 08/23/2021 Time: 01:35 Bed 20 Private MD: KEVIN Physician Inocencio Marinelli HPI: 08/23 03:30 This 46 yrs old Female presents to ER via Wheelchair with complaints of Chest mh7 Pain. 03:30 The patient or guardian reports chest pain that is located primarily in the anterior mh7 chest wall, left, . Onset: last night. The pain does not radiate. Associated signs and symptoms: Pertinent negatives: abdominal pain, cough, diaphoresis, dizziness, headache, lower extremity pain, lower extremity swelling, lightheadedness, nausea, near syncope, palpitations, recent travel, shortness of breath, syncope, vomiting. The chest pain is described as sharp. Duration: The patient or guardian reports multiple episodes, that are intermittent, that wax and wane, with no pattern, the episodes last approximately 10 second(s). Modifying factors: The symptoms are alleviated by nothing. the symptoms are aggravated by movement, palpation of area. Severity of pain: At its worst the pain was moderate today, in the emergency department the pain has improved moderately. 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 - Social history:: Smoking status: Patient denies any tobacco usage or history of. ROS: 03:30 Constitutional: Negative for fever, chills, and weight loss, Eyes: Negative for injury, mh7 pain, redness, and discharge, ENT: Negative for injury, pain, and discharge, Neck: Negative for injury, pain, and swelling, Respiratory: Negative for shortness of breath, cough, wheezing, and pleuritic chest pain, Abdomen/GI: Negative for abdominal pain, nausea, vomiting, diarrhea, and constipation, Back: Negative for injury and pain, : Negative for injury, bleeding, discharge, and swelling, MS/Extremity: Negative for injury and deformity, Skin: Negative for injury, rash, and discoloration, Neuro: Negative for headache, weakness, numbness, tingling, and seizure, Psych: Negative for depression, anxiety, suicide ideation, homicidal ideation, and hallucinations, Allergy/Immunology: Negative for hives, rash, and allergies, Endocrine: Negative for neck swelling, polydipsia, polyuria, polyphagia, and marked weight changes, Hematologic/Lymphatic: Negative for swollen nodes, abnormal bleeding, and unusual bruising. Exam: 03:30 Constitutional: This is a well developed, well nourished patient who is awake, alert, mh7 and in no acute distress. Head/Face: Normocephalic, atraumatic. Eyes: Pupils equal round and reactive to light, extra-ocular motions intact. Lids and lashes normal. Conjunctiva and sclera are non-icteric and not injected. Cornea within normal limits. Periorbital areas with no swelling, redness, or edema. Neck: Trachea midline, no thyromegaly or masses palpated, and no cervical lymphadenopathy. Supple, full range of motion without nuchal rigidity, or vertebral point tenderness. No Meningismus. 03:30 Cardiovascular: Regular rate and rhythm with a normal S1 and S2. No gallops, murmurs, or rubs. Normal PMI, no JVD. No pulse deficits. Respiratory: Lungs have equal breath sounds bilaterally, clear to auscultation and percussion. No rales, rhonchi or wheezes noted. No increased work of breathing, no retractions or nasal flaring. Abdomen/GI: Soft, non-tender, with normal bowel sounds. No distension or tympany. No guarding or rebound. No evidence of tenderness throughout. Back: No spinal tenderness. No costovertebral tenderness. Full range of motion. Skin: Warm, dry with normal turgor. Normal color with no rashes, no lesions, and no evidence of cellulitis. MS/ Extremity: Pulses equal, no cyanosis. Neurovascular intact. Full, normal range of motion. Neuro: Awake and alert, GCS 15, oriented to person, place, time, and situation. Cranial nerves II-XII grossly intact. Motor strength 5/5 in all extremities. Sensory grossly intact. Cerebellar exam normal. Normal gait. Psych: Awake, alert, with orientation to person, place and time. Behavior, mood, and affect are within normal limits. 03:30 Chest/axilla: Inspection: normal, Palpation: tenderness, that is moderate, of the left lateral anterior chest, that totally reproduces the patient's complaints, Axilla: are normal, Lymph nodes: lymphadenopathy is not appreciated. Vital Signs: 01:51 BP 134 / 73; Pulse 81; Resp 20 S; Temp 97.4(TE); Pulse Ox 100% on R/A; Weight 100.7 kg bb (R); Height 4 ft. 11 in. (149.86 cm) (R); Pain 9/10; 02:30 BP 112 / 82; Pulse 80; Resp 18; Pulse Ox 97% on R/A; vc1 03:15 BP 113 / 68; Pulse 77; Resp 18; Pulse Ox 97% on R/A; vc1 04:35 BP 121 / 69; Pulse 73; Resp 17; Pulse Ox 99% ; vc1 05:45 BP 124 / 71; Pulse 65; Resp 18; Pulse Ox 99% ; vc1 01:51 Body Mass Index 44.84 (100.70 kg, 149.86 cm) MDM: 05:48 Differential diagnosis: acute myocardial infarction, acute pericarditis, anxiety, mh7 coronary artery disease chest wall pain, congestive heart failure costochondritis, esophagitis, gastritis, gastroesophageal reflux disease (GERD), pericarditis, pleurisy, pneumonia, pneumothorax, pulmonary embolus. HEART Score: History: Slightly Suspicious (0), ECG: Non specific repolarization disturbance / LBTB / PM (1), Age: > 45 and < 65 years (1), Risk Factors: No Risk Factors Known (0), Troponin: < or = 1 x Normal Limit (0), Total Score = 1. Data reviewed: vital signs, nurses notes, lab test result(s), cardiac enzymes, CBC, electrolytes, EKG, radiologic studies, plain films. Data interpreted: Pulse oximetry: on room air is 99 %. Interpretation: normal. Counseling: I had a detailed discussion with the patient and/or guardian regarding: the historical points, exam findings, and any diagnostic results supporting the discharge/admit diagnosis, lab results, radiology results, the need for outpatient follow up. Response to treatment: the patient's symptoms have resolved after treatment, the patient's blood pressure is in an acceptable range, mental status has returned to baseline, the patient no longer shows bradycardia, the patient is not short of breath, the patient is not tachycardic, the patient's pain is gone, the patient's temperature has normalized, the patient is now symptom free, patient is well hydrated. 05:[address] [facility] 08/23 01:55 Order name: Basic Metabolic Panel; Complete Time: 03:11 [facility] 08/23 01:55 Order name: CBC with Diff; Complete Time: 03:11 [facility] 08/23 01:55 Order name: Troponin HS; Complete Time: 03:11 [facility] 08/23 02:37 Order name: Urine Dipstick-Ancillary; Complete Time: 03:11 [facility] 08/23 01:55 Order name: XRAY Chest (1 view) [facility] 08/23 01:55 Order name: EKG; Complete Time: 01:56 [facility] 08/23 01:55 Order name: Cardiac monitoring; Complete Time: 02:25 [facility] 08/23 01:55 Order name: EKG - Nurse/Tech; Complete Time: 01:56 [facility] 08/23 01:55 Order name: IV Saline Lock; Complete Time: 02:12 [facility] 08/23 03:46 Order name: D-Dimer; Complete Time: 04:24 [facility] 08/23 01:55 Order name: Labs collected and sent; Complete Time: 02:12 [facility] 08/23 01:55 Order name: O2 Per Protocol; Complete Time: 02:12 [facility] 08/23 01:55 Order name: O2 Sat Monitoring; Complete Time: 02:13 [facility] 08/23 02:38 Order name: Urine Dipstick-Ancillary (obtain specimen); Complete Time: 02:38 vc1 Administered Medications: 02:24 Drug: Zofran (Ondansetron) 4 mg Route: IVP; Site: right antecubital; vc1 02:24 Drug: morphine 4 mg Route: IVP; Infused Over: 4 mins; Site: right antecubital; vc1 Disposition Summary: 08/23/21 05:50 Discharge Ordered Location: Home [facility] Problem: new [facility] Symptoms: have improved [facility] Condition: Stable [facility] Diagnosis - Chest pain, unspecified mh7 Followup: [facility] - With: Private Physician - When: 1 - 2 days - Reason: Worsening of condition, Recheck today's complaints, Continuance of care, Re-evaluation by your physician Discharge Instructions: - Discharge Summary Sheet [facility] - Chest Wall Pain, [id number] [facility] - Nonspecific Chest Pain, Adult, [id number] [facility] Forms: - Medication Reconciliation Form [facility] - Thank You Letter [facility] - Antibiotic Education [facility] - Prescription Opioid Use [facility] Prescriptions: - Cyclobenzaprine 5 mg Oral Tablet - take 1 tablet by ORAL route 3 times per day As needed; 15 tablet; Refills: 0, [facility] Product Selection Permitted - Ibuprofen 800 mg Oral Tablet - take 1 tablet by ORAL route every 8 hours As needed take with food; 15 tablet; 7 Refills: 0, Product Selection Permitted Signatures: Dispatcher [employer] Inessa Taveras RN RN Inocencio Tee MD MD [facility] Gema Murcia RN RN vc1
[2021-08-23 06:35] VITALS: TEMP 97.4
[2021-08-23 06:50] VITALS: O2SAT 99
[2021-08-23 06:52] VITALS: BP 124/71
--- NOTE | 2021-08-23 12:40 | EKG ---
Test Date: 2021-08-23 Test Time: 01:39:34 Student Development Dean: MALAIKA MEASUREMENT RESULTS: Intervals: Rate: 82 [place]: 116 QRSD: 78 QT: 366 QTc: 427 [place]: P: 47 NJ: 116 QRS: 61 T: 58 INTERPRETIVE STATEMENTS: Normal sinus rhythm Normal ECG No previous ECG available for comparison Electronically Signed On 08-23-21 12:38:59 CDT by Mateto Burleson
--- NOTE | 2021-08-24 10:18 | RAD REPORT ---
EXAM DESCRIPTION: RAD - Chest Single View - 08/23/2021 2:12 am CLINICAL HISTORY: The patient is 46 years old and is Female; CHEST PAIN TECHNIQUE: Frontal view of the chest. COMPARISON: No relevant prior studies available. FINDINGS: LUNGS: Unremarkable. No consolidation. PLEURAL SPACE: Unremarkable. No pneumothorax. HEART: Unremarkable. No cardiomegaly. MEDIASTINUM: Unremarkable. BONES/JOINTS: Unremarkable. UPPER ABDOMEN: Unremarkable as visualized. IMPRESSION: No acute cardiopulmonary process. Electronically signed by: Lizbeth Kent MD 08/23/2021 3:52 AM CDT Due to temporary technical issues with the PACS/Fluency reporting system, reports are being signed by the in house radiologists without review as a courtesy to insure prompt reporting. The interpreting radiologist is fully responsible for the content of the report.
== END 2021-08-23 06:19 | disposition home or self-care (01) ==
LOC: ER 01:35
DX: R07.89 Other chest pain (principal); Z88.1 Allergy status to other antibiotic agents; Z88.8 Allergy status to other drugs, medicaments and biological substances
CPT/HCPCS: 93005; 85025; 80048; 36415; 85379; 81003; 84484; 71045; 96375; 96374; 99284; J2405